=== PATIENT | male | born 1940 | race Caucasian/White ===

== ENCOUNTER → 2016-07-05 | Outpatient (CLI) | payer MEDICARE, BC ==
[2016-07-05 10:03] LABS: Appearance,Urine Clear (Clear); Bilirubin,Urine Negative (Negative); Glucose,Urine (UA) Negative (Negative); Ketones,Urine Negative (Negative); Leukocyte Esterase,Urine Negative (Negative); Nitrite,Urine Negative (Negative); PH, Urine 6.5 (5.0-8.0); Protein,Urine Negative (Negative); Specific Gravity,Urine 1.018 (1.001-1.035); UA Billing (MACRO vs. MICRO) CHEM; Urobilinogen,Urine <2.0 mg/dL (<2.0)
[2016-07-05 10:36] LABS: Calcium 10.1 mg/dL (8.4-10.2); Magnesium 2.1 mg/dL (1.6-2.3); Phosphorous 3.4 mg/dL (2.5-4.5); Potassium 5.2 mmol/L (3.5-5.1); Uric Acid 7.4 mg/dL (3.5-8.5)
[2016-07-05 10:39] LABS: Basophils % (A) 1 %; CH 26.8; CHCM 30.8; Eosinophils # (A) 0.1 k/uL (0-0.7); Eosinophils % (A) 1 %; HCT 45.1 % (39.0-53.0); HDW 2.72; HGB 13.9 gm/dL (13.0-17.5); Hypochromasia Moderate; Luc # (Auto) 0.13; Luc % (Auto) 2; Lymphocytes # (A) 1.2 k/uL (1.0-4.8); Lymphocytes % (A) 20 %; MCH 26.8 pg (25.0-35.0); MCHC 30.7 g/dL (31.0-37.0); MCV 87.3 fL (80.0-100.0); Monocytes # (A) 0.5 k/uL (0-1.0); Monocytes % (A) 9 %; Neutrophils # (A) 4.1 k/uL (1.3-7.7); Neutrophils % (A) 68 %; RBC 5.17 m/uL (4.30-5.90); WBC (Perox) 5.87
[2016-07-05 10:44] LABS: % Iron Saturation 12.5 % (20-50)
[2016-07-05 11:24] LABS: Manual Review Performed
== END | disposition home or self-care (01) ==
LOC: LABWHC1 09:20
PROVIDERS: ATTEND Nurse Practitioner Family
DX: N18.3 Chronic kidney disease, stage 3 (moderate) (principal); D64.9 Anemia, unspecified; E83.52 Hypercalcemia; E83.39 Other disorders of phosphorus metabolism; M10.9 Gout, unspecified; N39.0 Urinary tract infection, site not specified
CPT/HCPCS: 36415; 80048; 81003; 82306; 82728; 83540; 83550; 83735; 83970; 84100; 84550; 85025

== ENCOUNTER → 2016-08-07 | Outpatient (CLI) | payer MEDICARE, BC ==
--- NOTE | 2016-08-07 11:35 | XR ---
EXAMINATION TYPE: XR chest 2V DATE OF EXAM: 08/07/2016 11:02 AM COMPARISON: 08/30/2015 HISTORY: Cough and congestion FINDINGS: The lungs are clear and there is no pneumothorax, pleural effusion, or focal pneumonia. The heart i s enlarged. Postoperative change seen. Biapical pleural thickening. No interstitial edema or pleural effusion. Hypertrophic and degenerative change of the spine. IMPRESSION: 1. No acute process.
== END | disposition home or self-care (01) ==
LOC: RADXRMAIN 10:44
PROVIDERS: ATTEND Internal Medicine Sleep Medicine
DX: J40 Bronchitis, not specified as acute or chronic (principal); J44.9 Chronic obstructive pulmonary disease, unspecified
CPT/HCPCS: 71020

== ENCOUNTER → 2016-08-31 | Outpatient (CLI) | payer MEDICARE, BC ==
[2016-08-31 08:14] LABS: Potassium 4.7 mmol/L (3.5-5.1); Total Bilirubin 0.7 mg/dL (0.2-1.3); Total Protein 6.6 g/dL (6.3-8.2)
== END | disposition home or self-care (01) ==
LOC: LABWHC1 07:08
PROVIDERS: ATTEND Internal Medicine Interventional Cardiology
DX: E78.2 Mixed hyperlipidemia (principal)
CPT/HCPCS: 36415; 80053; 80061

== ENCOUNTER → 2016-11-06 | Outpatient (CLI) | payer MEDICARE, BC ==
[2016-11-06 07:46] LABS: Basophils # (A) 0.1 k/uL (0-0.2); Basophils % (A) 1 %; CHCM 31.6; Eosinophils # (A) 0.1 k/uL (0-0.7); Eosinophils % (A) 2 %; HCT 45.1 % (39.0-53.0); HDW 2.77; HGB 14.3 gm/dL (13.0-17.5); Hypochromasia Slight; Luc # (Auto) 0.19; Luc % (Auto) 4; Lymphocytes # (A) 1.4 k/uL (1.0-4.8); Lymphocytes % (A) 26 %; MCH 27.1 pg (25.0-35.0); MCHC 31.6 g/dL (31.0-37.0); MCV 85.7 fL (80.0-100.0); Mean Platelet Volume 8.1; Monocytes # (A) 0.5 k/uL (0-1.0); Monocytes % (A) 9 %; Neutrophils # (A) 3.2 k/uL (1.3-7.7); Neutrophils % (A) 59 %; RBC 5.27 m/uL (4.30-5.90); RDW 15.5 % (11.5-15.5); WBC 5.4 k/uL (3.8-10.6); WBC (Perox) 5.36
[2016-11-06 07:51] LABS: Appearance,Urine Clear (Clear); Bilirubin,Urine Negative (Negative); Glucose,Urine (UA) Negative (Negative); Ketones,Urine Negative (Negative); Leukocyte Esterase,Urine Negative (Negative); Nitrite,Urine Negative (Negative); PH, Urine 5.5 (5.0-8.0); Protein,Urine Trace (Negative); Specific Gravity,Urine 1.018 (1.001-1.035); UA Billing (MACRO vs. MICRO) CHEM; Urobilinogen,Urine <2.0 mg/dL (<2.0)
[2016-11-06 11:23] LABS: Calcium 9.8 mg/dL (8.4-10.2); Phosphorous 2.9 mg/dL (2.5-4.5); Potassium 4.5 mmol/L (3.5-5.1); Uric Acid 7.4 mg/dL (3.5-8.5)
[2016-11-06 11:40] LABS: % Iron Saturation 15.4 % (20-50)
== END | disposition home or self-care (01) ==
LOC: LABWHC1 07:13
PROVIDERS: ATTEND Nurse Practitioner Family
DX: N18.3 Chronic kidney disease, stage 3 (moderate) (principal); D64.9 Anemia, unspecified; M10.9 Gout, unspecified; N39.0 Urinary tract infection, site not specified
CPT/HCPCS: 36415; 80048; 81003; 82306; 82728; 83540; 83550; 83735; 83970; 84100; 84550; 85025

== ENCOUNTER → 2016-11-20 | Outpatient (CLI) | payer MEDICARE, BC ==
--- NOTE | 2016-11-20 09:26 | XR ---
EXAMINATION TYPE: XR thoracic spine complete DATE OF EXAM: 11/20/2016 9:20 AM COMPARISON: NONE HISTORY: Pain Alignment is anatomic. There is no compression deformities. Vertebral body height and disc interspa tasha are maintained. Postsurgical change involving the sternum and cardiac device with cardiomegaly n oted. Mild degenerative disc disease at all levels. No compression deformities. IMPRESSION: 1. Multilevel mild degenerative disc disease.
--- NOTE | 2016-11-20 09:27 | XR ---
EXAM TYPE: LUMBAR SPINE X RAY SERIES COMPARISON: NONE HISTORY: Lower back pain TECHNIQUE: 4 views are submitted. FINDINGS: Alignment is anatomic. The pedicles are intact. The transverse processes are intact. There is opal ed facet arthropathy L4-5 and L5-S1. Multilevel hypertrophic changes are seen. Moderate degenerative disc disease L4-5 and L5-S1. Vascular calcifications are seen. Ectasia of the distal abdominal aorta suspected. Correlate clinical ly. IMPRESSION: 1. Multilevel hypertrophic and degenerative disc disease.
--- NOTE | 2016-11-20 09:29 | XR ---
EXAMINATION TYPE: XR pelvis AP view DATE OF EXAM: 11/20/2016 9:20 AM COMPARISON: NONE HISTORY: Pain The osseous structures are intact and the joint spaces are preserved. No acute fracture is seen. Vi sualized bowel gas pattern is nonspecific. Postsurgical changes and vascular calcifications noted. S clerotic density involving the left proximal femur is nonspecific and possibly related to bone island . Degenerative change lower lumbar spine. Arthropathy of the hip joints. IMPRESSION: 1. No acute fracture. 2. Arthropathy of the hips with nonspecific sclerotic lesion involving the left femoral neck. Bone is land in the differential. Correlate with bone scan as clinically warranted.
--- NOTE | 2016-11-20 09:30 | XR ---
EXAMINATION TYPE: XR cervical spine limited DATE OF EXAM: 11/20/2016 9:20 AM COMPARISON: NONE HISTORY: Pain TECHNIQUE: Four views are submitted. FINDINGS: The odontoid is intact. There are no compression deformities. The prevertebral soft tissue structur es are within normal limits. Calcification in the soft tissues of the neck likely related carotid ar basilio. Sternotomy wires are seen and there is a cardiac device. Multilevel degenerative disc disease s een from level C3-T1 with hypertrophic changes. IMPRESSION: 1. Multilevel degenerative disc disease. 2. Correlate for carotid artery atherosclerotic disease.
== END | disposition home or self-care (01) ==
LOC: RADXRMAIN 08:34
PROVIDERS: ATTEND Chiropractor
DX: M51.35 Other intervertebral disc degeneration, thoracolumbar region (principal); M50.30 Other cervical disc degeneration, unspecified cervical region; M12.852 Other specific arthropathies, not elsewhere classified, left hip; M85.88 Other specified disorders of bone density and structure, other site
CPT/HCPCS: 72040; 72072; 72100; 72170

== ENCOUNTER → 2017-01-29 | Outpatient (CLI) | payer MEDICARE, BC ==
[2017-01-29 08:46] LABS: Calcium 9.2 mg/dL (8.4-10.2); Potassium 4.9 mmol/L (3.5-5.1)
== END | disposition home or self-care (01) ==
LOC: LABWHC1 07:16
PROVIDERS: ATTEND Nurse Practitioner Family
DX: N18.3 Chronic kidney disease, stage 3 (moderate) (principal)
CPT/HCPCS: 36415; 80048

== ENCOUNTER → 2017-03-19 | Outpatient (CLI) | payer MEDICARE, BC ==
[2017-03-19 09:32] LABS: Anisocytosis Slight; Basophils % (A) 1 %; CH 28.4; CHCM 32.4; Eosinophils # (A) 0.1 k/uL (0-0.7); Eosinophils % (A) 2 %; HCT 44.3 % (39.0-53.0); HDW 2.63; HGB 13.7 gm/dL (13.0-17.5); Luc # (Auto) 0.16; Luc % (Auto) 3; Lymphocytes # (A) 1.4 k/uL (1.0-4.8); Lymphocytes % (A) 26 %; MCH 27.4 pg (25.0-35.0); MCHC 30.9 g/dL (31.0-37.0); MCV 88.5 fL (80.0-100.0); Mean Platelet Volume 8.5; Monocytes # (A) 0.4 k/uL (0-1.0); Monocytes % (A) 8 %; Neutrophils # (A) 3.2 k/uL (1.3-7.7); Neutrophils % (A) 60 %; RBC 5.01 m/uL (4.30-5.90); RDW 17.1 % (11.5-15.5); WBC 5.3 k/uL (3.8-10.6); WBC (Perox) 5.39
[2017-03-19 09:51] LABS: Calcium 9.7 mg/dL (8.4-10.2); Potassium 4.8 mmol/L (3.5-5.1)
[2017-03-19 16:47] LABS: Iron Saturation 19.95 (15.00-50.00)
== END | disposition home or self-care (01) ==
LOC: LABWHC1 08:21
PROVIDERS: ATTEND Nurse Practitioner Family
DX: N18.3 Chronic kidney disease, stage 3 (moderate) (principal); D64.9 Anemia, unspecified; E83.52 Hypercalcemia
CPT/HCPCS: 36415; 80048; 82306; 82570; 82728; 83540; 83550; 83970; 84156; 85025

== ENCOUNTER → 2017-04-23 | Outpatient (CLI) | payer MEDICARE, BC ==
[2017-04-23 08:12] LABS: ALT 28 U/L (21-72); AST 32 U/L (17-59); Alkaline Phosphatase 29 U/L (38-126); Anion Gap 8 mmol/L; Blood Urea Nitrogen 35 mg/dL (9-20); Calcium 9.7 mg/dL (8.4-10.2); Carbon Dioxide 28 mmol/L (22-30); Chloride 106 mmol/L (98-107); Cholesterol 111 mg/dL (<200); Glucose 88 mg/dL (74-99); HDL Cholesterol 43 mg/dL (40-60); Non-African American GFR(MDRD) 50 (>60 ml/min/1.73 sqM); Potassium 4.7 mmol/L (3.5-5.1); Sodium 142 mmol/L (137-145); Total Bilirubin 0.6 mg/dL (0.2-1.3); Total Protein 6.6 g/dL (6.3-8.2)
== END | disposition home or self-care (01) ==
LOC: LABWHC1 07:12
PROVIDERS: ATTEND Internal Medicine Interventional Cardiology
DX: N18.3 Chronic kidney disease, stage 3 (moderate) (principal); E78.2 Mixed hyperlipidemia
CPT/HCPCS: 36415; 80053; 80061

== ENCOUNTER → 2017-05-22 | Outpatient (CLI) | payer MEDICARE, BC ==
--- NOTE | 2017-05-22 11:42 | US ---
EXAMINATION TYPE: US venous doppler duplex LE RT DATE OF EXAM: 05/22/2017 11:24 AM COMPARISON: NONE CLINICAL HISTORY: 76-year-old male R60.0 EDEMA. SIDE PERFORMED: Right TECHNIQUE: The lower extremity deep venous system is examined utilizing real time linear array sonog francie with graded compression, doppler sonography and color-flow sonography. FINDINGS: VESSELS IMAGED: External Iliac Vein (EIV) Common Femoral Vein Deep Femoral Vein Greater Saphenous Vein * Femoral Vein Popliteal Vein Small Saphenous Vein * Proximal Calf Veins (* superficial vessels) Right Leg: Negative for DVT Preliminary results called to office and given to Penny immediately following exam. IMPRESSION: No evidence for DVT within the right lower extremity imaged from the groin to the upper calf.
== END | disposition home or self-care (01) ==
LOC: RADUSWWP 10:38
PROVIDERS: ATTEND Family Medicine
DX: R60.0 Localized edema (principal)

== ENCOUNTER → 2017-07-03 | Outpatient (CLI) | payer MEDICARE, BC ==
[2017-07-03 08:29] LABS: Appearance,Urine Clear (Clear); Bilirubin,Urine Negative (Negative); Blood,Urine Negative (Negative); Color,Urine Yellow; Glucose,Urine (UA) Negative (Negative); Ketones,Urine Negative (Negative); Leukocyte Esterase,Urine Negative (Negative); Nitrite,Urine Negative (Negative); Protein,Urine Negative (Negative); Specific Gravity,Urine 1.016 (1.001-1.035); Urobilinogen,Urine <2.0 mg/dL (<2.0)
[2017-07-03 08:30] LABS: Basophils # (A) 0.1 k/uL (0-0.2); Basophils % (A) 1 %; Eosinophils # (A) 0.2 k/uL (0-0.7); Eosinophils % (A) 2 %; HCT 46.2 % (39.0-53.0); HGB 14.1 gm/dL (13.0-17.5); Hypochromasia Slight; Lymphocytes # (A) 1.9 k/uL (1.0-4.8); Lymphocytes % (A) 26 %; MCHC 30.5 g/dL (31.0-37.0); MCV 88.4 fL (80.0-100.0); Mean Platelet Volume 8.5; Monocytes # (A) 0.6 k/uL (0-1.0); Monocytes % (A) 9 %; Neutrophils # (A) 4.3 k/uL (1.3-7.7); Neutrophils % (A) 59 %; Platelet Count 358 k/uL (150-450); RBC 5.23 m/uL (4.30-5.90); RDW 15.5 % (11.5-15.5); WBC 7.2 k/uL (3.8-10.6)
[2017-07-03 08:34] LABS: Anion Gap 8 mmol/L; Blood Urea Nitrogen 36 mg/dL (9-20); Carbon Dioxide 31 mmol/L (22-30); Chloride 103 mmol/L (98-107); Glucose 97 mg/dL (74-99); Phosphorus 3.5 mg/dL (2.5-4.5); Potassium 5.2 mmol/L (3.5-5.1); Sodium 142 mmol/L (137-145); Uric Acid 10.3 mg/dL (3.5-8.5)
[2017-07-03 16:07] LABS: Iron Saturation 9.34 (15.00-50.00)
[2017-07-03 16:15] LABS: Vitamin D 25 Hydroxy 40.2 ng/mL (30.0-100.0)
[2017-07-03 17:51] LABS: Parathyroid Hormone Intact 51.4 pg/mL (14.0-72.0)
== END | disposition home or self-care (01) ==
LOC: LABWHC1 07:28
PROVIDERS: ATTEND Internal Medicine Nephrology
DX: N18.3 Chronic kidney disease, stage 3 (moderate) (principal); D64.9 Anemia, unspecified; E55.9 Vitamin D deficiency, unspecified; E21.3 Hyperparathyroidism, unspecified; M10.9 Gout, unspecified; N39.0 Urinary tract infection, site not specified
CPT/HCPCS: 36415; 80048; 81003; 82306; 82728; 83540; 83550; 83735; 83970; 84100; 84550; 85025

== ENCOUNTER → 2017-07-23 | Outpatient (CLI) | payer MEDICARE, BC ==
[2017-07-23 08:48] LABS: ALT 30 U/L (21-72); AST 24 U/L (17-59); Cholesterol 127 mg/dL (<200); HDL Cholesterol 40 mg/dL (40-60); LDL Cholesterol,Calculated 63 mg/dL (0-99); Triglycerides 118 mg/dL (<150)
== END | disposition home or self-care (01) ==
LOC: LABWHC1 08:17
PROVIDERS: ATTEND Internal Medicine Interventional Cardiology
DX: E78.2 Mixed hyperlipidemia (principal)
CPT/HCPCS: 36415; 80061; 84450; 84460

== ENCOUNTER → 2017-10-10 | Outpatient (CLI) | payer MEDICARE, BC ==
--- NOTE | 2017-10-10 13:18 | CT ---
EXAMINATION TYPE: CT chest wo con DATE OF EXAM: 10/10/2017 COMPARISON: CT chest October 06, 2016 and older studies HISTORY: Thoracic aneurysm without mention of rupture CT DLP: 288 mGycm. Automated Exposure Control for Dose Reduction was Utilized. TECHNIQUE: CT scan of the thorax is performed without IV contrast. FINDINGS: LUNGS: Mild underlying emphysematous change is redemonstrated. There is medial right middle lobe line ar scarring near axial image 38 again seen. There is central left basilar linear scarring near diaphr agm redemonstrated. There is mild to moderate biapical pleural/parenchymal scarring redemonstrated. N o suspicious consolidation is present. No pleural effusion or pneumothorax is evident bilaterally. No new suspicious nodule or mass is identified. MEDIASTINUM: Lack of IV contrast is noted to limit evaluation for mediastinal and especially hilar ad enopathy. Post CABG changes with mediastinal clips and sternal wires is redemonstrated. There are no definitive greater than 1 cm hilar or mediastinal lymph nodes. No significant pericardial effusion is seen. Cardiomegaly is again seen. Multi lead pacemaker/defibrillator is redemonstrated. Moderate t o severe right atrial dilatation is again seen. Ascending aorta measures up to 4.1 cm diameter axial image 27 significant change from most recent study. There is persistent mild to moderate calcified pl aque along course of the thoracic aorta not significantly changed. Along the anterolateral aspect of the proximal descending aorta just past three-vessel takeoff there is redemonstration of eccentric an eurysm 4.1 x 4.0 cm axial image 20 accounting for technical differences, not significantly changed fr om most recent study, progression from older studies is however noted. OTHER: Small hiatal hernia is redemonstrated. There are small simple appearing cysts in visualized po rtion of upper poles of both kidneys redemonstrated. Small degree of bilateral gynecomastia is again seen. Moderate multilevel anterior and lateral spurring in the thoracic spine is seen. IMPRESSION: 1. Probable minimal interval progression of eccentric proximal descending thoracic aortic aneurysm me asuring up to 4.1 cm currently that continues to slowly increase in size over older studies.
== END | disposition home or self-care (01) ==
LOC: RADCTMAIN 12:08
PROVIDERS: ATTEND Thoracic Surgery (Cardiothoracic Vascular Surgery)
DX: I71.2 Thoracic aortic aneurysm, without rupture (principal)
CPT/HCPCS: 71250

== ENCOUNTER 2017-11-30 19:06 | Emergency (ER) | payer MEDICARE, BC ==
[2017-11-30 19:18] VITALS: RESP 18
--- NOTE | 2017-11-30 20:04 | ED ---
Head Injury HPI - General Chief complaint: Head Injury Stated complaint: Bumped head, on blood thiners Time Seen by Provider: 11/30/17 19:21 Source: patient Mode of arrival: ambulatory Limitations: no limitations - History of Present Illness Initial comments: 77-year-old male patient presents to the emergency department today for evaluation after sustaining a head injury. Patient states around 10 this morning he was loading a generator onto a hand cart when the cart flipped up and the handle struck him in the forehead. He denies any loss of consciousness with this injury. States he has not been having any headaches, dizziness, weakness, blurred vision, or double vision since. States that he does takes xarelto and thought he should be checked out. He has had no nausea or vomiting. States he feels fine other than the bump on his head. Patient denies any neck pain, back pain, chest pain, shortness of breath, abdominal pain, or difficulties with bowel movements or urination. MD Complaint: head injury - Related Data Home Medications Medication Instructions Recorded Confirmed ALPRAZolam [Xanax] 0.5 mg PO HS 08/30/15 11/30/17 Aspirin [Adult Low Dose Aspirin EC] 81 mg PO DAILY 08/30/15 11/30/17 Cholecalciferol [Vitamin D3] 1,000 unit PO DAILY 08/30/15 11/30/17 Fenofibrate Nanocrystallized 145 mg PO DAILY 08/30/15 11/30/17 [Tricor] Fish Oil/Dha/Epa [Fish Oil 1,200 1 tab PO BID 08/30/15 11/30/17 mg Fish Oil] Multivitamins, Thera [Multivitamin] 1 tab PO DAILY 08/30/15 11/30/17 Pantoprazole Sodium [Protonix] 40 mg PO DAILY 08/30/15 11/30/17 Rivaroxaban [Xarelto] 20 mg PO DAILY 08/30/15 11/30/17 Simvastatin [Zocor] 20 mg PO HS 08/30/15 11/30/17 Tadalafil [Cialis] 5 mg PO DAILY PRN 08/30/15 11/30/17 Tamsulosin HCl [Flomax] 0.4 mg PO HS 08/30/15 11/30/17 amLODIPine [Norvasc] 10 mg PO DAILY 08/30/15 11/30/17 Burnet 1,950 mg PO BID 11/30/17 11/30/17 Furosemide [Lasix] 20 mg PO DAILY 11/30/17 11/30/17 Montelukast [Singulair] 10 mg PO HS 11/30/17 11/30/17 Potassium Chloride [Klor-Con 10] 10 meq PO DAILY 11/30/17 11/30/17 Allergies/Adverse reactions: Allergies Allergy/AdvReac Type Severity Reaction Status Date / Time morphine Allergy Nausea & Verified 11/30/17 19:33 Vomiting Review of Systems ROS Statement: Those systems with pertinent positive or pertinent negative responses have been documented in the HPI. ROS Other: All systems not noted in ROS Statement are negative. Past Medical History Past Medical History: Atrial Fibrillation, GERD/Reflux, Prostate Disorder Additional Past Medical History / Comment(s): aortic aneurysm (new one not repaired yet), History of Any Multi-Drug Resistant Organisms: None Reported Past Surgical History: Coronary Bypass/CABG, Hernia Repair Additional Past Surgical History / Comment(s): pacer, aortic aneurysm repair, Past Psychological History: No Psychological Hx Reported Smoking Status: Former smoker Past Alcohol Use History: Occasional Past Drug Use History: None Reported General Exam Limitations: no limitations General appearance: alert, in no apparent distress, other (This is a well- developed, well-nourished elderly male patient no acute distress. Vital signs upon presentation are temperature 97.0F, pulse 80, respirations 18, blood pressure 129/65, pulse ox 97% on room air.) Head exam: Present: other (There is a hematoma to the central frontal scalp. There is no bony step-off or deformity noted to palpation around this area.) Eye exam: Present: normal appearance, PERRL, EOMI. Absent: scleral icterus, conjunctival injection, nystagmus, periorbital swelling ENT exam: Present: normal exam, normal oropharynx, mucous membranes moist Neck exam: Present: normal inspection, full ROM, other (Nontender, no step-off, no deformity to firm midline palpation of the posterior cervical spine. Full range of motion without pain or limitation.). Absent: tenderness, meningismus, lymphadenopathy Respiratory exam: Present: normal lung sounds bilaterally. Absent: respiratory distress, wheezes, rales, rhonchi, stridor Cardiovascular Exam: Present: regular rate, normal rhythm, normal heart sounds. Absent: systolic murmur, diastolic murmur, rubs, gallop, clicks GI/Abdominal exam: Present: soft, normal bowel sounds. Absent: distended, tenderness, guarding, rebound, rigid Back exam: Present: normal inspection. Absent: vertebral tenderness Neurological exam: Present: alert, oriented X3, CN II-XII intact Psychiatric exam: Present: normal affect, normal mood Skin exam: Present: warm, dry, intact, normal color. Absent: rash Course Vital Signs 11/30/17 11/30/17 11/30/17 19:14 21:20 21:35 Temperature 97.0 F L 97.3 F L Pulse Rate 80 66 Respiratory 18 18 Rate Blood Pressure 129/65 132/72 O2 Sat by Pulse 97 98 Oximetry Medical Decision Making - Medical Decision Making 77-year-old male patient presented to the emergency department today for evaluation after sustaining a head injury. Physical examination does reveal hematoma to the central frontal scalp, there is no bony step-off or deformity noted to palpation around this area. Patient is neurologically intact. CT of the brain and C-spine was performed. There is no evidence of acute intracranial abnormalities, cervical spine does demonstrate multilevel degenerative changes however no acute fractures or dislocations. Did discuss findings and results with the patient and his . They are discharged home to follow-up with his primary care physician. Return parameters discussed in detail. They verbalize understanding and agree with this plan. - Radiology Data Radiology results: report reviewed, image reviewed Computed tomography scan of the head and C-spine were performed without contrast. Impression by Dr. Keith shows no acute fracture dislocation evident in the cervical spine. Multilevel degenerative changes of the cervical spine as detailed above. No acute intracranial hemorrhage or midline shift is seen. Mild to moderate diffuse renal atrophy and chronic small vessel ischemic changes appreciated. Disposition Clinical Impression: Head injury, Scalp hematoma Disposition: HOME SELF-CARE Condition: Good Instructions: Head Injury (ED), Hematoma (ED) Additional Instructions: Apply ice to the forehead. Return here immediately for any signs or symptoms of worsening head injury including but not limited to increased headache, blurred vision, nausea, vomiting, dizziness, or confusion. Follow-up with your primary care physician for recheck in 1-2 days. Return here immediately for any new, worsening, or concerning symptoms. Is patient prescribed a controlled substance at d/c from ED?: No Referrals: Seth Rey DO [Primary Care Provider] - 1-2 days Time of Disposition: 21:06
--- NOTE | 2017-11-30 20:59 | CT ---
EXAMINATION TYPE: CT brain alfredo bejarano DATE OF EXAM: 11/30/2017 COMPARISON: NONE HISTORY: Hit with hand cart in frontal region. No LOC. Headache and neck pain. CT DLP: 1406.4 mGycm. Automated Exposure Control for Dose Reduction was Utilized. TECHNIQUE: CT scan of the head and cervical spine are performed without contrast. FINDINGS: There is no acute intracranial hemorrhage or midline shift identified. There is ventricul ar and sulcal prominence consistent with diffuse cerebral atrophy. There is low-attenuation in the pe riventricular white matter. The globes are intact and the visualized sinuses are clear. The calvarium is intact. Cervical spine is visualized in its entirety from C1 through upper thoracic levels and demonstrates s atisfactory alignment without evidence of acute fracture or dislocation. Prevertebral soft tissue ap pears within normal limits. The C1-C2 articulation is within normal limits on the coronal images. Vertebral body heights are maintained. There is mild to moderate spurring and disc space narrowing C3 -C4 and C5-C6 levels. Posterior spur disc complex effacing anterior thecal sac C5-C6 level on sagitta l images. Review of axial images shows right paracentral spur disc complex effacing anterolateral the guy sac and causing mild right-sided neural foraminal narrowing C3-C4 level. There is some marginal s purring causing moderate left-sided neural foraminal narrowing C4-C5 level. Marginal spurring contrib utes to bilateral moderate to severe neural foraminal narrowing C5-C6 level. Posterior spur disc comp mari effacing anterolateral thecal sac and causes asymmetric moderate right-sided neural foraminal js rowing at C6-C7 level. Thyroid gland is within normal limits. Lung apices are minimally imaged. There is moderate to severe calcified plaque at bilateral carotid bulbs incidentally seen. IMPRESSION: 1. There is no acute fracture or dislocation evident in the cervical spine. Multilevel degenerative c hanges in cervical spine as detailed above. 2. No acute intracranial hemorrhage or midline shift is seen. Mild to moderate diffuse cerebral atrop hy and chronic small vessel ischemic change is appreciated.
[2017-11-30 21:21] VITALS: BP 132/72; PULSE 66
[2017-11-30 21:36] VITALS: TEMP 97.3
== END 2017-11-30 21:35 | disposition home or self-care (01) ==
LOC: EC 19:06
DX: S00.03XA Contusion of scalp, initial encounter (principal); I48.91 Unspecified atrial fibrillation; K21.9 Gastro-esophageal reflux disease without esophagitis; N42.9 Disorder of prostate, unspecified; Z87.891 Personal history of nicotine dependence; Z79.01 Long term (current) use of anticoagulants; Z79.82 Long term (current) use of aspirin; Z79.899 Other long term (current) drug therapy; Z88.5 Allergy status to narcotic agent; Z95.1 Presence of aortocoronary bypass graft; W22.8XXA Striking against or struck by other objects, initial encounter; Y92.009 Unspecified place in unspecified non-institutional (private) residence as the place of occurrence of the external cause
CPT/HCPCS: 70450; 72125; 99283

== ENCOUNTER → 2017-12-12 | Outpatient (CLI) | payer MEDICARE, BC ==
--- NOTE | 2017-12-12 11:32 | US ---
EXAMINATION TYPE: US kidneys/renal and bladder DATE OF EXAM: 12/12/2017 COMPARISON: US 07/13/2015, CT 08/27/2012 CLINICAL HISTORY: N18.3 Chronic kidney disease, stage 3 (moderate). EXAM MEASUREMENTS: Right Kidney: 9.9 x 5.0 x 5.1 cm Left Kidney: 11.3 x 4.8 x 5.2 cm Right Kidney: No hydronephrosis. Multiple cysts visualized, largest upper pole measuring 3.3 x 3.4 x 3.3 cm Left Kidney: No hydronephrosis. Multiple cysts visualized, largest upper pole measuring 2.7 x 3.2 x 2 .8 cm. This cyst appears to have irregular boarders and an internal septation. Bladder: Not fully distended, wnl as visualized Bilateral Jets seen: No, bladder not fully distended IMPRESSION: Multiple bilateral simple appearing renal cysts the largest on the right measuring up to 3.4 cm and t he largest on the left measuring up to 3.2 cm. The left renal cyst is minimally complex with internal septation in the upper pole and appears new from the prior exam. Six-month follow up is recommended for this minimally complex cystic lesion.
== END | disposition home or self-care (01) ==
LOC: RADUSWWP 09:30
PROVIDERS: ATTEND Internal Medicine Nephrology
DX: N28.1 Cyst of kidney, acquired (principal); N18.3 Chronic kidney disease, stage 3 (moderate)
CPT/HCPCS: 76770

== ENCOUNTER → 2018-02-04 | Outpatient (CLI) | payer MEDICARE, BC ==
[2018-02-04 08:03] LABS: ALT 27 U/L (21-72); AST 24 U/L (17-59); Cholesterol 118 mg/dL (<200); HDL Cholesterol 39 mg/dL (40-60); Triglycerides 95 mg/dL (<150)
[2018-02-04 08:04] LABS: LDL Cholesterol,Calculated 60 mg/dL (0-99)
== END | disposition home or self-care (01) ==
LOC: LABWHC1 07:06
PROVIDERS: ATTEND Nurse Practitioner Adult Health
DX: E78.2 Mixed hyperlipidemia (principal)
CPT/HCPCS: 36415; 80061; 84450; 84460

== ENCOUNTER → 2018-04-30 | Outpatient (CLI) | payer MEDICARE, BC ==
[2018-04-30 07:56] LABS: Basophils % (A) 1 %; Eosinophils # (A) 0.1 k/uL (0-0.7); Eosinophils % (A) 2 %; HCT 42.8 % (39.0-53.0); HGB 13.9 gm/dL (13.0-17.5); Lymphocytes # (A) 1.2 k/uL (1.0-4.8); Lymphocytes % (A) 23 %; MCH 28.4 pg (25.0-35.0); MCHC 32.5 g/dL (31.0-37.0); MCV 87.4 fL (80.0-100.0); Mean Platelet Volume 8.4; Monocytes # (A) 0.4 k/uL (0-1.0); Monocytes % (A) 7 %; Neutrophils # (A) 3.5 k/uL (1.3-7.7); Neutrophils % (A) 65 %; Platelet Count 294 k/uL (150-450); RDW 14.9 % (11.5-15.5); WBC 5.4 k/uL (3.8-10.6)
[2018-04-30 08:41] LABS: Appearance,Urine Clear (Clear); Bilirubin,Urine Negative (Negative); Blood,Urine Negative (Negative); Color,Urine Yellow; Glucose,Urine (UA) Negative (Negative); Ketones,Urine Negative (Negative); Leukocyte Esterase,Urine Negative (Negative); Nitrite,Urine Negative (Negative); Protein,Urine Negative (Negative); Specific Gravity,Urine 1.017 (1.001-1.035); Urobilinogen,Urine <2.0 mg/dL (<2.0)
[2018-04-30 16:22] LABS: Iron Saturation 15.14 (15.00-50.00)
[2018-04-30 16:31] LABS: Vitamin D 25 Hydroxy 45.7 ng/mL (30.0-100.0)
[2018-04-30 17:00] LABS: Anion Gap 7.5 mmol/L (4.00-12.00); Calcium 9.1 mg/dL (8.7-10.3); Carbon Dioxide 28.5 mmol/L (21.6-31.8); Potassium 4.1 mmol/L (3.5-5.5); Uric Acid 8.5 mg/dL (3.7-8.7)
[2018-04-30 17:05] LABS: Parathyroid Hormone Intact 44.1 pg/mL (14.0-72.0)
== END | disposition home or self-care (01) ==
LOC: LABWHC1 07:07
PROVIDERS: ATTEND Nurse Practitioner Family
DX: N18.3 Chronic kidney disease, stage 3 (moderate) (principal); D63.1 Anemia in chronic kidney disease; E55.9 Vitamin D deficiency, unspecified; E21.3 Hyperparathyroidism, unspecified; M10.9 Gout, unspecified; N39.0 Urinary tract infection, site not specified
CPT/HCPCS: 36415; 80048; 81003; 82306; 82728; 83540; 83550; 83970; 84550; 85025

== ENCOUNTER → 2018-06-06 | Outpatient (CLI) | payer MEDICARE, BC ==
--- NOTE | 2018-06-06 10:26 | US ---
EXAMINATION TYPE: US kidneys/renal and bladder DATE OF EXAM: 06/06/2018 COMPARISON: 12/12/2017 CLINICAL HISTORY: 77-year-old male N28.1 Bilateral renal cyst. TECHNIQUE: Multiple sonographic images of the kidneys and bladder are obtained. FINDINGS: EXAM MEASUREMENTS: Right Kidney: 10.9 x 4.8 x 5.1 cm Left Kidney: 12.9 x 5.7 x 5.6 cm No hydronephrosis on either side. Right Kidney: multiple cysts seen, largest upper pole measures 3.1 x 3.4 x 3.6 cm, versus 3.4 cm, pre viously. Left Kidney: multiple cysts seen, largest upper pole measures 2.9 x 2.2 x 2.2 cm Versed 3.2 cm, previ ously. This cyst again shows slightly irregular contour but no suspicious internal complexity. Bladder: not well distended Bilateral Jets seen: No IMPRESSION: 1. No hydronephrosis. 2. Multiple bilateral renal cysts measuring up to 3.6 cm. 3. The questioned left upper pole renal cyst is redemonstrated, slightly smaller at 2.9 cm versus 3.2 cm, previously. Area remains slightly irregular. The previously seen mild internal complexity is not identified on the present study. Consider a 6-12 month follow-up surveillance exam as a precautionar y measure.
== END | disposition home or self-care (01) ==
LOC: RADUSWWP 09:24
PROVIDERS: ATTEND Internal Medicine Nephrology
DX: N28.1 Cyst of kidney, acquired (principal)
CPT/HCPCS: 76770

== ENCOUNTER → 2018-08-20 | Outpatient (CLI) | payer MEDICARE, BC ==
[2018-08-20 11:54] LABS: Albumin 4.2 g/dL (3.80-4.90); Albumin/Globulin Ratio 2.1 (1.60-3.17); Calcium 9.1 mg/dL (8.7-10.3); LDL Cholesterol,Calculated 49.8 mg/dL (0.0-131.0); Potassium 4.5 mmol/L (3.5-5.5); Total Bilirubin 0.8 mg/dL (0.3-1.2); Total Protein 6.2 g/dL (6.2-8.2); VLDL Calculation 17.2 mg/dL (5.00-40.00)
== END ==
LOC: LABWHC1 06:30
PROVIDERS: ATTEND Internal Medicine Interventional Cardiology
DX: E78.2 Mixed hyperlipidemia (principal)
CPT/HCPCS: 36415; 80053; 80061

== ENCOUNTER → 2018-10-09 | Outpatient (CLI) | payer MEDICARE, BC ==
[2018-10-09 07:41] LABS: Appearance,Urine Clear (Clear); Bilirubin,Urine Negative (Negative); Blood,Urine Negative (Negative); Color,Urine Light Yellow; Glucose,Urine (UA) Negative (Negative); Ketones,Urine Negative (Negative); Leukocyte Esterase,Urine Negative (Negative); Nitrite,Urine Negative (Negative); Protein,Urine Negative (Negative); Specific Gravity,Urine 1.007 (1.001-1.035); Urobilinogen,Urine <2.0 mg/dL (<2.0)
[2018-10-09 08:28] LABS: Anisocytosis Slight; Basophils % (A) 1 %; Eosinophils # (A) 0.3 k/uL (0-0.7); Eosinophils % (A) 6 %; HCT 42.6 % (39.0-53.0); HGB 13.2 gm/dL (13.0-17.5); Hypochromasia Moderate; Lymphocytes # (A) 1.5 k/uL (1.0-4.8); Lymphocytes % (A) 30 %; MCHC 30.9 g/dL (31.0-37.0); MCV 84.1 fL (80.0-100.0); Monocytes # (A) 0.6 k/uL (0-1.0); Monocytes % (A) 11 %; Neutrophils # (A) 2.4 k/uL (1.3-7.7); Neutrophils % (A) 49 %; Platelet Count 316 k/uL (150-450); RBC 5.06 m/uL (4.30-5.90); RDW 16.1 % (11.5-15.5); WBC 4.9 k/uL (3.8-10.6)
[2018-10-09 12:03] LABS: Parathyroid Hormone Intact 55.6 pg/mL (14.0-72.0)
[2018-10-09 12:13] LABS: Vitamin D 25 Hydroxy 40.8 ng/mL (30.0-100.0)
[2018-10-09 12:23] LABS: Albumin 4.2 g/dL (3.80-4.90); Anion Gap 8.2 mmol/L (4.00-12.00); Carbon Dioxide 26.8 mmol/L (21.6-31.8); Magnesium 1.8 mg/dL (1.5-2.4); Phosphorus 3.3 mg/dL (2.4-5.1); Uric Acid 6.8 mg/dL (3.7-8.7)
[2018-10-09 13:38] LABS: Iron Saturation 7.12 (15.00-50.00)
[2018-10-10 03:48] LABS: Total Protein,Urine Random 4.2 mg/dL (0.0-13.5)
== END | disposition home or self-care (01) ==
LOC: LABWHC1 06:42
PROVIDERS: ATTEND Internal Medicine Nephrology
DX: N18.3 Chronic kidney disease, stage 3 (moderate) (principal); E55.9 Vitamin D deficiency, unspecified; D50.9 Iron deficiency anemia, unspecified; N25.81 Secondary hyperparathyroidism of renal origin; D63.1 Anemia in chronic kidney disease; M10.9 Gout, unspecified; N39.0 Urinary tract infection, site not specified
CPT/HCPCS: 36415; 80048; 81003; 82040; 82306; 82570; 82728; 83540; 83550; 83735; 83970; 84100; 84156; 84550; 85025

== ENCOUNTER → 2018-10-21 | Outpatient (CLI) | payer MEDICARE, BC ==
--- NOTE | 2018-10-21 09:37 | CT ---
EXAMINATION TYPE: CT chest wo con DATE OF EXAM: 10/21/2018 COMPARISON: 10/10/2017 HISTORY: Thoracic aortic aneurysm CT DLP: 271.[address] of the chest was performed with lung and mediastinal window settings submitted. The la ck of contrast limits evaluation of the vascular, mediastinal and parenchymal structures including th e upper abdomen. LUNGS: The lungs are clear and free of infiltrate. No atelectasis. No pulmonary nodule or mass is de tected. No pleural effusion. No CT evidence of interstitial lung disease. MEDIASTINUM/CRISTHIAN: Lack of contrast limits evaluation of the aorta. Ascending aorta measures up to 4.3 cm diameter versus 4.1 cm previously. There is persistent mild to moderate calcified plaque along co urse of the thoracic aorta not significantly changed. Along the anterolateral aspect of the proximal descending aorta just past three-vessel takeoff there is redemonstration of eccentric aneurysm measur ing about 4.3 x 3.9 cm versus 4.1 x 4.0 cm previously. There is evidence of cardiomegaly. Hiatal prakash ia noted. Coronary artery calcifications. Changes of prior sternotomy. Pacer device identified. UPPER ABDOMEN: No significant abnormality is seen. OTHER: No significant other abnormality. IMPRESSION: 1. Ascending thoracic aortic aneurysm has mildly progressed as has eccentric aneurysm of the proxima l descending thoracic aorta.
== END | disposition home or self-care (01) ==
LOC: RADCTMAIN 08:58
PROVIDERS: ATTEND Thoracic Surgery (Cardiothoracic Vascular Surgery)
DX: I71.2 Thoracic aortic aneurysm, without rupture (principal)
CPT/HCPCS: 71250

== ENCOUNTER → 2019-01-31 | Outpatient (CLI) | payer MEDICARE, BC ==
[2019-01-31 18:38] LABS: LDL Cholesterol,Calculated 52.4 mg/dL (0.0-131.0); VLDL Calculation 15.6 mg/dL (5.00-40.00)
== END | disposition home or self-care (01) ==
LOC: LABWHC1 07:15
PROVIDERS: ATTEND Nurse Practitioner Adult Health
DX: E78.2 Mixed hyperlipidemia (principal)
CPT/HCPCS: 36415; 80061; 84450; 84460

== ENCOUNTER → 2019-03-11 | Outpatient (CLI) | payer MEDICARE, BC ==
[2019-03-11 08:38] LABS: Anisocytosis Slight; Basophils # (A) 0.1 k/uL (0-0.2); Basophils % (A) 1 %; Eosinophils # (A) 0.1 k/uL (0-0.7); Eosinophils % (A) 2 %; HCT 45.9 % (39.0-53.0); HGB 14.6 gm/dL (13.0-17.5); Lymphocytes # (A) 1.5 k/uL (1.0-4.8); Lymphocytes % (A) 22 %; MCH 28.3 pg (25.0-35.0); MCHC 31.9 g/dL (31.0-37.0); MCV 88.8 fL (80.0-100.0); Mean Platelet Volume 7.6; Monocytes # (A) 0.5 k/uL (0-1.0); Monocytes % (A) 8 %; Neutrophils # (A) 4.5 k/uL (1.3-7.7); Neutrophils % (A) 65 %; Platelet Count 301 k/uL (150-450); RBC 5.17 m/uL (4.30-5.90); RDW 16.3 % (11.5-15.5); WBC 6.9 k/uL (3.8-10.6)
[2019-03-11 09:38] LABS: Appearance,Urine Clear (Clear); Bilirubin,Urine Negative (Negative); Blood,Urine Negative (Negative); Color,Urine Yellow; Glucose,Urine (UA) Negative (Negative); Ketones,Urine Negative (Negative); Leukocyte Esterase,Urine Negative (Negative); Nitrite,Urine Negative (Negative); PH, Urine 5.5 (5.0-8.0); Protein,Urine Negative (Negative); Specific Gravity,Urine 1.017 (1.001-1.035); Urobilinogen,Urine <2.0 mg/dL (<2.0)
[2019-03-11 17:17] LABS: Iron Saturation 18.28 (15.00-50.00)
[2019-03-11 17:52] LABS: African American GFR (CKD) 73.1 (60.0-200.0); Albumin 4.1 g/dL (3.80-4.90); Anion Gap 7.7 mmol/L (4.00-12.00); BUN/Creat Ratio 22.73 Ratio (12.00-20.00); Calcium 9.4 mg/dL (8.7-10.3); Carbon Dioxide 27.3 mmol/L (21.6-31.8); Magnesium 1.9 mg/dL (1.5-2.4); Phosphorus 3.3 mg/dL (2.4-5.1); Potassium 4.7 mmol/L (3.5-5.5); Uric Acid 9.5 mg/dL (3.7-8.7)
[2019-03-12 01:33] LABS: Creatinine,Urine Random 116.6 mg/dL
[2019-03-12 01:46] LABS: Total Protein,Urine Random 7.1 mg/dL (0.0-13.5)
== END ==
LOC: LABWHC1 07:19
PROVIDERS: ATTEND Internal Medicine Nephrology
DX: N18.3 Chronic kidney disease, stage 3 (moderate) (principal); E79.0 Hyperuricemia without signs of inflammatory arthritis and tophaceous disease; D50.9 Iron deficiency anemia, unspecified; E55.9 Vitamin D deficiency, unspecified; N39.0 Urinary tract infection, site not specified; R80.9 Proteinuria, unspecified
CPT/HCPCS: 36415; 80048; 81003; 82040; 82570; 82728; 83540; 83550; 83735; 83970; 84100; 84156; 84550; 85025

== ENCOUNTER → 2019-04-28 | Outpatient (CLI) | payer MEDICARE, BC ==
[2019-04-28 16:59] LABS: C Reactive Protein <0.4 mg/dL (0.0-0.8)
== END | disposition home or self-care (01) ==
LOC: LABWHC1 11:05
PROVIDERS: ATTEND Internal Medicine
DX: R19.4 Change in bowel habit (principal); R19.7 Diarrhea, unspecified
CPT/HCPCS: 36415; 83993; 84439; 84443; 85652; 86140; 87328; 87329

== ENCOUNTER → 2019-05-13 | Day surgery (SDC) | payer MEDICARE, BC ==
[2019-05-09 10:30] VITALS: BMI 22.1
[~2019-05-13] MED LIST: LACTATED RINGERS 1,000 ML IV SCH; LIDOCAINE 1% INJ 10MG/ML (20 ML MDV) ONE; PROPOFOL 10 MG/ML 20 ML VIAL IV ONE
[2019-05-13 07:29] VITALS: RESP 16; TEMP 97.2
--- NOTE | 2019-05-13 08:48 | P.PCN ---
Date of Procedure: 05/13/19 Description of Procedure: Brief history: Patient is a pleasant scheduled for an elective upper endoscopy as well as colonoscopy as a part of evaluation of diarrhea and colitis. Patient has had symptoms for almost a year. Colonoscopy done in evaluation was significant for polyps with random biopsies not taken at that time. Numerous stool studies and the passage of been negative. Procedure performed: Esophagogastroduodenoscopy with biopsy Colonoscopy with polypectomy and biopsy Estimated blood loss: Minimal. Preoperative diagnosis: Diarrhea, colitis Anesthesia: [facility] [place] Procedure: After informed consent was obtained from the patient was brought into the endoscopy unit and IV sedation was administered by anesthesia under continuous monitoring. Initially upper endoscopy was done. The Olympus GF 190 video endoscope was inserted into the mouth and esophagus intubated without any diffic ulty and was gradually advanced into the stomach and duodenum and carefully examined. The bulb and second part of the duodenum appeared normal, with biopsies taken to rule out celiac sprue. The scope was then withdrawn into the stomach adequately insufflated with air and upon careful examination the antrum and body, cardia and fundus appeared normal except for mild scattered erythema suggestive of mild gastritis with biopsies taken. The scope was then withdrawn into the esophagus. The GE junction was located at 42 cm to the incisors, with a 2 cm hiatal hernia noted. It appeared regular with no erythema erosions or ulcerations. The esophagus was significant for 3 cm of LA grade C esophagitis biopsies the distal esophagus taken. Patient tolerated the procedure well. At this time the patient continued to remain sedation. Initial digital rectal examination was normal. Olympus CF 190 video colonoscope was then inserted into the rectum and gradually advanced to the cecum without any difficulty. Careful examination was performed as the scope was gradually being withdrawn. The prep was excellent. The cecum, ascending colon, transverse colon, descending colon, sigmoid colon and rectum appeared normal, with biopsies of the right colon and left colon to rule out microscopic colitis. Diminutive 2 mm ascending colon polyp removed with cold forcep polypectomy. Retroflexion was performed in the rectum and no lesions were noted. Patient tolerated the procedure well. Impression: 1. LA grade C esophagitis, distal esophagus biopsied. Small hiatal hernia. Mild gastritis antrum and body biopsied. Duodenal biopsies to rule out celiac sprue. 2. Normal-appearing colon from rectum to cecum with random biopsies taken of the right and left colon to rule out microscopic colitis. Diminutive ascending colon polyp removed with cold forcep polypectomy. Recommendations: Findings of this examination were discussed with the patient as well as his friend. Okay to resume diet. Okay to resume medications. Await pathology from biopsies and polypectomy. Follow-up in gastroenterology clinic as previously scheduled. Famotidine 20 mg twice daily ordered due to esophagitis seen on EGD.
[2019-05-13 09:06] VITALS: PULSE 60
[2019-05-13 09:18] VITALS: BP 138/79
== END ==
LOC: ORWHC2ENDO 07:07
PROVIDERS: ATTEND Internal Medicine
DX: K20.0 Eosinophilic esophagitis (principal); K44.9 Diaphragmatic hernia without obstruction or gangrene; K21.9 Gastro-esophageal reflux disease without esophagitis; K29.50 Unspecified chronic gastritis without bleeding; D12.2 Benign neoplasm of ascending colon; I25.10 Atherosclerotic heart disease of native coronary artery without angina pectoris; I10 Essential (primary) hypertension; Z87.891 Personal history of nicotine dependence; E78.5 Hyperlipidemia, unspecified; I48.91 Unspecified atrial fibrillation; N42.9 Disorder of prostate, unspecified; M10.9 Gout, unspecified; Z95.1 Presence of aortocoronary bypass graft; Z97.2 Presence of dental prosthetic device (complete) (partial); Z79.01 Long term (current) use of anticoagulants; Z79.82 Long term (current) use of aspirin; Z79.899 Other long term (current) drug therapy; Z88.5 Allergy status to narcotic agent
CPT/HCPCS: 88305; 45380; 43239; J2001; J2704

== ENCOUNTER → 2019-08-04 | Outpatient (CLI) | payer MEDICARE, BC ==
[2019-08-04 07:55] LABS: Basophils # (A) 0.1 k/uL (0-0.2); Basophils % (A) 1 %; Eosinophils # (A) 0.1 k/uL (0-0.7); Eosinophils % (A) 2 %; HGB 14.5 gm/dL (13.0-17.5); Lymphocytes # (A) 1.3 k/uL (1.0-4.8); Lymphocytes % (A) 21 %; MCH 28.4 pg (25.0-35.0); MCHC 31.5 g/dL (31.0-37.0); MCV 90.2 fL (80.0-100.0); Mean Platelet Volume 8.5; Monocytes # (A) 0.5 k/uL (0-1.0); Monocytes % (A) 8 %; Neutrophils % (A) 67 %; Platelet Count 286 k/uL (150-450); RDW 15.3 % (11.5-15.5)
[2019-08-04 17:16] LABS: % Iron Saturation 19.44 (15.00-50.00); African American GFR (CKD) 72.6 (60.0-200.0); Albumin/Globulin Ratio 2.35 (1.60-3.17); Anion Gap 3.7 mmol/L (4.00-12.00); BUN/Creat Ratio 21.82 Ratio (12.00-20.00); Calcium 9.2 mg/dL (8.7-10.3); Carbon Dioxide 29.3 mmol/L (21.6-31.8); Chol/HDL Ratio 2.52; Globulin 1.7 g/dL (1.6-3.3); Non-African American GFR(CKD) 62.6 (60.0-200.0); Potassium 4.7 mmol/L (3.5-5.5); Total Bilirubin 0.7 mg/dL (0.3-1.2); Total Protein 5.7 g/dL (6.2-8.2); Uric Acid 8.8 mg/dL (3.7-8.7)
[2019-08-04 17:24] LABS: Ferritin 25.4 ng/mL (22.0-322.0)
[2019-08-05 10:21] LABS: Beef IgE <0.10 kU/L (<0.10); Beef IgE Class CLASS 0; Pork IgE Class CLASS 0
[2019-08-05 10:22] LABS: Chicken IgE Class CLASS 0; Cow's Milk IgE Class CLASS 2; Egg White IgE <0.10 kU/L (<0.10); Gluten IgE Class CLASS 0; Peanut IgE <0.10 kU/L (<0.10); Potato IgE <0.10 kU/L (<0.10); Potato IgE Class CLASS 0; Soybean IgE <0.10 kU/L (<0.10); Yeast Bakers/Brew IgE <0.10 kU/L (<0.10); Yeast Bakers/Brew IgE Class CLASS 0
== END | disposition home or self-care (01) ==
LOC: LABWHC1 06:44
PROVIDERS: ATTEND Nurse Practitioner Adult Health
DX: I12.9 Hypertensive chronic kidney disease with stage 1 through stage 4 chronic kidney disease, or unspecified chronic kidney disease (principal); N18.3 Chronic kidney disease, stage 3 (moderate); D63.1 Anemia in chronic kidney disease; D50.9 Iron deficiency anemia, unspecified; E78.2 Mixed hyperlipidemia; M10.9 Gout, unspecified
CPT/HCPCS: 36415; 80053; 80061; 82728; 83540; 83550; 84550; 85025; 86001; 86003

== ENCOUNTER 2019-10-17 19:25 | Emergency (ER) | payer MEDICARE, BC ==
[2019-10-17 19:43] VITALS: TEMP 98.5
--- NOTE | 2019-10-17 20:17 | ED ---
General Adult HPI - General Chief complaint: Shortness of Breath Stated complaint: Weakness/SOB Time Seen by Provider: 10/17/19 19:55 Source: patient Mode of arrival: ambulatory Limitations: no limitations - History of Present Illness Initial comments: Dictation was produced using [employer] dictation software. please excuse any grammatical, word or spelling errors. This patient was cared for during a federal and state declared state of emergency secondary to Covid 19 Chief Complaint: 79-year-old male presents with shortness of breath and generalized weakness. History of Present Illness: An 79-year-old male presents with shortness of breath and generalized weakness. Patient states the symptoms began today. Patient reports that yesterday he felt fine. Taking Xarelto for atrial fibrillation. States he has some mild runny nose. Denies any chest pain. No cough. Denies any constitutional symptoms. Abdominal pain. Denies any overt sick contacts. The ROS documented in this emergency department record has been reviewed and confirmed by me. Those systems with pertinent positive or negative responses have been documented in the HPI. All other systems are other negative and/or noncontributory. PHYSICAL EXAM: General Impression: Alert and oriented x3, not in acute distress HEENT: Normocephalic atraumatic, extra-ocular movements intact, pupils equal and reactive to light bilaterally, mucous membranes moist. Cardiovascular: Heart regular rate and rhythm Chest: Able to complete full sentences, no retractions, no tachypnea Abdomen: Bowel sounds present, abdomen soft, non-tender, non-distended, no organomegaly Musculoskeletal: Pulses present and equal in all extremities, no peripheral edema Motor: no focal deficits noted Neurological: CN II-XII grossly intact, no focal motor or sensory deficits noted Skin: Intact with no visualized rashes Psych: Normal affect and mood ED course: 79-year-old male presents with dyspnea and fatigue. As upon arrival are within acceptable limits. Medications reviewed Laboratory evaluation obtained. No leukocytosis. Hemoglobin stable at 11.9. This is slightly lower than patient's baseline. Coag panel is unremarkable. Metabolic panel shows elevated of 88, creatinine 1.13. Rest metabolic panel is grossly unremarkable. Chest x-ray shows no acute processes. Patient reevaluated at bedside. He appears to be well. Tolerate oral at bedside. Findings were discussed with patient. Click presentation consistent with prerenal azotemia likely secondary to dehydration. Patient is offered inpatient admission for intravenous fluid hydration. He refuses and requests to be discharge. He states that he can follow up as soon as possible with his primary care physician. Patient advised to increase his oral intake of fluids. Return parameters discussed. Patient be discharged. EKG interpretation: Ventricular rate 62, ventricular paced rhythm, QRS 164, QTc 446. No DE prolongation, no QTC prolongation, no ST or T-wave changes noted. Overall, this EKG is unremarkable - Related Data Home Medications Medication Instructions Recorded Confirmed ALPRAZolam [Xanax] 0.5 mg PO HS 08/30/15 05/09/19 Aspirin [Adult Low Dose Aspirin EC] 81 mg PO DAILY 08/30/15 05/13/19 Cholecalciferol [Vitamin D3] 1,000 unit PO HS 08/30/15 05/09/19 Fish Oil/Dha/Epa [Fish Oil 1,200 1 tab PO BID 08/30/15 05/09/19 mg Fish Oil] Multivitamins, Thera [Multivitamin] 1 tab PO DAILY 08/30/15 05/09/19 Rivaroxaban [Xarelto] 15 mg PO DAILY 08/30/15 05/13/19 Simvastatin [Zocor] 20 mg PO HS 08/30/15 05/09/19 Tamsulosin HCl [Flomax] 0.4 mg PO HS 08/30/15 05/09/19 amLODIPine [Norvasc] 10 mg PO DAILY 08/30/15 05/13/19 Furosemide [Lasix] 20 mg PO DAILY 11/30/17 05/09/19 Potassium Chloride [Klor-Con 10] 10 meq PO DAILY 11/30/17 05/09/19 Allopurinol [Zyloprim] 100 mg PO HS 05/09/19 05/09/19 Ascorbic Acid [Vitamin C] 500 mg PO DAILY 05/09/19 05/09/19 Cyanocobalamin (Vitamin B-12) 1,000 mcg PO DAILY 05/09/19 05/09/19 [Vitamin B-12] Losartan [Cozaar] 12.5 mg PO DAILY 05/09/19 05/09/19 Allergies Allergy/AdvReac Type Severity Reaction Status Date / Time morphine Allergy Nausea & Verified 10/17/19 19:43 Vomiting Review of Systems ROS Statement: Those systems with pertinent positive or pertinent negative responses have been documented in the HPI. ROS Other: All systems not noted in ROS Statement are negative. Past Medical History Past Medical History: Atrial Fibrillation, GERD/Reflux, Hyperlipidemia, Hypertension, Prostate Disorder Additional Past Medical History / Comment(s): aortic aneurysm,gout, whole repaired esophagus History of Any Multi-Drug Resistant Organisms: None Reported Past Surgical History: Coronary Bypass/CABG, Hernia Repair, Pacemaker Additional Past Surgical History / Comment(s): pacemaker, aortic aneurysm repair, 5 vessel bypass Past Anesthesia/Blood Transfusion Reactions: No Reported Reaction Type of Cardiac Device: Permanent Pacemaker Device Placement Date:: 2014 Past Psychological History: No Psychological Hx Reported Smoking Status: Former smoker Past Alcohol Use History: Occasional Past Drug Use History: None Reported - Past Family History Sister(s) Family Medical History: Cancer Additional Family Medical History / Comment(s): x 3 sisters General Exam Limitations: no limitations Course Vital Signs 10/17/19 19:41 Temperature 98.5 F Pulse Rate 83 Respiratory 20 Rate Blood Pressure 103/55 O2 Sat by Pulse 99 Oximetry Medical Decision Making - Lab Data Result diagrams: 10/17/19 20:05 10/17/19 20:05 Lab Results 10/17/19 10/17/19 10/17/19 Range/Units 20:05 20:05 20:05 WBC 9.5 (3.8-10.6) k/uL RBC 3.96 L (4.30-5.90) m/uL Hgb 11.9 L (13.0-17.5) gm/dL Hct 36.2 L (39.0-53.0) % MCV 91.4 (80.0-100.0) fL MCH 30.2 (25.0-35.0) pg MCHC 33.0 (31.0-37.0) g/dL RDW 15.3 (11.5-15.5) % Plt Count 313 (150-450) k/uL Neutrophils % 86 % Lymphocytes % 8 % Monocytes % 4 % Eosinophils % 0 % Basophils % 0 % Neutrophils # 8.2 H (1.3-7.7) k/uL Lymphocytes # 0.8 L (1.0-4.8) k/uL Monocytes # 0.4 (0-1.0) k/uL Eosinophils # 0.0 (0-0.7) k/uL Basophils # 0.0 (0-0.2) k/uL PT 13.1 H (9.0-12.0) sec INR 1.3 H (<1.2) APTT 26.3 (22.0-30.0) sec Sodium 136 L (137-145) mmol/L Potassium 4.9 (3.5-5.1) mmol/L Chloride 104 (98-107) mmol/L Carbon Dioxide 24 (22-30) mmol/L Anion Gap 8 mmol/L BUN 88 H (9-20) mg/dL Creatinine 1.13 (0.66-1.25) mg/dL Est GFR (CKD-EPI)AfAm 70 (>60 ml/min/1.73 sqM) Est GFR (CKD-EPI)NonAf 61 (>60 ml/min/1.73 sqM) Glucose 133 H (74-99) mg/dL Calcium 9.0 (8.4-10.2) mg/dL Magnesium 2.0 (1.6-2.3) mg/dL Total Bilirubin 0.3 (0.2-1.3) mg/dL AST 18 (17-59) U/L ALT 15 (4-49) U/L Alkaline Phosphatase 35 L (38-126) U/L Troponin I (0.000-0.034) ng/mL Total Protein 5.5 L (6.3-8.2) g/dL Albumin 3.3 L (3.5-5.0) g/dL 10/17/19 Range/Units 20:05 WBC (3.8-10.6) k/uL RBC (4.30-5.90) m/uL Hgb (13.0-17.5) gm/dL Hct (39.0-53.0) % MCV (80.0-100.0) fL MCH (25.0-35.0) pg MCHC (31.0-37.0) g/dL RDW (11.5-15.5) % Plt Count (150-450) k/uL Neutrophils % % Lymphocytes % % Monocytes % % Eosinophils % % Basophils % % Neutrophils # (1.3-7.7) k/uL Lymphocytes # (1.0-4.8) k/uL Monocytes # (0-1.0) k/uL Eosinophils # (0-0.7) k/uL Basophils # (0-0.2) k/uL PT (9.0-12.0) sec INR (<1.2) APTT (22.0-30.0) sec Sodium (137-145) mmol/L Potassium (3.5-5.1) mmol/L Chloride (98-107) mmol/L Carbon Dioxide (22-30) mmol/L Anion Gap mmol/L BUN (9-20) mg/dL Creatinine (0.66-1.25) mg/dL Est GFR (CKD-EPI)AfAm (>60 ml/min/1.73 sqM) Est GFR (CKD-EPI)NonAf (>60 ml/min/1.73 sqM) Glucose (74-99) mg/dL Calcium (8.4-10.2) mg/dL Magnesium (1.6-2.3) mg/dL Total Bilirubin (0.2-1.3) mg/dL AST (17-59) U/L ALT (4-49) U/L Alkaline Phosphatase (38-126) U/L Troponin I <0.012 (0.000-0.034) ng/mL Total Protein (6.3-8.2) g/dL Albumin (3.5-5.0) g/dL Disposition Clinical Impression: Azotemia Disposition: HOME SELF-CARE Condition: Good Instructions (If sedation given, give patient instructions): Dehydration (ED) Is patient prescribed a controlled substance at d/c from ED?: No Referrals: Seth Rey DO [Primary Care Provider] - 1-2 days Time of Disposition: 21:11
[2019-10-17 20:32] LABS: Basophils % (A) 0 %; Eosinophils % (A) 0 %; HCT 36.2 % (39.0-53.0); HGB 11.9 gm/dL (13.0-17.5); Lymphocytes # (A) 0.8 k/uL (1.0-4.8); Lymphocytes % (A) 8 %; MCH 30.2 pg (25.0-35.0); MCV 91.4 fL (80.0-100.0); Mean Platelet Volume 9.6; Monocytes # (A) 0.4 k/uL (0-1.0); Monocytes % (A) 4 %; Neutrophils # (A) 8.2 k/uL (1.3-7.7); Neutrophils % (A) 86 %; Platelet Count 313 k/uL (150-450); RBC 3.96 m/uL (4.30-5.90); RDW 15.3 % (11.5-15.5); WBC 9.5 k/uL (3.8-10.6)
[2019-10-17 20:38] LABS: Albumin 3.3 g/dL (3.5-5.0); Potassium 4.9 mmol/L (3.5-5.1); Total Bilirubin 0.3 mg/dL (0.2-1.3); Total Protein 5.5 g/dL (6.3-8.2)
[2019-10-17 20:41] LABS: INR 1.3 (<1.2); Partial Thromboplastin Time 26.3 sec (22.0-30.0); Prothrombin Time 13.1 sec (9.0-12.0)
--- NOTE | 2019-10-17 20:44 | XR ---
EXAMINATION TYPE: XR chest 1V portable DATE OF EXAM: 10/17/2019 COMPARISON: 08/07/2016 HISTORY: Weakness TECHNIQUE: Single view FINDINGS: There is no heart failure. There is some linear density in the left lower lobe consistent w ith scarring or subsegmental atelectasis. There is tortuous descending thoracic aorta. There is no de finite pleural effusion. There is left axillary pacemaker noted. There are chest leads. IMPRESSION: No definite active cardiopulmonary disease. No change compared to old exam.
[2019-10-17] MEDS ORDERED: SODIUM CHLORIDE 0.9% 1,000 ML IV STA (21:01)
[2019-10-17 22:43] VITALS: BP 120/62; PULSE 71; RESP 18
== END 2019-10-17 22:30 | disposition home or self-care (01) ==
LOC: EC 19:25
DX: R79.89 Other specified abnormal findings of blood chemistry (principal); R06.02 Shortness of breath; R53.1 Weakness; R09.89 Other specified symptoms and signs involving the circulatory and respiratory systems; I48.91 Unspecified atrial fibrillation; I10 Essential (primary) hypertension; E78.5 Hyperlipidemia, unspecified; Z79.82 Long term (current) use of aspirin; Z79.01 Long term (current) use of anticoagulants; Z79.899 Other long term (current) drug therapy; Z88.5 Allergy status to narcotic agent; Z87.891 Personal history of nicotine dependence; Z95.0 Presence of cardiac pacemaker; Z95.1 Presence of aortocoronary bypass graft
CPT/HCPCS: 36415; 71045; 80053; 83735; 84484; 85025; 85610; 85730; 93005; 96360; 99285

== ENCOUNTER → 2019-11-10 | Outpatient (CLI) | payer MEDICARE, BC ==
--- NOTE | 2019-11-10 08:51 | CT ---
EXAMINATION TYPE: CT angio chest DATE OF EXAM: 11/10/2019 COMPARISON: 10/21/2018 HISTORY: Follow up to thoracic aneurysm CT DLP: 470.3 mGycm CONTRAST: CTA thoracic aorta with 3-D reconstruction is performed and without and with IV Contrast, patient inj ected with 100 mL of Isovue 370. Contrast CTA of the thoracic aorta was performed from the lung apex through the upper abdomen. 3D re construction imaging obtained at a separate workstation. CT Chest: THORACIC AORTA: Ascending aorta measures up to 4.3 cm diameter versus 4.3 cm previously. There is per sistent mild to moderate calcified plaque along course of the thoracic aorta not significantly change d. Along the anterolateral aspect of the proximal descending aorta just past three-vessel takeoff the re is redemonstration of eccentric aneurysm measuring approximately 4.3 x 4.0 cm versus 4.3 x 3.9 cm previously. There is evidence of cardiomegaly. Hiatal hernia redemonstrated. Coronary artery calcific ations. Changes of prior sternotomy. Pacer device identified. LUNGS: Biapical scarring noted. The lungs are clear and free of infiltrate or atelectasis. No pulmon anand nodule or mass is detected. No pleural effusion or CT evidence of interstitial lung disease. MEDIASTINUM: No evidence for mediastinal hematoma. The heart is not enlarged. No evidence for med iastinal mass or adenopathy. HILAR STRUCTURES: No evidence for mass. No hilar adenopathy is appreciated. OTHER: No significant abnormality. IMPRESSION- 1. Stable ascending thoracic aortic aneurysm as well as eccentric aneurysm proximal descending thorac ic aorta.
== END | disposition home or self-care (01) ==
LOC: RADCTMAIN 07:34
PROVIDERS: ATTEND Thoracic Surgery (Cardiothoracic Vascular Surgery)
DX: I71.2 Thoracic aortic aneurysm, without rupture (principal)
CPT/HCPCS: 82565; 84520; 71275; 36415; Q9967

== ENCOUNTER → 2020-02-11 | Outpatient (CLI) | payer MEDICARE, BC ==
[2020-02-11 16:51] LABS: African American GFR (CKD) 54.2 (60.0-200.0); Chol/HDL Ratio 2.52; Cholesterol 116 mg/dL (0-200); LDL Cholesterol,Calculated 58.4 mg/dL (0.0-131.0); Non-African American GFR(CKD) 46.8 (60.0-200.0)
[2020-02-11 17:01] LABS: Prostate Specific Antigen <0.1 ng/mL (0.0-6.5)
== END | disposition home or self-care (01) ==
LOC: LABWHC1 07:13
PROVIDERS: ATTEND Nurse Practitioner Adult Health
DX: N40.1 Benign prostatic hyperplasia with lower urinary tract symptoms (principal); E78.2 Mixed hyperlipidemia
CPT/HCPCS: 36415; 80061; 82565; 84153; 84520

== ENCOUNTER → 2020-03-31 | Outpatient (CLI) | payer MEDICARE, BC ==
[2020-03-31 08:56] LABS: Anisocytosis Slight; Basophils # (A) 0.1 k/uL (0-0.2); Basophils % (A) 1 %; Eosinophils # (A) 0.1 k/uL (0-0.7); Eosinophils % (A) 2 %; HCT 44.2 % (39.0-53.0); HGB 13.5 gm/dL (13.0-17.5); Hypochromasia Slight; Lymphocytes # (A) 1.6 k/uL (1.0-4.8); Lymphocytes % (A) 24 %; MCH 26.5 pg (25.0-35.0); MCHC 30.7 g/dL (31.0-37.0); MCV 86.3 fL (80.0-100.0); Monocytes # (A) 0.6 k/uL (0-1.0); Monocytes % (A) 9 %; Neutrophils # (A) 4.2 k/uL (1.3-7.7); Neutrophils % (A) 63 %; Platelet Count 338 k/uL (150-450); RBC 5.12 m/uL (4.30-5.90); RDW 18.3 % (11.5-15.5); WBC 6.7 k/uL (3.8-10.6)
[2020-03-31 16:37] LABS: % Iron Saturation 27.25 (15.00-50.00); African American GFR (CKD) 72.6 (60.0-200.0); Anion Gap 8.8 mmol/L (4.00-12.00); BUN/Creat Ratio 20.91 Ratio (12.00-20.00); Calcium 9.4 mg/dL (8.7-10.3); Carbon Dioxide 29.2 mmol/L (21.6-31.8); Magnesium 2.1 mg/dL (1.5-2.4); Non-African American GFR(CKD) 62.6 (60.0-200.0); Potassium 4.7 mmol/L (3.5-5.5); Uric Acid 8.1 mg/dL (3.7-8.7)
[2020-03-31 16:45] LABS: Ferritin 23.6 ng/mL (22.0-322.0)
== END | disposition home or self-care (01) ==
LOC: LABWHC1 07:26
PROVIDERS: ATTEND Nurse Practitioner Family
DX: N25.81 Secondary hyperparathyroidism of renal origin (principal); E55.9 Vitamin D deficiency, unspecified; E79.0 Hyperuricemia without signs of inflammatory arthritis and tophaceous disease; D50.9 Iron deficiency anemia, unspecified; N18.3 Chronic kidney disease, stage 3 (moderate); D63.1 Anemia in chronic kidney disease
CPT/HCPCS: 36415; 80048; 82306; 82728; 83540; 83550; 83735; 83970; 84100; 84550; 85025

== ENCOUNTER → 2020-08-24 | Outpatient (CLI) | payer MEDICARE, BC ==
[2020-08-24 12:32] LABS: ALT 14 U/L (10-49); AST 22 U/L (14-35); African American GFR (CKD) 64.9 (60.0-200.0); Albumin/Globulin Ratio 1.54 (1.60-3.17); Alkaline Phosphatase 57 U/L (41-126); Calcium 8.9 mg/dL (8.7-10.3); Carbon Dioxide 31.3 mmol/L (21.6-31.8); Chloride 102 mmol/L (96-109); Chol/HDL Ratio 2.74; Cholesterol 118 mg/dL (0-200); Globulin 2.4 g/dL (1.6-3.3); Glucose 86 mg/dL (70-110); LDL Cholesterol,Calculated 54.8 mg/dL (0.0-131.0); Potassium 4.5 mmol/L (3.5-5.5); Prostate Specific Antigen <0.1 ng/mL (0.0-6.5); Sodium 140 mmol/L (135-145); Total Bilirubin 0.9 mg/dL (0.3-1.2); Total Protein 6.1 g/dL (6.2-8.2)
== END | disposition home or self-care (01) ==
LOC: LABWHC1 07:12
PROVIDERS: ATTEND Nurse Practitioner Adult Health
DX: E78.2 Mixed hyperlipidemia (principal); N18.9 Chronic kidney disease, unspecified; N40.1 Benign prostatic hyperplasia with lower urinary tract symptoms
CPT/HCPCS: 36415; 80053; 80061; 84153

== ENCOUNTER → 2020-10-05 | Outpatient (CLI) | payer MEDICARE, BC ==
[2020-10-05 10:29] LABS: Appearance,Urine Clear (Clear); Bilirubin,Urine Negative (Negative); Blood,Urine Negative (Negative); Color,Urine Yellow; Glucose,Urine (UA) Negative (Negative); Ketones,Urine Negative (Negative); Leukocyte Esterase,Urine Negative (Negative); Nitrite,Urine Negative (Negative); PH, Urine 6.5 (5.0-8.0); Protein,Urine Negative (Negative); Specific Gravity,Urine 1.018 (1.001-1.035); Urobilinogen,Urine <2.0 mg/dL (<2.0)
[2020-10-05 15:26] LABS: Basophils # (A) 0.05 X 10*3/uL (0.00-0.10); Basophils % (A) 0.7 %; Eosinophils # (A) 0.09 X 10*3/uL (0.04-0.35); Eosinophils % (A) 1.2 %; HCT 45.2 % (39.6-50.0); HGB 13.9 g/dL (13.0-17.0); Lymphocytes # (A) 1.39 X 10*3/uL (0.90-5.00); Lymphocytes % (A) 19.3 %; MCH 29.2 pg (27.0-32.0); MCHC 30.8 g/dL (32.0-37.0); Mean Platelet Volume 10.8 fL (9.5-12.2); Monocytes # (A) 0.67 X 10*3/uL (0.20-1.00); Monocytes % (A) 9.3 %; Neutrophils # (A) 4.99 X 10*3/uL (1.80-7.70); Neutrophils % (A) 69.1 %; Platelet Count 321 X 10*3/uL (140-440); RBC 4.76 X 10*6/uL (4.40-5.60); RDW 14.9 % (11.5-14.5); WBC 7.22 X 10*3/uL (4.50-10.00)
[2020-10-05 18:40] LABS: % Iron Saturation 20.67 (15.00-50.00); African American GFR (CKD) 64.9 (60.0-200.0); Albumin 3.9 g/dL (3.80-4.90); Anion Gap 10.3 mmol/L (4.00-12.00); BUN/Creat Ratio 20.83 Ratio (12.00-20.00); Calcium 9.2 mg/dL (8.7-10.3); Carbon Dioxide 25.7 mmol/L (21.6-31.8); Phosphorus 3.2 mg/dL (2.4-5.1); Potassium 4.8 mmol/L (3.5-5.5); Uric Acid 8.1 mg/dL (3.7-8.7)
[2020-10-05 18:47] LABS: Ferritin 39.2 ng/mL (22.0-322.0)
== END | disposition home or self-care (01) ==
LOC: LABWHC1 07:45
PROVIDERS: ATTEND Internal Medicine Nephrology
DX: E55.9 Vitamin D deficiency, unspecified (principal); D63.1 Anemia in chronic kidney disease; N18.31 Chronic kidney disease, stage 3a; N25.81 Secondary hyperparathyroidism of renal origin; N39.0 Urinary tract infection, site not specified; M10.9 Gout, unspecified; R80.9 Proteinuria, unspecified
CPT/HCPCS: 36415; 80048; 81003; 82040; 82043; 82306; 82570; 82728; 83540; 83550; 83735; 83970; 84100; 84550; 85025

== ENCOUNTER → 2020-11-04 | Outpatient (CLI) | payer MEDICARE, BC ==
--- NOTE | 2020-11-04 22:49 | CT ---
EXAMINATION TYPE: CT angio chest DATE OF EXAM: 11/04/2020 COMPARISON: 3 views HISTORY: Thoracic aortic aneurysm without rupture. CT DLP: 422.9 mGycm Automated exposure control for dose reduction was used. CONTRAST: Performed with IV Contrast, patient injected with 100 mL of Isovue 370. Images were obtained from the thoracic inlet to the diaphragm with IV contrast. There are 3-D post pr ocessed images. There is aneurysm of the thoracic aorta. Ascending aorta measures 4.5 cm. There is also aneurysm of t he inferior margin of the top of the aortic arch. This is at the region of the ductus arteriosus and measures 3.6 cm in diameter. There is some surrounding thrombus. There is normal contrast opacification of the pulmonary arteries. There are no filling defects. Heart is enlarged. There is no pericardial effusion. There are renal cortical cysts. There is some retaine d air in the esophagus. There is some irregular pleural and pulmonary linear density at the lung apic es. Thoracic spine is intact. There is no compression fracture. The upper abdominal soft tissues are intact. 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 There is fusiform aneurysm of the ascending aorta without change. No evidence of pulmonary embolism. Pleural and pulmonary scarring noted at the lung apices.
== END | disposition home or self-care (01) ==
LOC: RADCTMAIN 11:02
PROVIDERS: ATTEND Thoracic Surgery (Cardiothoracic Vascular Surgery)
DX: I71.2 Thoracic aortic aneurysm, without rupture (principal); J98.4 Other disorders of lung
CPT/HCPCS: 82565; 84520; 71275; 36415; Q9967

== ENCOUNTER → 2021-01-26 | Outpatient (CLI) | payer MEDICARE, BC ==
[2021-01-26 19:58] LABS: African American GFR (CKD) 72.1 (60.0-200.0); Albumin/Globulin Ratio 1.82 (1.60-3.17); Anion Gap 10.4 mmol/L (4.00-12.00); Calcium 8.9 mg/dL (8.7-10.3); Carbon Dioxide 26.6 mmol/L (21.6-31.8); Chol/HDL Ratio 2.44; Globulin 2.2 g/dL (1.6-3.3); Non-African American GFR(CKD) 62.2 (60.0-200.0); Potassium 4.1 mmol/L (3.5-5.5); Total Bilirubin 0.9 mg/dL (0.3-1.2); Total Protein 6.2 g/dL (6.2-8.2)
== END | disposition home or self-care (01) ==
LOC: LABWHC1 07:11
PROVIDERS: ATTEND Nurse Practitioner Adult Health
DX: E78.2 Mixed hyperlipidemia (principal); N18.9 Chronic kidney disease, unspecified
CPT/HCPCS: 36415; 80053; 80061

== ENCOUNTER → 2021-03-08 | Outpatient (CLI) | payer MEDICARE, BC ==
[2021-03-08 12:17] LABS: African American GFR (CKD) 72.1 (60.0-200.0); Non-African American GFR(CKD) 62.2 (60.0-200.0)
[2021-03-08 12:35] LABS: Prostate Specific Antigen <0.1 ng/mL (0.0-6.5)
== END | disposition home or self-care (01) ==
LOC: LABWHC1 07:42
PROVIDERS: ATTEND Urology
DX: N40.1 Benign prostatic hyperplasia with lower urinary tract symptoms (principal)
CPT/HCPCS: 36415; 82565; 84153; 84520

== ENCOUNTER → 2021-08-31 | Outpatient (CLI) | payer MEDICARE, BC ==
[2021-08-31 15:06] LABS: ALT 11 U/L (10-49); AST 17 U/L (14-35); African American GFR (CKD) 64.4 (60.0-200.0); Albumin 4.1 g/dL (3.8-4.9); Albumin/Globulin Ratio 1.71 (1.60-3.17); Alkaline Phosphatase 54 U/L (41-126); BUN/Creat Ratio 19.42 Ratio (12.00-20.00); Blood Urea Nitrogen 23.3 mg/dL (9.0-27.0); Calcium 9.6 mg/dL (8.7-10.3); Carbon Dioxide 26.8 mmol/L (20.0-27.5); Chloride 102 mmol/L (96-109); Chol/HDL Ratio 2.19 Ratio; Globulin 2.4 g/dL (1.6-3.3); Glucose 87 mg/dL (70-110); Non-African American GFR(CKD) 55.6 (60.0-200.0); Potassium 4.5 mmol/L (3.5-5.5); Sodium 140 mmol/L (135-145); Total Protein 6.5 g/dL (6.2-8.2); VLDL Calculation 14.62 mg/dL (5.00-40.00)
== END | disposition home or self-care (01) ==
LOC: LABWHC1 07:19
PROVIDERS: ATTEND Nurse Practitioner Adult Health
DX: I10 Essential (primary) hypertension (principal); E78.2 Mixed hyperlipidemia
CPT/HCPCS: 36415; 80053; 80061

== ENCOUNTER → 2021-10-18 | Outpatient (CLI) | payer MEDICARE, BC ==
[2021-10-18 11:21] LABS: Basophils # (A) 0.1 k/uL (0-0.2); Basophils % (A) 1 %; Eosinophils # (A) 0.1 k/uL (0-0.7); Eosinophils % (A) 1 %; HCT 48.8 % (39.0-53.0); HGB 15.5 gm/dL (13.0-17.5); Hypochromasia Slight; Lymphocytes # (A) 1.2 k/uL (1.0-4.8); Lymphocytes % (A) 18 %; MCH 29.8 pg (25.0-35.0); MCHC 31.7 g/dL (31.0-37.0); MCV 93.9 fL (80.0-100.0); Mean Platelet Volume 8.3; Monocytes # (A) 0.5 k/uL (0-1.0); Monocytes % (A) 7 %; Neutrophils # (A) 4.8 k/uL (1.3-7.7); Neutrophils % (A) 70 %; Platelet Count 329 k/uL (150-450); RDW 14.8 % (11.5-15.5); WBC 6.8 k/uL (3.8-10.6)
[2021-10-18 11:25] LABS: Appearance,Urine Clear (Clear); Bilirubin,Urine Negative (Negative); Blood,Urine Negative (Negative); Color,Urine Yellow; Glucose,Urine (UA) Negative (Negative); Ketones,Urine Negative (Negative); Leukocyte Esterase,Urine Negative (Negative); Nitrite,Urine Negative (Negative); Protein,Urine Negative (Negative); Specific Gravity,Urine 1.019 (1.001-1.035); Urobilinogen,Urine <2.0 mg/dL (<2.0)
[2021-10-18 11:29] LABS: ALT 15 U/L (4-49); AST 25 U/L (17-59); African American GFR (CKD) 74 (>60 ml/min/1.73 sqM); Albumin 3.9 g/dL (3.5-5.0); Albumin/Globulin Ratio 1.3; Alkaline Phosphatase 51 U/L (38-126); Anion Gap 4 mmol/L; Blood Urea Nitrogen 26 mg/dL (9-20); Calcium 9.1 mg/dL (8.4-10.2); Carbon Dioxide 31 mmol/L (22-30); Chloride 105 mmol/L (98-107); Globulin 2.9 g/dL; Glucose 97 mg/dL (74-99); Non-African American GFR(CKD) 64 (>60 ml/min/1.73 sqM); Potassium 4.9 mmol/L (3.5-5.1); Sodium 140 mmol/L (137-145); Total Bilirubin 0.8 mg/dL (0.2-1.3); Total Protein 6.8 g/dL (6.3-8.2)
[2021-10-18 11:35] LABS: Creatinine,Urine Random 126.7 mg/dL; Protein/Creatinine Ratio,Urine 0.047
--- NOTE | 2021-10-18 15:35 | CT ---
EXAMINATION TYPE: CT angio chest DATE OF EXAM: 10/18/2021 COMPARISON: CT dated 11/04/2020 HISTORY: Thoracic Aortic Aneurysm CT DLP: 397.8 mGy.cm. Automated Exposure Control for Dose Reduction was Utilized. TECHNIQUE AND CONTRAST: CTA scan of the thorax is performed without and with IV Contrast, patient injected with 100 mL of Iso amanuel 370, thoracic aortogram protocol. MIP and 3-D reconstruction Images are created on an [employer] workstation and reviewed. FINDINGS: No appreciable interval changes regarding the previously seen saccular partially thrombosed aneurysm arising from the left lateral inferior aspect of the aortic arch measuring up to 4.7 cm. The ascendin g aortic aneurysm measuring up to 4.4 cm is also stable. Extensive arterial atherosclerotic calcifications including coronary arterial calcifications. The pul monary trunk measures up to 3.1 cm. Cardiomegaly, mainly the atria, please correlate with echocardiog raphic results. No sizable pericardial effusion. 3 mm nodule in the left lung base, stable. Unchanged bilateral apical pulmonary fibrotic changes/scar ring. Bilateral anterior basal pulmonary atelectasis, stable. Patent trachea and main bronchi. No ple ural effusion. No pathologically enlarged lymph nodes in the chest. Hiatal hernia containing portion of the stomach. Bilateral renal cysts without gross suspicious feature. Small pancreas. Sternotomy sutures. IMPRESSION: Stable known ascending thoracic aortic aneurysm as well as the saccular aneurysm arising from the aor tic arch as detailed above. Other findings as described above.
[2021-10-18 19:48] LABS: % Iron Saturation 16.83 (15.00-50.00); Ferritin 37.3 ng/mL (22.0-322.0); Iron 66 ug/dL (65-175); Total Iron Binding Capacity 389 ug/dL (228-460)
== END | disposition home or self-care (01) ==
LOC: RADCTMAIN 10:10
PROVIDERS: ATTEND Thoracic Surgery (Cardiothoracic Vascular Surgery)
DX: I71.2 Thoracic aortic aneurysm, without rupture (principal); R91.1 Solitary pulmonary nodule; J98.11 Atelectasis; N28.1 Cyst of kidney, acquired; J98.4 Other disorders of lung; J84.10 Pulmonary fibrosis, unspecified; I25.10 Atherosclerotic heart disease of native coronary artery without angina pectoris
CPT/HCPCS: 82570; 80053; 84156; 82728; 83540; 83550; 84100; 84550; 85025; 81003; 82306; 83970; 71275; Q9967

== ENCOUNTER → 2022-02-16 | Outpatient (CLI) | payer MEDICARE, BC ==
[2022-02-16 10:48] LABS: ALT 13 U/L (10-49); AST 19 U/L (14-35); Chol/HDL Ratio 2.32 Ratio; LDL Cholesterol,Calculated 50.4 mg/dL (0.0-131.0)
== END | disposition home or self-care (01) ==
LOC: LABWHC1 07:34
PROVIDERS: ATTEND Nurse Practitioner Adult Health
DX: E78.2 Mixed hyperlipidemia (principal)
CPT/HCPCS: 36415; 80061; 84450; 84460

== ENCOUNTER → 2022-03-14 | Outpatient (CLI) | payer MEDICARE, BC ==
[2022-03-14 10:53] LABS: African American GFR (CKD) 58.5 (60.0-200.0); Non-African American GFR(CKD) 50.5 (60.0-200.0)
== END | disposition home or self-care (01) ==
LOC: LABWHC1 07:17
PROVIDERS: ATTEND Urology
DX: N40.1 Benign prostatic hyperplasia with lower urinary tract symptoms (principal)
CPT/HCPCS: 36415; 82565; 84153; 84520

== ENCOUNTER → 2022-04-18 | Outpatient (CLI) | payer MEDICARE, BC ==
--- NOTE | 2022-04-18 14:38 | CT ---
EXAMINATION TYPE: CT chest wo con DATE OF EXAM: 04/18/2022 COMPARISON: CT chest 10/18/2021 HISTORY: Pleural Effusion CT DLP: 389 mGycm. Automated Exposure Control for Dose Reduction was Utilized. TECHNIQUE: CT scan of the thorax is performed without IV contrast. FINDINGS: Lack of intravenous contrast could compromise sensitivity. LUNGS: The lungs show some probable scarring in the right upper lobe, at the apices. There is been in terval development of a left pleural effusion and associated atelectasis. The ulcer or aneurysm exten ding from the transverse aorta is again seen with calcified wall. There is no pleural effusion or p neumothorax seen. The tracheobronchial tree is patent. MEDIASTINUM: Lack of IV contrast is noted to limit evaluation for mediastinal and especially hilar ad enopathy. There are no definitive greater than 1 cm hilar or mediastinal lymph nodes. No cardiomega ly or pericardial effusion is seen. The heart is enlarged. There are leads in the right atrium and ve ntricle. Coronary artery calcifications are noted. There is calcification at the root of aorta. Hiata l hernia is present, thickening of the stomach wall could be due to lack of distention. OTHER: Cortical cysts are associated with the kidneys. IMPRESSION: Interval development of a left pleural effusion with probable associated atelectasis, cor relate to exclude pneumonia
== END | disposition home or self-care (01) ==
LOC: RADCTMAIN 13:14
PROVIDERS: ATTEND Family Medicine
DX: J90 Pleural effusion, not elsewhere classified (principal)
CPT/HCPCS: 71250

== ENCOUNTER → 2022-05-01 | Outpatient (CLI) | payer MEDICARE, BC ==
--- NOTE | 2022-05-02 10:12 | US ---
EXAMINATION TYPE: US chest DATE OF EXAM: 05/01/2022 COMPARISON: NONE CLINICAL HISTORY: J90 PLEURAL EFFUSION. TECHNIQUE: Targeted ultrasound of the posterior lower EXAM MEASUREMENTS: Left Pleural Effusion pocket size: 9.9 cm Left skin surface to fluid distance: 2.1 cm Left side marked for possible thoracentesis outside the dept. Pulmonologists are able to review the images in the patient?s EMR. IMPRESSIONS: 1. Left pleural effusion
== END | disposition home or self-care (01) ==
LOC: RADUSWWP 16:05
PROVIDERS: ATTEND Internal Medicine
DX: J90 Pleural effusion, not elsewhere classified (principal)
CPT/HCPCS: 76604

== ENCOUNTER 2022-05-08 11:02 | Day surgery (SDC) | payer MEDICARE, BC ==
[~2022-05-08 11:02] MED LIST changes: -LACTATED RINGERS 1,000 ML IV SCH; -LIDOCAINE 1% INJ 10MG/ML (20 ML MDV) ONE; -PROPOFOL 10 MG/ML 20 ML VIAL IV ONE; +SODIUM CHLORIDE 0.9% 500 ML 500 ML in EMPTY BAG 1 BAG IV PRN
[2022-05-08 12:06] VITALS: BP 125/76; RESP 15; TEMP 98.8
[2022-05-08 12:14] VITALS: PULSE 61
--- NOTE | 2022-05-08 13:12 | XR ---
EXAMINATION TYPE: XR chest 1V portable DATE OF EXAM: 05/08/2022 COMPARISON: 10/17/2019 HISTORY: Postthoracentesis TECHNIQUE: Single frontal view of the chest is obtained. FINDINGS: A small left pleural effusion and basilar consolidation. No sizable pneumothorax. Hyperinf lation suggests COPD there is postsurgical change with cardiac device. Pleural-based thickening and c alcifications noted correlate for previous asbestosis exposure. No interstitial edema. Heart enlarged . There is ectasia of the left periaortic line. IMPRESSION: 1. No pneumothorax. Small left-sided pleural effusion and consolidation. 2. Findings are compatible with a descending thoracic aortic aneurysm. 3. COPD and cardiomegaly
--- NOTE | 2022-05-08 13:32 | OP ---
OPERATIVE REPORT PROCEDURE PERFORMED: Left-sided thoracentesis. PREOPERATIVE DIAGNOSIS: Left pleural effusion, suspect hemothorax secondary to recent fall. POSTOPERATIVE DIAGNOSIS: Left pleural effusion, suspect hemothorax secondary to recent fall. ANESTHESIA USED: 2 mL of 1% lidocaine. DESCRIPTION OF PROCEDURE: The patient was placed in a sitting upright position. The area below the left clavicle was prepared in a sterile fashion, and drapes were applied. The area was earlier localized by ultrasound guidance and correlated to the area of the tip of the scapula and 8th or 9th intercostal space. The area was locally anesthetized using lidocaine. Then, a small tiny 26-gauge needle was inserted at the same site, which was again the 8th intercostal space and tip of the scapula and advanced into the pleural space until the fluid was localized, and the fluid was noted to be bloody. Then, a small tiny incision was made, and the thoracentesis catheter and needle were used. Needle was inserted at the same site, advanced into the pleural space, and some of the fluid was localized with the needle. Then, the catheter was advanced over the needle, and the needle was pulled out of the pleural space. Freely flowing fluid, serosanguineous, removed from the left pleural space, and the fluid was drained easily. A total of 500 mL of blood was drained from the left pleural space. Fluid was sent for different diagnostic studies. Procedure was well tolerated. No immediate complications. Chest x-ray ordered postoperatively. MMODL / IJN: [id number] /
[2022-05-08 21:27] LABS: Appearance,BF Bloody
[2022-05-08 22:29] LABS: Glucose, BF Source Pleural Fluid; Glucose, Body Fluid 83 mg/dL; LDH, Body Fluid Source Pleural Fluid; T. Protein, Body Fluid Source Pleural Fluid; Total Protein, Body Fluid 4130 mg/dL
== END 2022-05-08 14:46 | disposition home or self-care (01) ==
LOC: PROCWHC3 11:02
PROVIDERS: ATTEND Internal Medicine
DX: J90 Pleural effusion, not elsewhere classified (principal); D72.10 Eosinophilia, unspecified
CPT/HCPCS: 32554; 71045; 82945; 83615; 84157; 87070; 87075; 87205; 88108; 88305; 89050

== ENCOUNTER → 2022-05-08 | Outpatient (CLI) | payer MEDICARE, BC ==
--- NOTE | 2022-05-08 11:07 | US ---
EXAMINATION TYPE: US chest DATE OF EXAM: 05/08/2022 COMPARISON: NONE CLINICAL HISTORY: J90 PLEURAL EFFUSION. TECHNIQUE: Targeted ultrasound of the posterior lower left hemithorax EXAM MEASUREMENTS: Left Pleural Effusion pocket size: 8.8 cm Left skin surface to fluid distance: 1.9 cm Left side marked for possible thoracentesis outside the dept. Pulmonologists are able to review the images in the patient?s EMR. IMPRESSIONS: Left pleural effusion.
== END | disposition home or self-care (01) ==
LOC: RADUSWWP 10:39
PROVIDERS: ATTEND Internal Medicine
DX: J90 Pleural effusion, not elsewhere classified (principal)
CPT/HCPCS: 76604

== ENCOUNTER → 2022-11-09 | Outpatient (CLI) | payer MEDICARE, BC ==
[2022-11-09 11:41] LABS: African American GFR (CKD) 56.5 (60.0-200.0); Anion Gap 8.9 mmol/L (10.00-18.00); BUN/Creat Ratio 13.83 Ratio (12.00-20.00); Blood Urea Nitrogen 18.4 mg/dL (9.0-27.0); Calcium 9.4 mg/dL (8.7-10.3); Carbon Dioxide 28.9 mmol/L (20.0-27.5); Non-African American GFR(CKD) 48.7 (60.0-200.0); Potassium 4.2 mmol/L (3.5-5.5)
== END | disposition home or self-care (01) ==
LOC: LABWHC1 06:59
PROVIDERS: ATTEND Nurse Practitioner Adult Health
DX: R06.02 Shortness of breath (principal); R60.0 Localized edema
CPT/HCPCS: 36415; 80048; 83880

== ENCOUNTER → 2023-03-19 | Outpatient (CLI) | payer MEDICARE, BC ==
[2023-03-19 21:30] LABS: Basophils # (A) 0.08 X 10*3/uL (0.00-0.10); Basophils % (A) 0.9 %; Eosinophils # (A) 0.09 X 10*3/uL (0.04-0.35); HCT 47.2 % (39.6-50.0); HGB 14.8 d/dL (13.0-17.0); Lymphocytes # (A) 1.04 X 10*3/uL (0.90-5.00); Lymphocytes % (A) 11.5 %; MCH 26.4 pg (27.0-32.0); MCHC 31.4 d/dL (32.0-37.0); MCV 84.3 FL (80.0-97.0); Mean Platelet Volume 10.3 FL (9.5-12.2); Monocytes # (A) 0.88 X 10*3/uL (0.20-1.00); Monocytes % (A) 9.7 %; NRBC Per 100 WBC 0 X 10*3/uL (0.00-0.01); Neutrophils # (A) 6.88 X 10*3/uL (1.80-7.70); Neutrophils % (A) 76.2 %; Platelet Count 316 X 10*3/uL (140-440); RDW 16.3 % (11.5-14.5); WBC 9.03 X 10*3/uL (4.50-10.00)
[2023-03-19 22:24] LABS: % Iron Saturation 9.76 (15.00-50.00); Albumin 4.4 d/dL (3.8-4.9); BUN/Creat Ratio 17.57 Ratio (12.00-20.00); Blood Urea Nitrogen 24.6 mg/dL (9.0-27.0); Calcium 9.8 mg/dL (8.7-10.3); Carbon Dioxide 26.9 mmol/L (21.6-31.8); Chloride 102 mmol/L (96-109); Ferritin 29.6 ng/mL (22.0-322.0); Glucose 100 mg/dL (70-110); Iron 37 UG/DL (65-175); Magnesium 2.2 mg/dL (1.5-2.4); Phosphorus 3.7 mg/dL (2.4-5.1); Potassium 4.5 mmol/L (3.5-5.5); Sodium 141 mmol/L (135-145); Total Iron Binding Capacity 379 UG/DL (228-460); Uric Acid 8.7 mg/dL (3.7-8.7)
[2023-03-19 22:39] LABS: Appearance,Urine Clear (Clear); Bilirubin,Urine Negative (Negative); Blood,Urine Negative (Negative); Color,Urine Yellow (Yellow); Ketones,Urine Trace (Negative); Nitrite,Urine Negative (Negative); Specific Gravity,Urine 1.014 (1.001-1.030); Urobilinogen,Urine 0.2 E.U./DL
[2023-03-20 01:32] LABS: Microalbumin Creatinine Ratio <9 mg/g Cr (0-30)
== END | disposition home or self-care (01) ==
LOC: LABWHC1 13:33
PROVIDERS: ATTEND Internal Medicine Nephrology
DX: N18.31 Chronic kidney disease, stage 3a (principal); D63.1 Anemia in chronic kidney disease; E55.9 Vitamin D deficiency, unspecified; M10.9 Gout, unspecified; N39.0 Urinary tract infection, site not specified; E21.3 Hyperparathyroidism, unspecified; R80.9 Proteinuria, unspecified
CPT/HCPCS: 36415; 80048; 81003; 82040; 82043; 82306; 82570; 82728; 83540; 83550; 83735; 83970; 84100; 84550; 85025

== ENCOUNTER → 2023-05-02 | Outpatient (CLI) | payer MEDICARE, BC ==
[2023-05-02 11:14] LABS: ALT 15 U/L (10-49); AST 20 U/L (14-35); Albumin 4.2 d/dL (3.8-4.9); Albumin/Globulin Ratio 1.68 Ratio (1.60-3.17); Alkaline Phosphatase 68 U/L (41-126); BUN/Creat Ratio 19.23 Ratio (12.00-20.00); Calcium 9.8 mg/dL (8.7-10.3); Chloride 104 mmol/L (96-109); Chol/HDL Ratio 2.38 Ratio; Globulin 2.5 d/dL (1.6-3.3); Glucose 95 mg/dL (70-110); LDL Cholesterol,Calculated 46.7 mg/dL (0.0-131.0); Potassium 4.9 mmol/L (3.5-5.5); Sodium 142 mmol/L (135-145); Total Bilirubin 0.7 mg/dL (0.3-1.2); Total Protein 6.7 d/dL (6.2-8.2); VLDL Calculation 14.16 mg/dL (5.00-40.00)
== END | disposition home or self-care (01) ==
LOC: LABWHC1 07:24
PROVIDERS: ATTEND Internal Medicine Interventional Cardiology
DX: E78.2 Mixed hyperlipidemia (principal)
CPT/HCPCS: 36415; 80053; 80061

== ENCOUNTER → 2023-05-16 | Outpatient (CLI) | payer MEDICARE, BC ==
[2023-05-16 16:21] LABS: BUN/Creat Ratio 19.08 Ratio (12.00-20.00); Blood Urea Nitrogen 22.9 mg/dL (9.0-27.0); Calcium 9.7 mg/dL (8.7-10.3); Carbon Dioxide 27.6 mmol/L (21.6-31.8); Chloride 104 mmol/L (96-109); Glucose 91 mg/dL (70-110); Potassium 4.7 mmol/L (3.5-5.5); Sodium 141 mmol/L (135-145)
== END | disposition home or self-care (01) ==
LOC: LABWHC1 08:07
PROVIDERS: ATTEND Nurse Practitioner Family
DX: N18.31 Chronic kidney disease, stage 3a (principal)
CPT/HCPCS: 36415; 80048

== ENCOUNTER → 2023-07-10 | Outpatient (CLI) | payer MEDICARE, BC ==
[2023-07-10 15:23] LABS: HCT 48.7 % (39.6-50.0); HGB 14.5 g/dL (13.0-17.0); MCH 25.2 pg (27.0-32.0); MCHC 29.8 g/dL (32.0-37.0); MCV 84.5 FL (80.0-97.0); Mean Platelet Volume 10.6 FL (9.5-12.2); NRBC Per 100 WBC 0 X 10*3/uL (0.00-0.01); Platelet Count 312 X 10*3/uL (140-440); RBC 5.76 X 10*6/uL (4.40-5.60); RDW 18.2 % (11.5-14.5)
[2023-07-10 15:26] LABS: Blood Urea Nitrogen 20.1 mg/dL (9.0-27.0); Carbon Dioxide 26.2 mmol/L (21.6-31.8); Chloride 104 mmol/L (96-109); Potassium 4.6 mmol/L (3.5-5.5); Sodium 141 mmol/L (135-145)
== END | disposition home or self-care (01) ==
LOC: LABPAT 10:01
PROVIDERS: ATTEND Internal Medicine
DX: Z01.812 Encounter for preprocedural laboratory examination (principal); I48.21 Permanent atrial fibrillation; I49.5 Sick sinus syndrome
CPT/HCPCS: 36415; 80051; 82565; 84520; 85027

== ENCOUNTER → 2023-07-19 | Day surgery (SDC) | payer MEDICARE, BC ==
[2023-07-13 13:05] VITALS: BMI 22.6
[~2023-07-19] MED LIST changes: +ACETAMINOPHEN TAB 325 MG TAB PO PRN; +LIDOCAINE 1% INJ 10MG/ML (20 ML MDV) ONE; +LIDOCAINE 1% INJ 10MG/ML (20 ML MDV) SQ ONE; +SODIUM CHLORIDE 0.9% 1,000 ML IV SCH; -SODIUM CHLORIDE 0.9% 500 ML 500 ML in EMPTY BAG 1 BAG IV PRN; +ceFAZolin 1 GM in SODIUM CHLORIDE 0.9% IRRIG BTL 250 ML IRRIGATION PRN; +fentaNYL (PF) 50 MCG/ML 2 ML AMP ONE
[2023-07-19 10:58] VITALS: TEMP 97.7
[2023-07-19] MEDS: fentaNYL (PF) 50 MCG/1 ML VIAL IVP ONE ×2 (13:27→13:34)
[2023-07-19] MEDS: MIDAZOLAM 2 MG/2 ML VIAL IVP ONE ×2 (13:27→13:34)
--- NOTE | 2023-07-19 14:02 | P.OP ---
Description of Procedure: CARDIOLOGY PROCEDURE NOTE Hemodialysis Rn: Dr. Efren Pichardo Procedure performed: Dual chamber permanent pacemaker generator change Site: Left subclavian Indications: Sick Sinus Syndrome Complications: None Blood Loss: Minimal Description of Procedure: After the risks, benefits, and alternatives of the above-mentioned procedure was explained in detail with the patient, informed consent was obtained. The patient was taken to the cardiac catheterization suite where the left subclavian area was sterily prepped and draped in the usual fashion. Patient was given IV Versed and fentanyl for sedation. The skin over the existing pulse generator was infiltrated with lidocaine. An incision was made in the skin and was deepe murray until the pectoral fascia was exposed. Hemostasis was obtained. The existing pulse generator was pulled out of the pocket. The leads were disconnected and were checked for thresholds. The existing leads were then inserted into the appropriate position into the new generator. They were then secured with the setscrew provided. The leads and generator were inserted into the pocket with the leads posterior. The subcutaneous tissue was approximated utilizing #2.0 and 3.0 vicryl in an interrupted stitch fashion. The dermal layer was approximated utilizing #4.0 vicryl. The area was cleansed with sterile saline and dried. A sterile 4x4 dressing was applied and the patient was transferred to the post catheterization holding area in stable and satisfactory condition. The patient tolerated the procedure well. Generator Data Cytogeneticist: [employer] Brand: [id number] Regi XT [facility] Model #: [id number] Serial#: [id number] Right Atrial Bipolar Lead Data: Type: Active fixation lead Cytogeneticist: [employer] Model#: 5076-45 Serial Number: [id number] Right Ventricular Bipolar Lead Data: Type: Active fixation lead Cytogeneticist: [employer] Model #: 5076-58 Serial #: [id number] Stimulation Thresholds: Right atrial bipolar lead pacing and sensing thresholds Voltage: Afib Impedance: 399 ohms P-wave sensin.0 mV Right Ventricular bipolar lead pacing and sensing thresholds Pulse Width: 0.4ms Voltage: 1.0 volts Impedance: 399 ohms R-wave sensing: Dependent Parameter Setting: Pacing mode is VVIR Lower rate 60 bpm Upper rate 120 bpm Impressions: 1. Successful generator change of a dual chamber permanent pacemaker in the left pectoral site. Plan: 1. Routine post procedure care will be instituted as well as outpatient follow- up surveillance.
[2023-07-19 16:58] VITALS: PULSE 60; RESP 16
[2023-07-19 17:20] VITALS: BP 122/58
== END ==
LOC: CATHEP 09:52
PROVIDERS: ATTEND Internal Medicine
DX: I49.5 Sick sinus syndrome (principal); I48.21 Permanent atrial fibrillation; I10 Essential (primary) hypertension; E78.5 Hyperlipidemia, unspecified; E03.9 Hypothyroidism, unspecified; Z86.73 Personal history of transient ischemic attack (TIA), and cerebral infarction without residual deficits; Z79.02 Long term (current) use of antithrombotics/antiplatelets; Z79.01 Long term (current) use of anticoagulants; Z79.890 Hormone replacement therapy; Z79.899 Other long term (current) drug therapy
CPT/HCPCS: 33228; C1785; J2250; J0690; J2001; J3010

== ENCOUNTER → 2023-09-12 | Outpatient (CLI) | payer MEDICARE, BC ==
[2023-09-12 11:14] LABS: Basophils # (A) 0.08 X 10*3/uL (0.00-0.10); Basophils % (A) 1.4 %; Eosinophils # (A) 0.11 X 10*3/uL (0.04-0.35); Eosinophils % (A) 1.9 %; HCT 48.4 % (39.6-50.0); HGB 14.8 g/dL (13.0-17.0); Lymphocytes # (A) 1.07 X 10*3/uL (0.90-5.00); Lymphocytes % (A) 18.7 %; MCH 24.9 pg (27.0-32.0); MCHC 30.6 g/dL (32.0-37.0); MCV 81.5 FL (80.0-97.0); Mean Platelet Volume 10.1 FL (9.5-12.2); Monocytes # (A) 0.59 X 10*3/uL (0.20-1.00); Monocytes % (A) 10.3 %; NRBC Per 100 WBC 0 X 10*3/uL (0.00-0.01); Neutrophils # (A) 3.86 X 10*3/uL (1.80-7.70); Neutrophils % (A) 67.5 %; Platelet Count 282 X 10*3/uL (140-440); RBC 5.94 X 10*6/uL (4.40-5.60); RDW 19.5 % (11.5-14.5); WBC 5.72 X 10*3/uL (4.50-10.00)
[2023-09-12 12:18] LABS: % Iron Saturation 13.22 (15.00-50.00); BUN/Creat Ratio 19.23 Ratio (12.00-20.00); Calcium 9.3 mg/dL (8.7-10.3); Carbon Dioxide 26.7 mmol/L (21.6-31.8); Chloride 105 mmol/L (96-109); Ferritin 24.4 ng/mL (22.0-322.0); Glucose 94 mg/dL (70-110); Iron 55 UG/DL (65-175); Sodium 142 mmol/L (135-145); Total Iron Binding Capacity 416 UG/DL (228-460); Uric Acid 7.9 mg/dL (3.7-8.7)
== END | disposition home or self-care (01) ==
LOC: LABWHC1 08:02
PROVIDERS: ATTEND Nurse Practitioner Family
DX: N18.31 Chronic kidney disease, stage 3a (principal); D63.1 Anemia in chronic kidney disease; M10.9 Gout, unspecified; R80.9 Proteinuria, unspecified
CPT/HCPCS: 36415; 80048; 82043; 82570; 82728; 83540; 83550; 84550; 85025

== ENCOUNTER → 2023-10-09 | Outpatient (CLI) | payer MEDICARE, BC ==
[2023-10-09 16:39] LABS: BUN/Creat Ratio 18.08 Ratio (12.00-20.00); Blood Urea Nitrogen 21.7 mg/dL (9.0-27.0); Calcium 9.6 mg/dL (8.7-10.3); Carbon Dioxide 27.2 mmol/L (21.6-31.8); Chloride 104 mmol/L (96-109); Glucose 91 mg/dL (70-110); Potassium 4.7 mmol/L (3.5-5.5); Sodium 142 mmol/L (135-145)
[2023-10-09 16:42] LABS: Prostate Specific Antigen <0.01 ng/mL (0.000-6.500)
== END | disposition home or self-care (01) ==
LOC: LABWHC1 07:58
PROVIDERS: ATTEND Urology
DX: N40.1 Benign prostatic hyperplasia with lower urinary tract symptoms (principal)
CPT/HCPCS: 36415; 80048; 84153

== ENCOUNTER → 2023-11-02 | Outpatient (CLI) | payer MEDICARE, BC ==
[2023-11-02 09:34] LABS: African American GFR (CKD) 69 (>60 ml/min/1.73 sqM); Blood Urea Nitrogen 17 mg/dL (9-20); Non-African American GFR(CKD) 60 (>60 ml/min/1.73 sqM)
--- NOTE | 2023-11-02 12:42 | CT ---
CTA CHEST EXAMINATION TYPE: CT angio chest DATE OF EXAM: 11/02/2023 INDICATION: Thoracic aortic aneurysm w/o rupture CT DLP: 639.30 mGycm, Automated exposure control for dose reduction was used. CONTRAST: Patient injected with 80 mL of Isovue 370. COMPARISON: 04/18/2022 TECHNIQUE: CT of the chest is performed on a spiral scan at 2 mm thick sections. Study is performed with intravenous contrast timed for evaluation for aortic aneurysm. This will limit additional porti ons of the evaluation. 3-D MIP images reconstructed by the technologist are reviewed on the computer in the coronal and sagittal planes. FINDINGS: There appears to be chronic scarring bilateral lung apices present previously. Posterior-lateral left lung base infiltrate may be present. No mediastinal or hilar adenopathy enlarged by CT criteria is evident. The ascending aorta diameter at the level of the main pulmonary artery is 4.1 cm. The main pulmonary artery diameter at the bifurcation is 3.3 cm. Coronary artery calcifications present There is a large alfonso aneurysm of the posterior inferior aortic arch with an AP diameter of 4.0 cm. This appears stable from comparison. Limited CT sections were through the upper abdomen. Esophagus is air and fluid filled. Upper abdomen appears unremarkable. IMPRESSION: 1. Stable very aneurysm posterior inferior aortic arch. 2. Ascending thoracic aortic aneurysm 4.1 cm.
== END | disposition home or self-care (01) ==
LOC: RADCTMAIN 08:58
PROVIDERS: ATTEND Internal Medicine
DX: I71.20 Thoracic aortic aneurysm, without rupture, unspecified (principal); I71.22 Aneurysm of the aortic arch, without rupture; I71.21 Aneurysm of the ascending aorta, without rupture
CPT/HCPCS: 82565; 84520; 71275; Q9967

== ENCOUNTER → 2023-12-05 | Outpatient (CLI) | payer MEDICARE, BC ==
[2023-12-05 10:44] LABS: ALT 25 U/L (10-49); AST 21 U/L (14-35); Albumin 4.3 g/dL (3.8-4.9); Albumin/Globulin Ratio 2.05 Ratio (1.60-3.17); Alkaline Phosphatase 56 U/L (41-126); BUN/Creat Ratio 20.79 Ratio (12.00-20.00); Blood Urea Nitrogen 29.1 mg/dL (9.0-27.0); Calcium 9.4 mg/dL (8.7-10.3); Carbon Dioxide 29.5 mmol/L (21.6-31.8); Chloride 99 mmol/L (96-109); Chol/HDL Ratio 1.93 Ratio; Globulin 2.1 g/dL (1.6-3.3); Glucose 86 mg/dL (70-110); LDL Cholesterol,Calculated 51.3 mg/dL (0.0-131.0); Potassium 4.9 mmol/L (3.5-5.5); Sodium 139 mmol/L (135-145); Total Protein 6.4 g/dL (6.2-8.2); VLDL Calculation 13.66 mg/dL (5.00-40.00)
[2023-12-06 04:44] LABS: NT-Pro-B-Type Natriuretic Pept 1205 pg/mL (0-450)
== END | disposition home or self-care (01) ==
LOC: LABWHC1 07:18
PROVIDERS: ATTEND Internal Medicine Interventional Cardiology
DX: E78.2 Mixed hyperlipidemia (principal); R06.09 Other forms of dyspnea
CPT/HCPCS: 36415; 80053; 80061; 83880

== ENCOUNTER → 2024-03-14 | Outpatient (CLI) | payer MEDICARE, BC ==
[2024-03-14 15:11] LABS: HCT 50.6 % (39.6-50.0); HGB 15.5 g/dL (13.0-17.0); MCH 25.3 pg (27.0-32.0); MCHC 30.6 g/dL (32.0-37.0); MCV 82.5 FL (80.0-97.0); Mean Platelet Volume 10.3 FL (9.5-12.2); NRBC Per 100 WBC 0 X 10*3/uL (0.00-0.01); Platelet Count 334 X 10*3/uL (140-440); RBC 6.13 X 10*6/uL (4.40-5.60); RDW 19.2 % (11.5-14.5)
[2024-03-14 15:33] LABS: Blood Urea Nitrogen 18.2 mg/dL (9.0-27.0); Glucose 102 mg/dL (70-110)
[2024-03-14 15:34] LABS: ALT 11 U/L (10-49); AST 19 U/L (14-35); Albumin 4.4 g/dL (3.8-4.9); Albumin/Globulin Ratio 1.63 Ratio (1.60-3.17); Alkaline Phosphatase 77 U/L (41-126); Calcium 9.5 mg/dL (8.7-10.3); Carbon Dioxide 25.1 mmol/L (21.6-31.8); Chloride 103 mmol/L (96-109); Globulin 2.7 g/dL (1.6-3.3); Potassium 4.1 mmol/L (3.5-5.5); Sodium 142 mmol/L (135-145); Total Bilirubin 1.1 mg/dL (0.3-1.2); Total Protein 7.1 g/dL (6.2-8.2)
[2024-03-14 15:38] LABS: NT-Pro-B-Type Natriuretic Pept 5633 pg/mL (0-450)
== END | disposition home or self-care (01) ==
LOC: LABWHC1 09:57
PROVIDERS: ATTEND Internal Medicine Interventional Cardiology
DX: I48.21 Permanent atrial fibrillation (principal); R06.02 Shortness of breath
CPT/HCPCS: 36415; 80053; 83880; 85027

== ENCOUNTER 2024-05-31 09:00 | Inpatient (IN) | payer MEDICARE, BC ==
[2024-05-31 09:30] LABS: Anisocytosis Slight; Basophils % (A) 1 %; Eosinophils # (A) 0.2 k/uL (0-0.7); Eosinophils % (A) 2 %; HCT 45.6 % (39.0-53.0); HGB 13.8 gm/dL (13.0-17.5); Hypochromasia Marked; Lymphocytes # (A) 1.3 k/uL (1.0-4.8); Lymphocytes % (A) 14 %; MCH 24.7 pg (25.0-35.0); MCHC 30.3 g/dL (31.0-37.0); MCV 81.5 fL (80.0-100.0); Mean Platelet Volume 8.3; Monocytes # (A) 0.5 k/uL (0-1.0); Monocytes % (A) 5 %; Neutrophils # (A) 6.8 k/uL (1.3-7.7); Neutrophils % (A) 76 %; Platelet Count 324 k/uL (150-450); RBC 5.59 m/uL (4.30-5.90); RDW 16.4 % (11.5-15.5)
[2024-05-31 09:39] LABS: INR 1.2 (<1.2)
--- NOTE | 2024-05-31 09:41 | XR ---
2 view chest HISTORY: Difficulty breathing COMPARISON: 04/29/2024 TECHNIQUE: PA and lateral views chest obtained. FINDINGS: There is a 2-lead cardiac pacemaker unchanged in position. There is moderate to marked cardiomegaly. There is mild pulmonary vascular congestion or interstitial edema. There are small bilateral pleural effusions. There is no pneumothorax. Postoperative changes of prior CABG surgery IMPRESSION: Findings most consistent with mild to moderate CHF. [facility], Workstation: SKYE 05/31/2024 9:38 AM
--- NOTE | 2024-05-31 09:43 | ED ---
SOB HPI - General Chief Complaint: Shortness of Breath Stated Complaint: MEG Time Seen by Provider: 05/31/24 09:02 Source: patient, family, EMS, RN notes reviewed Mode of arrival: EMS Limitations: no limitations - History of Present Illness Initial Comments: This is an 83-year-old male who presents to the emergency department for shortness of breath. States that it started a couple of days ago. He has a history of CHF and COPD. He has been using breathing treatments at home with some improvement. Denies any chest pain or coughing. He denies any swelling in his extremities. EMS gave the patient a total of 2 nitroglycerin, 50 mg of prednisone, an albuterol breathing treatment, and then a DuoNeb breathing treatment. Patient states that this did seem to help. MD Complaint: shortness of breath - Related Data Home Medications Medication Instructions Recorded Confirmed ALPRAZolam [Xanax] 0.5 mg PO HS 08/30/15 05/31/24 Multivitamins, Thera [Multivitamin] 1 tab PO DAILY 08/30/15 05/31/24 Furosemide [Lasix] 40 mg PO DAILY 11/30/17 05/31/24 Losartan Potassium [Cozaar] 12.5 mg PO DAILY 10/17/19 05/31/24 Rivaroxaban [Xarelto] 15 mg PO DAILY 10/17/19 05/31/24 Tamsulosin [Flomax] 0.4 mg PO HS 05/08/22 05/31/24 Aspirin EC [Ecotrin Low Dose] 81 mg PO DAILY 05/31/24 05/31/24 Atorvastatin [Lipitor] 40 mg PO W/SUPPER 05/31/24 05/31/24 Clopidogrel [Plavix] 75 mg PO DAILY 05/31/24 05/31/24 Ipratropium-Albuterol Nebulize 3 ml INHALATION RT-QID PRN 05/31/24 05/31/24 [Duoneb 0.5 mg-3 mg/3 ml Soln] Isosorbide Mononitrate ER [Imdur] 30 mg PO DAILY 05/31/24 05/31/24 allopurinoL [Zyloprim] 100 mg PO DAILY 05/31/24 05/31/24 carvediloL [Coreg] 6.25 mg PO BID-W/MEALS 05/31/24 05/31/24 Allergies Allergy/AdvReac Type Severity Reaction Status Date / Time morphine Allergy Nausea & Verified 05/31/24 09:17 Vomiting Review of Systems ROS Statement: Those systems with pertinent positive or pertinent negative responses have been documented in the HPI. ROS Other: All systems not noted in ROS Statement are negative. Past Medical History Past Medical History: COPD Additional Past Medical History / Comment(s): aortic aneurysm,gout, whole repaired esophagus History of Any Multi-Drug Resistant Organisms: None Reported Past Surgical History: Coronary Bypass/CABG, Hernia Repair, Pacemaker Additional Past Surgical History / Comment(s): pacemaker, aortic aneurysm repair, 5 vessel bypass Past Anesthesia/Blood Transfusion Reactions: No Reported Reaction Type of Cardiac Device: Permanent Pacemaker Device Placement Date:: 2014 Past Psychological History: No Psychological Hx Reported Smoking Status: Former smoker Past Alcohol Use History: Occasional Past Drug Use History: None Reported - Past Family History Sister(s) Family Medical History: Cancer Additional Family Medical History / Comment(s): x 3 sisters General Exam General appearance: alert, in no apparent distress Head exam: Present: atraumatic, normocephalic, normal inspection Respiratory exam: Present: wheezes, rales, decreased breath sounds, prolonged expiratory Cardiovascular Exam: Present: regular rate, normal rhythm, normal heart sounds. Absent: systolic murmur, diastolic murmur, rubs, gallop, clicks Neurological exam: Present: alert, oriented X3, CN II-XII intact Psychiatric exam: Present: normal affect, normal mood Skin exam: Present: warm, dry, intact, normal color. Absent: rash Course Vital Signs 05/31/24 05/31/24 09:06 10:57 Temperature 98.0 F Pulse Rate 88 60 Respiratory 24 18 Rate Blood Pressure 151/92 147/95 O2 Sat by Pulse 96 98 Oximetry Medical Decision Making - Medical Decision Making This is an 83-year-old male who presents to the emergency department for shortness of breath. Was pt. sent in by a medical professional or institution? @ -No Did you speak to anyone other than the patient for history? @ -EMS provided the information about the medication they gave him. Did you review nursing and triage notes? @ -Yes, and I agree, it is accurate with regards to the patient's symptoms. Were old charts reviewed? @ -No Differential Diagnosis? @ -Differential Dyspnea: Coronary syndrome, arrhythmia, tamponade, asthma, COPD, pulmonary embolism, pneumonia, pneumothorax, pulmonary effusion, anaphylaxis, diabetic ketoacidosis, flailed chest, pulmonary contusion, diaphragmatic rupture, anemia, neuromuscular, this is not meant to be an all-inclusive list. EKG interpreted by me (3pts min.)? @ -EKG interpreted by me demonstrating the following: Electronic ventricular pacemaker. Ventricular rate 61 bpm, QRS duration 184 ms, QRS duration 465 ms. X-rays interpreted by me (1pt min.)? @ -Chest x-ray obtained. My interpretation identifies pulmonary vascular congestion. CT interpreted by me (1pt min.)? @ -Not obtained U/S interpreted by me (1pt. min.)? @ -Not obtained What testing was considered but not performed? (CT, X-rays, U/S, labs)? Why? @ -None What meds were considered but not given? Why? @ -None Did you discuss the management of the patient with other professionals? @ -Yes, Dr. Cameron, who accepts the patient for admission. Did you reconcile home meds? @ -No Was smoking cessation discussed for >3mins.? @ -No Was critical care preformed (if so, how long)? @ -No Were there social determinants of health that impacted care today? How? (Homelessness, low income, unemployed, alcoholism, drug addiction, transportation, low edu. Level, literacy, decrease access to med. care, [facility], rehab)? @ -No Was there de-escalation of care discussed even if they declined? (Discuss DNR or withdrawal of care, Hospice)? @ -No What co-morbidities impacted this encounter? (DM, HTN, Smoking, COPD, CAD, Cancer, CVA, Hep., AIDS, mental health diagnosis, sleep apnea, morbid obesity)? @ -COPD, CHF Was patient admitted / discharged? @ -Admitted. Lab work demonstrates an elevated BNP of 10,100. Lab work otherwise unremarkable. COVID, influenza, and RSV testing negative. Chest x- ray demonstrates pulmonary vascular congestion and bilateral pleural effusions consistent with CHF exacerbation. 40 mg of IV Lasix administered. Patient admitted to medicine for CHF exacerbation. Consult placed for cardiology. Case discussed with ED attending Dr. Bustillos. Undiagnosed new problem with uncertain prognosis? @ -None Drug Therapy requiring intensive monitoring for toxicity (Heparin, Nitro, Insulin, Cardizem)? @ -None Were any procedures done? @ -None Diagnosis/symptom? @ -CHF exacerbation Acute, or Chronic, or Acute on Chronic? @ -Acute on chronic Uncomplicated (without systemic symptoms) or Complicated (systemic symptoms)? @ -Complicated Side effects of treatment? @ -None Exacerbation, Progression, or Severe Exacerbation] @ -Exacerbation Poses a threat to life or bodily function? @ -Yes, can lead to worsening respiratory function - Lab Data Result diagrams: 05/31/24 09:20 05/31/24 09:20 Lab Results 05/31/24 05/31/24 05/31/24 Range/Units 09:20 09:20 09:20 WBC 9.0 (3.8-10.6) k/uL RBC 5.59 (4.30-5.90) m/uL Hgb 13.8 (13.0-17.5) gm/dL Hct 45.6 (39.0-53.0) % MCV 81.5 (80.0-100.0) fL MCH 24.7 L (25.0-35.0) pg MCHC 30.3 L (31.0-37.0) g/dL RDW 16.4 H (11.5-15.5) % Plt Count 324 (150-450) k/uL MPV 8.3 Neutrophils % 76 % Lymphocytes % 14 % Monocytes % 5 % Eosinophils % 2 % Basophils % 1 % Neutrophils # 6.8 (1.3-7.7) k/uL Lymphocytes # 1.3 (1.0-4.8) k/uL Monocytes # 0.5 (0-1.0) k/uL Eosinophils # 0.2 (0-0.7) k/uL Basophils # 0.0 (0-0.2) k/uL Hypochromasia Marked Anisocytosis Slight PT 13.0 H (10.0-12.5) sec INR 1.2 H (<1.2) APTT 28.0 (22.0-30.0) sec Sodium 139 (137-145) mmol/L Potassium 4.4 (3.5-5.1) mmol/L Chloride 107 (98-107) mmol/L Carbon Dioxide 28 (22-30) mmol/L Anion Gap 4 mmol/L BUN 20 (9-20) mg/dL Creatinine 1.10 (0.66-1.25) mg/dL Est GFR (CKD-EPI)AfAm 71 (>60 ml/min/1.73 sqM) Est GFR (CKD-EPI)NonAf 61 (>60 ml/min/1.73 sqM) Glucose 100 H (74-99) mg/dL Plasma Lactic Acid Jose A (0.7-2.0) mmol/L Calcium 9.1 (8.4-10.2) mg/dL Magnesium 1.9 (1.6-2.3) mg/dL Total Bilirubin 1.0 (0.2-1.3) mg/dL AST 27 (17-59) U/L ALT 19 (4-49) U/L Alkaline Phosphatase 67 (38-126) U/L Troponin I (0.000-0.034) ng/mL NT-Pro-B Natriuret Pep 10863 pg/mL Total Protein 6.3 (6.3-8.2) g/dL Albumin 3.7 (3.5-5.0) g/dL Influenza Type A (PCR) (Not Detectd) Influenza Type B (PCR) (Not Detectd) RSV (PCR) (Not Detectd) SARS-CoV-2 (PCR) (Not Detectd) 05/31/24 05/31/24 05/31/24 Range/Units 09:20 09:20 09:20 WBC (3.8-10.6) k/uL RBC (4.30-5.90) m/uL Hgb (13.0-17.5) gm/dL Hct (39.0-53.0) % MCV (80.0-100.0) fL MCH (25.0-35.0) pg MCHC (31.0-37.0) g/dL RDW (11.5-15.5) % Plt Count (150-450) k/uL MPV Neutrophils % % Lymphocytes % % Monocytes % % Eosinophils % % Basophils % % Neutrophils # (1.3-7.7) k/uL Lymphocytes # (1.0-4.8) k/uL Monocytes # (0-1.0) k/uL Eosinophils # (0-0.7) k/uL Basophils # (0-0.2) k/uL Hypochromasia Anisocytosis PT (10.0-12.5) sec INR (<1.2) APTT (22.0-30.0) sec Sodium (137-145) mmol/L Potassium (3.5-5.1) mmol/L Chloride (98-107) mmol/L Carbon Dioxide (22-30) mmol/L Anion Gap mmol/L BUN (9-20) mg/dL Creatinine (0.66-1.25) mg/dL Est GFR (CKD-EPI)AfAm (>60 ml/min/1.73 sqM) Est GFR (CKD-EPI)NonAf (>60 ml/min/1.73 sqM) Glucose (74-99) mg/dL Plasma Lactic Acid Jose A 1.5 (0.7-2.0) mmol/L Calcium (8.4-10.2) mg/dL Magnesium (1.6-2.3) mg/dL Total Bilirubin (0.2-1.3) mg/dL AST (17-59) U/L ALT (4-49) U/L Alkaline Phosphatase (38-126) U/L Troponin I 0.018 (0.000-0.034) ng/mL NT-Pro-B Natriuret Pep pg/mL Total Protein (6.3-8.2) g/dL Albumin (3.5-5.0) g/dL Influenza Type A (PCR) Not Detected (Not Detectd) Influenza Type B (PCR) Not Detected (Not Detectd) RSV (PCR) Not Detected (Not Detectd) SARS-CoV-2 (PCR) Not Detected (Not Detectd) - Radiology Data Radiology results: report reviewed, image reviewed Disposition Clinical Impression: CHF exacerbation Disposition: ADMITTED IP TO THIS HOSP
[2024-05-31 09:45] LABS: ALT 19 U/L (4-49); AST 27 U/L (17-59); African American GFR (CKD) 71 (>60 ml/min/1.73 sqM); Albumin 3.7 g/dL (3.5-5.0); Alkaline Phosphatase 67 U/L (38-126); Anion Gap 4 mmol/L; Blood Urea Nitrogen 20 mg/dL (9-20); Calcium 9.1 mg/dL (8.4-10.2); Carbon Dioxide 28 mmol/L (22-30); Chloride 107 mmol/L (98-107); Glucose 100 mg/dL (74-99); Magnesium 1.9 mg/dL (1.6-2.3); Non-African American GFR(CKD) 61 (>60 ml/min/1.73 sqM); Potassium 4.4 mmol/L (3.5-5.1); Sodium 139 mmol/L (137-145); Total Protein 6.3 g/dL (6.3-8.2)
[2024-05-31 09:53] LABS: NT-Pro-B-Type Natriuretic Pept 10100 pg/mL
[2024-05-31] MEDS ORDERED: ONDANSETRON 4 MG/2 ML VIAL IVP PRN (10:13)
[2024-05-31] MEDS ORDERED: HYDROcodone/APAP 5-325MG 1 EACH TAB PO PRN (10:13)
[2024-05-31] MEDS ORDERED: NALOXONE 0.4 MG/ML 1 ML VIAL IV PRN (10:13)
[2024-05-31] MEDS: FUROSEMIDE 10 MG/ML 4 ML VIAL IV STA (10:58)
--- NOTE | 2024-05-31 11:10 | P.HPIM ---
History of Present Illness This is a pleasant 83 years old male with past medical history of multiple medical problems as below. Presents because of short-term notes of breath worsening over a few days with no associated chest pain no coughing. He denies any abdominal pain or dysuria or diarrhea No headache dizziness weakness or numbness His gait with no issue as per patient and confirms He denies smoking or current alcohol or illicit drugs. Blood pressure stable, no fever CBC, BMP and liver enzymes are within the reference range. INR is normal Troponin is negative at 0.018 Influenza A and type B, RSV, SARS (coronavirus) are undetected Chest x-ray showing evidence of CHF proBNP is elevated 27032 EKG showing ventricular paced rhythm Review of Systems Review of systems CONSTITUTIONAL: No fever, no malaise, no fatigue. HEENT: No recent visual problems or hearing problems. Denied any sore throat. CARDIOVASCULAR: No orthopnea, PND, no palpitations, no syncope. PULMONARY: No s chest pain, no cough, no hemoptysis. GASTROINTESTINAL: No diarrhea, no nausea, no vomiting, no abdominal pain. Normoactive bowel sounds. NEUROLOGICAL: No headaches, no weakness, no numbness. HEMATOLOGICAL: Denies any bleeding or petechiae. GENITOURINARY: Denies any burning micturition, frequency, or urgency. MUSCULOSKELETAL/RHEUMATOLOGICAL: Denies any joint pain, swelling, or any muscle pain. ENDOCRINE: Denies any polyuria or polydipsia. Past Medical History Past Medical History: COPD Additional Past Medical History / Comment(s): aortic aneurysm,gout, whole repaired esophagus History of Any Multi-Drug Resistant Organisms: None Reported Past Surgical History: Coronary Bypass/CABG, Hernia Repair, Pacemaker Additional Past Surgical History / Comment(s): pacemaker, aortic aneurysm repair, 5 vessel bypass Past Anesthesia/Blood Transfusion Reactions: No Reported Reaction Type of Cardiac Device: Permanent Pacemaker Device Placement Date:: 2014 Past Psychological History: No Psychological Hx Reported Smoking Status: Former smoker Past Alcohol Use History: Occasional Past Drug Use History: None Reported - Past Family History Sister(s) Family Medical History: Cancer Additional Family Medical History / Comment(s): x 3 sisters Medications and Allergies Home Medications Medication Instructions Recorded Confirmed Type ALPRAZolam [Xanax] 0.5 mg PO HS 08/30/15 07/19/23 History Multivitamins, Thera [Multivitamin] 1 tab PO DAILY 08/30/15 07/19/23 History Simvastatin [Zocor] 20 mg PO HS 08/30/15 07/19/23 History amLODIPine [Norvasc] 10 mg PO DAILY 08/30/15 07/19/23 History Furosemide [Lasix] 20 mg PO BID 11/30/17 07/19/23 History Potassium Chloride [Klor-Con 10] 10 meq PO DAILY 11/30/17 07/19/23 History Losartan Potassium [Cozaar] 12.5 mg PO QAM 10/17/19 07/19/23 History Rivaroxaban [Xarelto] 15 mg PO QAM 10/17/19 07/19/23 History Vitamin C (Unknown Dose) 1 tab PO HS 10/17/19 07/19/23 History Cholecalciferol [Vitamin D3 (25 2,000 unit PO DAILY 05/08/22 07/19/23 History Mcg = 1000 Iu)] Omeprazole 20 mg PO DAILY 05/08/22 07/19/23 History Tamsulosin [Flomax] 0.4 mg PO HS 05/08/22 07/19/23 History Dapagliflozin Propanediol [Farxiga] 5 mg PO DAILY 07/13/23 07/19/23 History Allergies Allergy/AdvReac Type Severity Reaction Status Date / Time morphine Allergy Nausea & Verified 05/31/24 09:17 Vomiting Physical Exam Vitals: Vital Signs Temp Pulse Resp BP Pulse Ox 05/31/24 10:57 60 18 147/95 98 05/31/24 09:06 98.0 F 88 24 151/92 96 Intake and Output 05/30/24 05/31/24 05/31/24 22:59 06:59 14:59 Other: Weight 71.668 kg GENERAL: The patient is alert and oriented x3, not in any acute distress. Well developed, well nourished. HEENT: Pupils are round and equally reacting to light. EOMI. No scleral icterus. No conjunctival pallor. Normocephalic, atraumatic. No pharyngeal erythema. No thyromegaly. CARDIOVASCULAR: S1 and S2 present. No murmurs, rubs, or gallops. -PULMONARY: Chest is clear to auscultation, no wheezing , n bilateral basal crackles. ABDOMEN: Soft, nontender, nondistended, normoactive bowel sounds. No palpable organomegaly. MUSCULOSKELETAL: No joint swelling or deformity. -EXTREMITIES: No cyanosis, clubbing, or p bilateral pitting leg edema. NEUROLOGICAL: Gross neurological examination did not reveal any focal deficits. SKIN: No rashes. no petechiae. Results CBC & Chem 7: 05/31/24 09:20 05/31/24 09:20 Labs: Abnormal Lab Results - Last 24 Hours (Table) 05/31/24 05/31/24 05/31/24 Range/Units 09:20 09:20 09:20 MCH 24.7 L (25.0-35.0) pg MCHC 30.3 L (31.0-37.0) g/dL RDW 16.4 H (11.5-15.5) % PT 13.0 H (10.0-12.5) sec INR 1.2 H (<1.2) Glucose 100 H (74-99) mg/dL Assessment and Plan Assessment: Acute CHF exacerbation, unknown ejection fraction COPD with no acute exacerbation Coronary artery disease status post CABG Plan: Continue with IV Lasix Monitor input and output. Monitor creatinine Cardiology team consult Labs and medication were reviewed.. Continue same treatment. Continue with symptomatic treatment. Resume home medication. Monitor labs and vitals. DVT and GI prophylaxis. Further recommendations as per clinical course of the patient DVT prophylaxis: Resume anticoagulation once verified from the pharmacy GI Prophylaxis: Pepcid PT/OT: Pending Prognosis is guarded
[2024-05-31] MEDS ORDERED: CLOPIDOGREL 75 MG TAB PO SCH (13:00)
--- NOTE | 2024-05-31 13:26 | P.CRDCN ---
History of Present Illness History of present illness: HISTORY OF PRESENT ILLNESS: This is a 83-year-old male with a past medical history significant for atrial fibrillation, coronary artery disease with previous CABG, cardiomyopathy, congestive heart failure, valvular heart disease, and pacemaker implantation. Patient follows in the office with Dr. Monet. We have been asked to see the patient in consultation for congestive heart failure. Patient examined at the bedside in the emergency room. Patient presented to the hospital to chief complaint of shortness of breath. He states he has been feeling short of breath for the past 2 to 3 days. He reports a mild cough with no sputum production. No dizziness or lightheadedness. No palpitations. No chest pain or pressure. He reports not having an increase in lower extremity edema. The patient was found to be in acute CHF and was started on IV diuretics. It is noted that the patient was hospitalized in April 2024 at [facility] for CHF. Patient underwent echocardiogram at that time revealing EF 40 to 45% with moderate MR. He was also found to have elevated troponins. Cardiac cath versus medical management was discussed and the patient decided to pursue medical therapy. DIAGNOSTICS: - EKG reveals ventricular paced rhythm - Chest xray findings consistent with mild to moderate CHF - Laboratory data: WBC 9.0. Hemoglobin 13.8. Platelet count 324. Sodium 139. Potassium 4.4. BUN 20. Creatinine 1.1. Troponin negative x 1. proBNP 10,100. - Current home cardiac medications include Lasix 40 mg daily, losartan 12.5 mg daily, Xarelto 15 mg daily, Lipitor 40 mg with supper, Imdur 30 mg daily, carvedilol 6.25 mg twice a day, aspirin 81 mg daily - Most recent echocardiogram obtained in April 2024 revealed ejection fraction 42%, moderate MR, mild to moderate TR - Patient underwent Lexiscan stress test in January 2021 revealing fixed inferior apical defect REVIEW OF SYSTEMS: At the time of my exam: CONSTITUTIONAL: Denies fever or chills. HEENT: Denies blurred vision, vision changes, or eye pain. Denies hemoptysis CARDIOVASCULAR: Denies chest pain. Denies orthopnea. Denies PND. Denies palpitations RESPIRATORY: Denies shortness of breath. GASTROINTESTINAL: Denies abdominal pain. Denies nausea or vomiting. HEMATOLOGIC: Denies bleeding disorders. GENITOURINARY: Denies any blood in urine. SKIN: Denies pruitis. Denies rash. PHYSICAL EXAM: VITAL SIGNS: Reviewed. GENERAL: Well-developed in no acute distress. HEENT: Head is normocephalic. Pupils are equal, round. Sclerae anicteric. Mucous membranes of the mouth are moist. Neck supple. No JVD or thyromegaly LUNGS: Respirations even and unlabored. Lungs with bibasilar crackles HEART: Regular rate and rhythm. S1 and S2 heard. Systolic murmur ABDOMEN: Soft. Nondistended. Nontender. EXTREMITIES: Normal range of motion. No clubbing or cyanosis. Peripheral pulses intact. 1+ bilateral lower extremity edema NEUROLOGIC: Awake and alert. Oriented x 3. ASSESSMENT: Shortness of breath Acute on chronic heart failure with reduced EF, 42% Coronary artery disease with previous 5 vessel CABG, 2001 Ischemic cardiomyopathy Permanent atrial fibrillation History of dual-chamber pacemaker implantation, [employer] Valvular heart disease PLAN: No need to obtain echocardiogram as this was performed at [facility] in April 2024 Resume home cardiac medications Continue IV Lasix 40 mg every 12 hours Daily weights, accurate intake and output, and monitoring of kidney function Add Farxiga 10 mg daily Further recommendations pending patient course Nurse practitioner note has been reviewed by physician. Signing provider agrees with the documented findings, assessment, and plan of care documented by [employer] OPERATOR as a scribe. Past Medical History Past Medical History: COPD Additional Past Medical History / Comment(s): aortic aneurysm,gout, whole repaired esophagus History of Any Multi-Drug Resistant Organisms: None Reported Past Surgical History: Coronary Bypass/CABG, Hernia Repair, Pacemaker Additional Past Surgical History / Comment(s): pacemaker, aortic aneurysm repair, 5 vessel bypass Past Anesthesia/Blood Transfusion Reactions: No Reported Reaction Type of Cardiac Device: Permanent Pacemaker Device Placement Date:: 2014 Past Psychological History: No Psychological Hx Reported Smoking Status: Former smoker Past Alcohol Use History: Occasional Past Drug Use History: None Reported - Past Family History Sister(s) Family Medical History: Cancer Additional Family Medical History / Comment(s): x 3 sisters Medications and Allergies Home Medications Medication Instructions Recorded Confirmed Type ALPRAZolam [Xanax] 0.5 mg PO HS 08/30/15 05/31/24 History Multivitamins, Thera [Multivitamin] 1 tab PO DAILY 08/30/15 05/31/24 History Furosemide [Lasix] 40 mg PO DAILY 11/30/17 05/31/24 History Losartan Potassium [Cozaar] 12.5 mg PO DAILY 10/17/19 05/31/24 History Rivaroxaban [Xarelto] 15 mg PO DAILY 10/17/19 05/31/24 History Tamsulosin [Flomax] 0.4 mg PO HS 05/08/22 05/31/24 History Aspirin EC [Ecotrin Low Dose] 81 mg PO DAILY 05/31/24 05/31/24 History Atorvastatin [Lipitor] 40 mg PO W/SUPPER 05/31/24 05/31/24 History Clopidogrel [Plavix] 75 mg PO DAILY 05/31/24 05/31/24 History Ipratropium-Albuterol Nebulize 3 ml INHALATION RT-QID PRN 05/31/24 05/31/24 History [Duoneb 0.5 mg-3 mg/3 ml Soln] Isosorbide Mononitrate ER [Imdur] 30 mg PO DAILY 05/31/24 05/31/24 History allopurinoL [Zyloprim] 100 mg PO DAILY 05/31/24 05/31/24 History carvediloL [Coreg] 6.25 mg PO BID-W/MEALS 05/31/24 05/31/24 History Allergies Allergy/AdvReac Type Severity Reaction Status Date / Time morphine Allergy Nausea & Verified 05/31/24 09:17 Vomiting Physical Exam Vitals: Vital Signs Temp Pulse Resp BP Pulse Ox 05/31/24 10:57 60 18 147/95 98 05/31/24 09:06 98.0 F 88 24 151/92 96 Intake and Output 05/30/24 05/31/24 05/31/24 22:59 06:59 14:59 Output Total 325 Balance -325 Output: Urine 325 Other: Weight 71.668 kg Results 05/31/24 09:20 05/31/24 09:20 Cardiac Enzymes 05/31/24 05/31/24 Range/Units 09:20 09:20 AST 27 (17-59) U/L Troponin I 0.018 (0.000-0.034) ng/mL Coagulation 05/31/24 Range/Units 09:20 PT 13.0 H (10.0-12.5) sec APTT 28.0 (22.0-30.0) sec CBC 05/31/24 Range/Units 09:20 WBC 9.0 (3.8-10.6) k/uL RBC 5.59 (4.30-5.90) m/uL Hgb 13.8 (13.0-17.5) gm/dL Hct 45.6 (39.0-53.0) % Plt Count 324 (150-450) k/uL Comprehensive Metabolic Panel 05/31/24 Range/Units 09:20 Sodium 139 (137-145) mmol/L Potassium 4.4 (3.5-5.1) mmol/L Chloride 107 (98-107) mmol/L Carbon Dioxide 28 (22-30) mmol/L BUN 20 (9-20) mg/dL Creatinine 1.10 (0.66-1.25) mg/dL Glucose 100 H (74-99) mg/dL Calcium 9.1 (8.4-10.2) mg/dL AST 27 (17-59) U/L ALT 19 (4-49) U/L Alkaline Phosphatase 67 (38-126) U/L Total Protein 6.3 (6.3-8.2) g/dL Albumin 3.7 (3.5-5.0) g/dL Current Medications Generic Name Dose Route Start Last Admin Trade Name Freq PRN Reason Stop Dose Admin Acetaminophen 650 mg 05/31/24 10:13 Acetaminophen Tab 325 Mg Tab PO Q6HR PRN Mild Pain or Fever > 100.5 Hydrocodone Bitart/Acetaminophen 1 each 05/31/24 10:13 Hydrocodone/Apap 5-325mg 1 Each Tab PO Q4HR PRN Moderate Pain (Scale 4 to 6) Famotidine 20 mg 05/31/24 21:00 Famotidine 20 Mg/2 Ml Vial IV Q12HR YARELIS Furosemide 40 mg 05/31/24 21:00 Furosemide 10 Mg/Ml 4 Ml Vial IV Q12HR YARELIS Naloxone HCl 0.2 mg 05/31/24 10:13 Naloxone 0.4 Mg/Ml 1 Ml Vial IV Q2M PRN Opioid Reversal Ondansetron HCl 4 mg 05/31/24 10:13 Ondansetron 4 Mg/2 Ml Vial IVP Q8HR PRN Nausea And Vomiting Pantoprazole Sodium 40 mg 06/01/24 09:00 Pantoprazole 40 Mg/10 Ml Vial IV DAILY YARELIS Intake and Output 05/30/24 05/31/24 05/31/24 22:59 06:59 14:59 Output Total 325 Balance -325 Output: Urine 325 Other: Weight 71.668 kg Patient Weight 06/01/24 06:59 Weight 71.668 kg 05/31/24 09:20 05/31/24 09:20
[2024-05-31] MEDS: LOSARTAN 25 MG TAB PO SCH (13:45)
[2024-05-31] MEDS: ISOSORBIDE MONONITRATE ER 30 MG TAB.ER.24H PO SCH (13:45)
[2024-05-31] MEDS: ASPIRIN 81 MG PO SCH (13:46)
[2024-05-31] MEDS: RIVAROXABAN 15 MG TAB PO SCH (13:47)
[2024-05-31] MEDS: carvediloL 6.25 MG TAB PO SCH (17:14)
[2024-05-31] MEDS: ATORVASTATIN 40 MG TAB PO SCH (17:14)
[2024-05-31] MEDS: FUROSEMIDE 10 MG/ML 4 ML VIAL IV SCH (20:26)
[2024-05-31] MEDS: FAMOTIDINE 20 MG/2 ML VIAL IV SCH (20:26)
[2024-05-31] MEDS: ACETAMINOPHEN TAB 325 MG TAB PO PRN (22:06)
[2024-06-01] MEDS: ALPRAZolam 0.5 MG TAB PO SCH (00:25)
[2024-06-01] MEDS: IPRATROPIUM-ALBUTEROL 3 ML NEB INHALATION PRN (00:41)
[2024-06-01 07:42] VITALS: RESP 16
[2024-06-01 09:29] LABS: Blood Urea Nitrogen 24.7 mg/dL (9.0-27.0); Calcium 9.1 mg/dL (8.7-10.3); Carbon Dioxide 26.1 mmol/L (21.6-31.8); Chloride 103 mmol/L (96-109); Glucose 104 mg/dL (70-110); Potassium 4.2 mmol/L (3.5-5.5); Sodium 140 mmol/L (135-145)
[2024-06-01] MEDS: PANTOPRAZOLE 40 MG/10 ML VIAL IV SCH (09:50)
[2024-06-01] MEDS: DAPAGLIFLOZIN PROPANEDIOL 10 MG TABLET PO SCH (09:51)
[2024-06-01] MEDS: MULTIVITAMINS, THERA 1 EACH TAB PO SCH (09:51)
[2024-06-01] MEDS: allopurinoL 100 MG TAB PO SCH (09:51)
--- NOTE | 2024-06-01 12:01 | P.PN ---
Subjective This is a pleasant 83 years old male with past medical history of multiple medical problems as below. Presents because of short-term notes of breath worsening over a few days with no associated chest pain no coughing. He denies any abdominal pain or dysuria or diarrhea No headache dizziness weakness or numbness His gait with no issue as per patient and confirms He denies smoking or current alcohol or illicit drugs. Blood pressure stable, no fever CBC, BMP and liver enzymes are within the reference range. INR is normal Troponin is negative at 0.018 Influenza A and type B, RSV, SARS (coronavirus) are undetected Chest x-ray showing evidence of CH[place] 07809 EKG showing ventricular paced rhythm 06/01 Patient dyspnea is improving No chest pain Creatinine 1.3 He yamile on IV Lasix 40 mg twice daily He wants to be DNR Family members at bedside Objective - Vital Signs Vital signs: Vital Signs Temp 97.9 F 06/01/24 07:21 Pulse 78 06/01/24 08:45 Resp 16 06/01/24 08:45 BP 151/85 06/01/24 07:21 Pulse Ox 96 06/01/24 07:21 FiO2 Intake & Output 05/31/24 06/01/24 06/01/24 18:59 06:59 18:59 Intake Total 480 Output Total 1325 Balance -1325 480 Weight 71.668 kg 69.3 kg Intake: Oral 480 Output: Urine 1325 Other: Voiding Method Toilet Urinal - Exam GENERAL: The patient is alert and oriented x3, not in any acute distress. Well developed, well nourished. HEENT: Pupils are round and equally reacting to light. EOMI. No scleral icterus. No conjunctival pallor. Normocephalic, atraumatic. No pharyngeal erythema. No thyromegaly. CARDIOVASCULAR: S1 and S2 present. No murmurs, rubs, or gallops. PULMONARY: Chest is clear to auscultation, no wheezing , no crackles. ABDOMEN: Soft, nontender, nondistended, normoactive bowel sounds. No palpable organomegaly. MUSCULOSKELETAL: No joint swelling or deformity. EXTREMITIES: No cyanosis, clubbing, or pedal edema. NEUROLOGICAL: Gross neurological examination did not reveal any focal deficits. SKIN: No rashes. no petechiae. - Labs CBC & Chem 7: 05/31/24 09:20 06/01/24 05:57 Labs: Abnormal Lab Results - Last 24 Hours (Table) 06/01/24 Range/Units 05:57 Est GFR (CKD-EPI) 54 L (>=60) Assessment and Plan Assessment: Acute CHF exacerbation, unknown ejection fraction COPD with no acute exacerbation Coronary artery disease status post CABG Plan: Continue with IV Lasix Monitor input and output. Monitor creatinine Cardiology team consult Labs and medication were reviewed.. Continue same treatment. Continue with symptomatic treatment. Resume home medication. Monitor labs and vitals. DVT and GI prophylaxis. Further recommendations as per clinical course of the patient DVT prophylaxis: Xarelto GI Prophylaxis: Ppi Prognosis is guarded
--- NOTE | 2024-06-01 12:03 | P.PN ---
Subjective Progress Note Date: 06/01/24 History of Present Illness: The patient is an 83-year-old male with known history of CABG, cardiomyopathy, prior history of CHF, atrial fibrillation who presented with symptoms of progressive dyspnea. His last echocardiogram showed an ejection fraction of 40 to 45% with moderate mitral, mild to moderate tricuspid regurgitation. He presented with CHF and is feeling better today. He denies any chest discomfort, dizziness or palpitations. He denies any nausea. He continues to be on IV diuretics. Medications: Aspirin, atorvastatin 40 mg daily, carvedilol 6.5 mg twice a day, Farxiga 10 mg daily, Lasix 40 mg IV every 12 hours, isosorbide mononitrate 30 mg daily, losartan 12-1/2 mg daily, rivaroxaban 15 mg daily, Flomax 0.4 mg daily. Physical Examination: 83-year-old male, alert oriented no apparent distress,Blood pressure 134/70, Heart rate 60 Head: Normocephalic. Eyes: Sclerae nonicteric. Neck: Good carotid upstroke, no bruit, no jugular venous distention. Lungs: Few crackles at the base Heart: Irregular rate and rhythm, S1-S2, no S3, no rub. Holosystolic murmur at the apex. Abdomen: Soft nontender, positive bowel sounds no organomegaly. Extremities: +1 edema, intact distal pulses. Labs: Potassium 4.2, BUN 24, creatinine 1.3. Impression: 1. CHF with moderately impaired systolic function 2. History of CAD status post CABG with no evidence of acute coronary syndrome 3. Persistent atrial fibrillation, anticoagulated 4. Permanent pacemaker implantation 5. History of hyperlipidemia 6. History of hypertension Plan: 1. Continue IV diuresis for 24 hours 2. Add spironolactone 25 mg daily and follow renal functions and potassium 3. Increase losartan to 25 mg daily 4. Increase physical activity 5. Depending on his progress further recommendations will be made Objective - Vital Signs Vital signs: Vital Signs Temp 97.9 F 06/01/24 07:21 Pulse 78 06/01/24 08:45 Resp 16 06/01/24 08:45 BP 151/85 06/01/24 07:21 Pulse Ox 96 06/01/24 07:21 FiO2 Intake & Output 05/31/24 06/01/24 06/01/24 18:59 06:59 18:59 Intake Total 480 Output Total 1325 Balance -1325 480 Weight 71.668 kg 69.3 kg Intake: Oral 480 Output: Urine 1325 Other: Voiding Method Toilet Urinal - Labs CBC & Chem 7: 05/31/24 09:20 06/01/24 05:57 Labs: Abnormal Lab Results - Last 24 Hours (Table) 06/01/24 Range/Units 05:57 Est GFR (CKD-EPI) 54 L (>=60)
[2024-06-01] MEDS: SPIRONOLACTONE 25 MG TAB PO SCH (14:18)
[2024-06-01] MEDS ORDERED: ALPRAZolam 0.5 MG TAB PO SCH (21:00)
[2024-06-01] MEDS: TAMSULOSIN 0.4 MG CAP.ER.24H PO SCH (21:58)
[2024-06-02] MEDS: LOSARTAN 25 MG TAB PO SCH (08:22)
[2024-06-02 08:51] LABS: BUN/Creat Ratio 22.29 Ratio (12.00-20.00); Blood Urea Nitrogen 31.2 mg/dL (9.0-27.0); Calcium 9.7 mg/dL (8.7-10.3); Carbon Dioxide 28.6 mmol/L (21.6-31.8); Chloride 98 mmol/L (96-109); Glucose 85 mg/dL (70-110); Potassium 4.2 mmol/L (3.5-5.5); Sodium 138 mmol/L (135-145)
[2024-06-02 12:30] VITALS: BP 111/69; TEMP 97.4
[2024-06-02] MEDS: CALCIUM CARBONATE 500 MG CHEWABLE PO PRN (14:01)
--- NOTE | 2024-06-02 14:43 | P.PN ---
Subjective History of Present Illness: The patient is an 83-year-old male with known history of CABG, cardiomyopathy, prior history of CHF, atrial fibrillation who presented with symptoms of progressive dyspnea. His last echocardiogram showed an ejection fraction of 40 to 45% with moderate mitral, mild to moderate tricuspid regurgitation. He presented with CHF and is feeling better today. He denies any chest discomfort, dizziness or palpitations. He denies any nausea. He continues to be on IV diuretics. Medications: Aspirin, atorvastatin 40 mg daily, carvedilol 6.5 mg twice a day, Farxiga 10 mg daily, Lasix 40 mg IV every 12 hours, isosorbide mononitrate 30 mg daily, losartan 12-/2 mg daily, rivaroxaban 15 mg daily, Flomax 0.4 mg daily. 06/02 Patient seen and examined. Patient overall feels better however not hold per for ". Creatinine 1.4. Denies any chest pain or pressure. At times she will still get a sensation of feeling short of breath. We discussed some of this may be related to anxiety, does not appear clearly anginal. Also discussed using as needed nitro. Physical Examination: 83-year-old male, alert oriented no apparent distress,Blood pressure 134/70, Heart rate 60 Head: Normocephalic. Eyes: Sclerae nonicteric. Neck: Good carotid upstroke, no bruit, no jugular venous distention. Lungs: Few crackles at the base Heart: Irregular rate and rhythm, S1-S2, no S3, no rub. Holosystolic murmur at the apex. Abdomen: Soft nontender, positive bowel sounds no organomegaly. Extremities: +1 edema, intact distal pulses. Labs: Potassium 4.2, BUN 24, creatinine 1.3. Impression: 1. CHF with moderately impaired systolic function 2. History of CAD status post CABG with no evidence of acute coronary syndrome 3. Persistent atrial fibrillation, anticoagulated 4. Permanent pacemaker implantation 5. History of hyperlipidemia 6. History of hypertension 7. Acute on chronic systolic heart failure Plan: Patient currently does not appear volume overloaded. He has had changes to his medical regimen with increase of losartan and addition of spironolactone. Continue for now. He is complaining of some bilateral breast pain however this was before he had started the spironolactone. We discussed taking nitro as needed and send patient home with nitro as well as Lasix 40 mg oral daily. Stable for discharge home today. Objective - Vital Signs Vital signs: Vital Signs Temp 97.4 F L 06/02/24 12:19 Pulse 62 06/02/24 12:19 Resp 16 06/02/24 12:19 BP 111/69 06/02/24 12:19 Pulse Ox 95 06/02/24 12:19 FiO2 Intake & Output 06/01/24 06/02/24 06/02/24 18:59 06:59 18:59 Intake Total 2580 590 Output Total 3000 2600 Balance - Weight 69.3 kg 148.1 kg 67 kg Intake: Oral 2580 590 Output: Urine 3000 2600 Other: Voiding Method Toilet Urinal # Bowel Movements 1 - Labs CBC & Chem 7: 05/31/24 09:20 06/02/24 04:22 Labs: Abnormal Lab Results - Last 24 Hours (Table) 06/01/24 06/02/24 Range/Units 06:47 04:22 BUN 31.2 H (9.0-27.0) mg/dL Est GFR (CKD-EPI) 49 L (>=60) BUN/Creatinine Ratio 22.29 H (12.00-20.00) Ratio NT-Pro-B Natriuret Pep 15168 H (0-450) pg/mL
--- NOTE | 2024-06-02 15:03 | XR ---
2 view chest HISTORY: Follow-up CHF COMPARISON: 05/31/2024. TECHNIQUE: PA and lateral views chest obtained. FINDINGS: Prior CABG surgery. There is a 2-lead cardiac pacemaker in unchanged position. There is moderate to marked cardiomegaly. There is a persistent small left pleural effusion. There is no airspace consolidation. The pulmonary vasculature does not appear congested. No pneumotho rax. The osseous structures are intact. IMPRESSION: No change in the small left effusion and moderate to marked cardiomegaly. There is no overt CHF or ai rspace consolidation. [facility], Workstation: [email or web address], 06/02/2024 3:00 PM
[2024-06-02 15:23] VITALS: PULSE 75
--- NOTE | 2024-06-02 21:31 | P.DS ---
Providers Date of admission: 05/31/24 10:09 Expected date of discharge: 06/02/24 Attending physician: Rene Holden Consults: 05/31/24 10:13 Consult Physician Urgent Consulting Provider: Avel Monet Consult Reason/Comments: CHF exacerbation Do you want consulting provider notified?: Yes Primary care physician: [facility] Hospital Course: This is a pleasant 83 years old male with past medical history of multiple medical problems as below. Presents because of short-term notes of breath worsening over a few days with no associated chest pain no coughing. He denies any abdominal pain or dysuria or diarrhea No headache dizziness weakness or numbness His gait with no issue as per patient and confirms He denies smoking or current alcohol or illicit drugs. Blood pressure stable, no fever CBC, BMP and liver enzymes are within the reference range. INR is normal Troponin is negative at 0.018 Influenza A and type B, RSV, SARS (coronavirus) are undetected Chest x-ray showing evidence of CHF proBNP is elevated 87331 EKG showing ventricular paced rhythm 06/01 Patient dyspnea is improving No chest pain Creatinine 1.3 He yamile on IV Lasix 40 mg twice daily He wants to be DNR Family members at bedside June 02: I assumed care of the patient today. Breathing much better. Very slight cough. No edema. Did ambulate. Cleared by cardiology for discharge. Discussed. Follow-up outpatient with cardiology. INVESTIGATIONS, reviewed in the clinical context: June 02: Potassium 4.2 creatinine 1.4 Assessment plan: -Acute on chronic CHF exacerbation, Vidhi systolic dysfunction EF 40 to 45%. Aldactone. Cozaar. Farxiga. Lasix -Moderate mitral, mild to moderate tricuspid regurgitation -COPD with no acute exacerbation DuoNeb 4 times daily as needed -Coronary artery disease status post CABG Coreg. -Hyperuricemia Allopurinol -Possible chronic kidney disease . Stage III. Likely nephrosclerosis. Follow labs outpatient. -Full code Disposition: Home Plan - Discharge Summary New Discharge Prescriptions: New Losartan [Cozaar] 25 mg PO DAILY tab Spironolactone [Aldactone] 25 mg PO DAILY #30 tab Dapagliflozin Propanediol [Farxiga] 10 mg PO DAILY #30 tab Continue ALPRAZolam [Xanax] 0.5 mg PO HS Multivitamins, Thera [Multivitamin (formulary)] 1 tab PO DAILY Furosemide [Lasix] 40 mg PO DAILY Rivaroxaban [Xarelto] 15 mg PO DAILY Tamsulosin [Flomax] 0.4 mg PO HS carvediloL [Coreg] 6.25 mg PO BID-W/MEALS allopurinoL [Zyloprim] 100 mg PO DAILY Isosorbide Mononitrate ER [Imdur] 30 mg PO DAILY Ipratropium-Albuterol Nebulize [Duoneb 0.5 mg-3 mg/3 ml Soln] 3 ml INHALATION RT-QID PRN PRN Reason: Shortness Of Breath Aspirin EC [Ecotrin Low Dose] 81 mg PO DAILY Atorvastatin [Lipitor] 40 mg PO W/SUPPER Discontinued Losartan Potassium [Cozaar] 12.5 mg PO DAILY Clopidogrel [Plavix] 75 mg PO DAILY Discharge Medication List ALPRAZolam [Xanax] 0.5 mg PO HS 08/30/15 [History] Multivitamins, Thera [Multivitamin (formulary)] 1 tab PO DAILY 08/30/15 [Hist ory] Furosemide [Lasix] 40 mg PO DAILY 11/30/17 [History] Rivaroxaban [Xarelto] 15 mg PO DAILY 10/17/19 [History] Tamsulosin [Flomax] 0.4 mg PO HS 05/08/22 [History] Aspirin EC [Ecotrin Low Dose] 81 mg PO DAILY 05/31/24 [History] Atorvastatin [Lipitor] 40 mg PO W/SUPPER 05/31/24 [History] Ipratropium-Albuterol Nebulize [Duoneb 0.5 mg-3 mg/3 ml Soln] 3 ml INHALATION RT-QID PRN 05/31/24 [History] Isosorbide Mononitrate ER [Imdur] 30 mg PO DAILY 05/31/24 [History] allopurinoL [Zyloprim] 100 mg PO DAILY 05/31/24 [History] carvediloL [Coreg] 6.25 mg PO BID-W/MEALS 05/31/24 [History] Dapagliflozin Propanediol [Farxiga] 10 mg PO DAILY #30 tab 06/02/24 [Rx] Losartan [Cozaar] 25 mg PO DAILY tab 06/02/24 [Rx] Spironolactone [Aldactone] 25 mg PO DAILY #30 tab 06/02/24 [Rx] Follow up Appointment(s)/Referral(s): cardiology, [Other] - 2 Weeks Seth Rey DO [Primary Care Provider] - 1-2 days (the office will call with a follow up appointment) Patient Instructions/Handouts: Heart Failure (GEN) Discharge Disposition: HOME SELF-CARE
[2024-06-03] MEDS ORDERED: FAMOTIDINE 20 MG/2 ML VIAL IV SCH (09:00)
== END 2024-06-02 18:20 | disposition home or self-care (01) | DRG 291 ==
LOC: EC 09:00 → 5NMEDONC 10:09
PROVIDERS: ADMIT Hospitalist; ATTEND Hospitalist
DX: I13.0 Hypertensive heart and chronic kidney disease with heart failure and stage 1 through stage 4 chronic kidney disease, or unspecified chronic kidney disease (principal); I50.23 Acute on chronic systolic (congestive) heart failure; I48.21 Permanent atrial fibrillation; E78.5 Hyperlipidemia, unspecified; I25.10 Atherosclerotic heart disease of native coronary artery without angina pectoris; I25.5 Ischemic cardiomyopathy; M10.9 Gout, unspecified; J44.9 Chronic obstructive pulmonary disease, unspecified; I08.1 Rheumatic disorders of both mitral and tricuspid valves; N18.30 Chronic kidney disease, stage 3 unspecified; Z66 Do not resuscitate; Z79.01 Long term (current) use of anticoagulants; Z79.02 Long term (current) use of antithrombotics/antiplatelets; Z79.82 Long term (current) use of aspirin; Z79.84 Long term (current) use of oral hypoglycemic drugs; Z79.899 Other long term (current) drug therapy; Z87.891 Personal history of nicotine dependence; Z95.0 Presence of cardiac pacemaker; Z95.1 Presence of aortocoronary bypass graft; Z87.19 Personal history of other diseases of the digestive system; Z88.5 Allergy status to narcotic agent
CPT/HCPCS: 36415; 71046; 80048; 80053; 83605; 83735; 83880; 84484; 85025; 85610; 85730; 87636; 93005; 94640; 94760; 96374; 96375; 96376; 99285

== ENCOUNTER 2024-07-09 06:33 | Emergency (ER) | payer MEDICARE, BC ==
--- NOTE | 2024-07-09 06:41 | ED ---
General Adult HPI - General Chief complaint: Shortness of Breath Stated complaint: SOB Time Seen by Provider: 07/09/24 06:34 Source: patient, EMS Mode of arrival: EMS - History of Present Illness Initial comments: Pleasant 83-year-old gentleman with history of CHF, COPD. Patient presents the ER today via ambulance for evaluation of difficulty breathing. Patient reports that last night he developed sudden onset of difficulty breathing, coughing, minimally productive cough producing only sputum. No fevers chills nausea or vomiting. No known sick contacts. He did a breathing treatment at home last night with minimal improvement received breathing treatment en route to the hospital with some improvement in his difficulty in breathing. - Related Data Home Medications Medication Instructions Recorded Confirmed ALPRAZolam [Xanax] 0.5 mg PO HS 08/30/15 05/31/24 Multivitamins, Thera [Multivitamin 1 tab PO DAILY 08/30/15 05/31/24 (formulary)] Furosemide [Lasix] 40 mg PO DAILY 11/30/17 05/31/24 Rivaroxaban [Xarelto] 15 mg PO DAILY 10/17/19 05/31/24 Tamsulosin [Flomax] 0.4 mg PO HS 05/08/22 05/31/24 Aspirin EC [Ecotrin Low Dose] 81 mg PO DAILY 05/31/24 05/31/24 Atorvastatin [Lipitor] 40 mg PO W/SUPPER 05/31/24 05/31/24 Ipratropium-Albuterol Nebulize 3 ml INHALATION RT-QID PRN 05/31/24 05/31/24 [Duoneb 0.5 mg-3 mg/3 ml Soln] Isosorbide Mononitrate ER [Imdur] 30 mg PO DAILY 05/31/24 05/31/24 allopurinoL [Zyloprim] 100 mg PO DAILY 05/31/24 05/31/24 carvediloL [Coreg] 6.25 mg PO BID-W/MEALS 05/31/24 05/31/24 Previous Rx's Medication Instructions Recorded Dapagliflozin Propanediol [Farxiga] 10 mg PO DAILY #30 tab 06/02/24 Losartan [Cozaar] 25 mg PO DAILY tab 06/02/24 Spironolactone [Aldactone] 25 mg PO DAILY #30 tab 06/02/24 Azithromycin [Zithromax Z Pack] 1 tab PO DIRECTED #6 tab 07/09/24 Allergies Allergy/AdvReac Type Severity Reaction Status Date / Time morphine Allergy Nausea & Verified 07/09/24 06:40 Vomiting Review of Systems ROS Statement: Those systems with pertinent positive or pertinent negative responses have been documented in the HPI. ROS Other: All systems not noted in ROS Statement are negative. Past Medical History Past Medical History: Heart Failure, COPD Additional Past Medical History / Comment(s): aortic aneurysm,gout, whole repaired esophagus History of Any Multi-Drug Resistant Organisms: None Reported Past Surgical History: Coronary Bypass/CABG, Hernia Repair, Pacemaker Additional Past Surgical History / Comment(s): pacemaker, aortic aneurysm repair, 5 vessel bypass Past Anesthesia/Blood Transfusion Reactions: No Reported Reaction Type of Cardiac Device: Permanent Pacemaker Device Placement Date:: 2014 Past Psychological History: No Psychological Hx Reported Smoking Status: Former smoker Past Alcohol Use History: Occasional Past Drug Use History: None Reported - Past Family History Sister(s) Family Medical History: Cancer Additional Family Medical History / Comment(s): x 3 sisters General Exam - General Exam Comments Initial Comments: Physical Exam GENERAL: Patient is well-developed and well-nourished. Patient is nontoxic and well-hydrated and is in no distress. HENT: Normocephalic, Atraumatic. EYES: PERRL, EOMI PULMONARY: Unlabored respirations. No audible rales rhonchi or wheezing was noted. Sternotomy scar noted CARDIOVASCULAR: Pacemaker in left upper chest ABDOMEN: Large incisional hernia in the midline SKIN: Skin is clear with no lesions or rashes and otherwise unremarkable. : Deferred NEUROLOGIC: Patient is alert and oriented x3. Moving all extremities spontaneously MUSCULOSKELETAL: Normal extremities with adequate strength and full range of motion. No lower extremity swelling or edema. No calf tenderness. PSYCHIATRIC: Normal psychiatric evaluation. Course Vital Signs 07/09/24 07/09/24 06:35 07:37 Temperature 97.7 F 98.1 F Pulse Rate 76 60 Respiratory 22 16 Rate Blood Pressure 156/91 130/74 O2 Sat by Pulse 96 94 L Oximetry EKG Findings - EKG Comments: EKG Findings:: EG obtained due to complaint of shortness of breath EKG obtained at 6:37 AM rate is 84 rhythm is electronic ventricular paced, QRS [address] elevations or depressions no evidence of ischemia or infarction. Medical Decision Making - Medical Decision Making Was pt. sent in by a medical professional or institution (OLGA Lobo, DIVISION HUMAN RESOURCES MANAGER, urgent care, hospital, or half-way...) When possible be specific @ -No Did you speak to anyone other than the patient for history (EMS, parent, family, police, friend...)? What history was obtained from this source @ - at bedside Did you review nursing and triage notes (agree or disagree)? Why? @ -I reviewed and agree with nursing and triage notes Were old charts reviewed (outside hosp., previous admission, EMS record, old EKG, old radiological studies, urgent care reports/EKG's, half-way records)? Report findings @ -Labs and chest x-rays were reviewed Differential Diagnosis (chest pain, altered mental status, abdominal pain women, abdominal pain men, vaginal bleeding, weakness, fever, dyspnea, syncope, headache, dizziness, GI bleed, back pain, seizure, CVA, palpatations, mental health)? @ -Differential dyspnea EKG interpreted by me (3pts min.). @ -As above X-rays interpreted by me (1pt min.). @ -Probably with changes consistent with CABG, right lower lobe infiltrate maker in place CT interpreted by me (1pt min.). @ -None done U/S interpreted by me (1pt. min.). @ -None done What testing was considered but not performed or refused? (CT, X-rays, U/S, la bs)? Why? @ -None What meds were considered but not given or refused? Why? @ -None Did you discuss the management of the patient with other professionals (professionals i.e. OLGA Lobo, DIVISION HUMAN RESOURCES MANAGER, lab, RT, psych nurse, psychosocial rehabilitation counselor, mat inspector, teacher, military source operations officer, sample case porter)? Give summary @ -No Was smoking cessation discussed for >3mins.? @ -No Was critical care preformed (if so, how long)? @ -No Were there social determinants of health that impacted care today? How? (Homelessness, low income, unemployed, alcoholism, drug addiction, transportation, low edu. Level, literacy, decrease access to med. care, snf, rehab)? @ -No Was there de-escalation of care discussed even if they declined (Discuss DNR or withdrawal of care, Hospice)? DNR status @ -No What co-morbidities impacted this encounter? (DM, HTN, Smoking, COPD, CAD, Cancer, CVA, ARF, Chemo, Hep., AIDS, mental health diagnosis, sleep apnea, morbid obesity)? @ -COPD, CHF Was patient admitted / discharged? Hospital course, mention meds given and route, prescriptions, significant lab abnormalities, going to OR and other pertinent info. @ -Discharged Was seen and evaluated, patient is hemodynamically stable complaining of a cough since last night. Patient is a former smoker with COPD. No wheezing on exam. Viral swabs, chest x-ray and CBC CMP were obtained given his history of CHF and BNP was obtained. BNP is mildly elevated but acutely decreased from previous. CBC and CMP are at baseline for the patient. Viral swabs were negative. Chest x-ray concerning for possible early infiltrate and small pleural effusion. Given the patient's symptoms and the early infiltrate we will place patient on antibiotics he was given azithromycin and Rocephin here in the ER will be discharged home with azithromycin and close return parameters. Undiagnosed new problem with uncertain prognosis? @ -No Drug Therapy requiring intensive monitoring for toxicity (Heparin, Nitro, Insulin, Cardizem)? @ -No Were any procedures done? @ -No Diagnosis/symptom? @ -Pneumonia Acute, or Chronic, or Acute on Chronic? @ -Acute Uncomplicated (without systemic symptoms) or Complicated (systemic symptoms)? @ -Default Side effects of treatment? @ -No Exacerbation, Progression, or Severe Exacerbation? @ -No Poses a threat to life or bodily function? How? (Chest pain, USA, [place], pneumonia, PE, COPD, DKA, ARF, appy, cholecystitis, CVA, Diverticulitis, Homicidal, Suicidal, threat to staff... and all critical care pts) @ -No - Lab Data Result diagrams: 07/09/24 06:43 07/09/24 06:43 Lab Results 07/09/24 07/09/24 07/09/24 Range/Units 06:42 06:43 06:43 WBC 11.6 H (3.8-10.6) k/uL RBC 6.05 H (4.30-5.90) m/uL Hgb 14.9 (13.0-17.5) gm/dL Hct 48.1 (39.0-53.0) % MCV 79.4 L (80.0-100.0) fL MCH 24.6 L (25.0-35.0) pg MCHC 31.0 (31.0-37.0) g/dL RDW 16.8 H (11.5-15.5) % Plt Count 342 (150-450) k/uL MPV 7.9 Neutrophils % 79 % Lymphocytes % 11 % Monocytes % 5 % Eosinophils % 3 % Basophils % 1 % Neutrophils # 9.2 H (1.3-7.7) k/uL Lymphocytes # 1.2 (1.0-4.8) k/uL Monocytes # 0.6 (0-1.0) k/uL Eosinophils # 0.4 (0-0.7) k/uL Basophils # 0.1 (0-0.2) k/uL Hypochromasia Moderate Anisocytosis Slight Microcytosis Slight PT 13.6 H (10.0-12.5) sec INR 1.3 H (<1.2) APTT 27.8 (22.0-30.0) sec Sodium (137-145) mmol/L Potassium (3.5-5.1) mmol/L Chloride (98-107) mmol/L Carbon Dioxide (22-30) mmol/L Anion Gap mmol/L BUN (9-20) mg/dL Creatinine (0.66-1.25) mg/dL Est GFR (CKD-EPI)AfAm (>60 ml/min/1.73 sqM) Est GFR (CKD-EPI)NonAf (>60 ml/min/1.73 sqM) Glucose (74-99) mg/dL Calcium (8.4-10.2) mg/dL Total Bilirubin (0.2-1.3) mg/dL AST (17-59) U/L ALT (4-49) U/L Alkaline Phosphatase (38-126) U/L Troponin I (0.000-0.034) ng/mL NT-Pro-B Natriuret Pep pg/mL Total Protein (6.3-8.2) g/dL Albumin (3.5-5.0) g/dL Influenza Type A (PCR) Not Detected (Not Detectd) Influenza Type B (PCR) Not Detected (Not Detectd) RSV (PCR) Not Detected (Not Detectd) SARS-CoV-2 (PCR) Not Detected (Not Detectd) 07/09/24 07/09/24 Range/Units 06:43 06:43 WBC (3.8-10.6) k/uL RBC (4.30-5.90) m/uL Hgb (13.0-17.5) gm/dL Hct (39.0-53.0) % MCV (80.0-100.0) fL MCH (25.0-35.0) pg MCHC (31.0-37.0) g/dL RDW (11.5-15.5) % Plt Count (150-450) k/uL MPV Neutrophils % % Lymphocytes % % Monocytes % % Eosinophils % % Basophils % % Neutrophils # (1.3-7.7) k/uL Lymphocytes # (1.0-4.8) k/uL Monocytes # (0-1.0) k/uL Eosinophils # (0-0.7) k/uL Basophils # (0-0.2) k/uL Hypochromasia Anisocytosis Microcytosis PT (10.0-12.5) sec INR (<1.2) APTT (22.0-30.0) sec Sodium 136 L (137-145) mmol/L Potassium 4.4 (3.5-5.1) mmol/L Chloride 101 (98-107) mmol/L Carbon Dioxide 24 (22-30) mmol/L Anion Gap 11 mmol/L BUN 33 H (9-20) mg/dL Creatinine 1.30 H (0.66-1.25) mg/dL Est GFR (CKD-EPI)AfAm 58 (>60 ml/min/1.73 sqM) Est GFR (CKD-EPI)NonAf 50 (>60 ml/min/1.73 sqM) Glucose 96 (74-99) mg/dL Calcium 9.1 (8.4-10.2) mg/dL Total Bilirubin 1.6 H (0.2-1.3) mg/dL AST 45 (17-59) U/L ALT 48 (4-49) U/L Alkaline Phosphatase 164 H (38-126) U/L Troponin I 0.020 (0.000-0.034) ng/mL NT-Pro-B Natriuret Pep 3390 pg/mL Total Protein 7.2 (6.3-8.2) g/dL Albumin 4.3 (3.5-5.0) g/dL Influenza Type A (PCR) (Not Detectd) Influenza Type B (PCR) (Not Detectd) RSV (PCR) (Not Detectd) SARS-CoV-2 (PCR) (Not Detectd) Disposition Clinical Impression: Pneumonia Disposition: HOME SELF-CARE Condition: Stable Prescriptions: Azithromycin [Zithromax Z Pack] 1 tab PO DIRECTED #6 tab Is patient prescribed a controlled substance at d/c from ED?: No Referrals: Seth Rey DO [Primary Care Provider] - 1-2 days
[2024-07-09 07:00] LABS: Anisocytosis Slight; Basophils # (A) 0.1 k/uL (0-0.2); Basophils % (A) 1 %; Eosinophils # (A) 0.4 k/uL (0-0.7); Eosinophils % (A) 3 %; HCT 48.1 % (39.0-53.0); HGB 14.9 gm/dL (13.0-17.5); Hypochromasia Moderate; Lymphocytes # (A) 1.2 k/uL (1.0-4.8); Lymphocytes % (A) 11 %; MCH 24.6 pg (25.0-35.0); MCV 79.4 fL (80.0-100.0); Mean Platelet Volume 7.9; Microcytosis Slight; Monocytes # (A) 0.6 k/uL (0-1.0); Monocytes % (A) 5 %; Neutrophils # (A) 9.2 k/uL (1.3-7.7); Neutrophils % (A) 79 %; Platelet Count 342 k/uL (150-450); RBC 6.05 m/uL (4.30-5.90); RDW 16.8 % (11.5-15.5); WBC 11.6 k/uL (3.8-10.6)
--- NOTE | 2024-07-09 07:09 | XR ---
EXAMINATION TYPE: XR chest 1V DATE OF EXAM: 07/09/2024 COMPARISON: 06-24 CLINICAL INDICATION: Male, 83 years old with shortness of breath, history of difficulty breathing; TECHNIQUE: Single frontal view of the chest is obtained. FINDINGS: Median sternotomy wires and post-CABG clips. Heart mild to moderately enlarged. Diffuse interstitial density. Small left pleural effusion with patchy left basilar opacity remains. Left anterior chest wa ll pacemaker generator with right atrial and right ventricular leads. Old left-sided rib fracture def ormities. IMPRESSION: COPD with superimposed CHF with pulmonary vascular congestion. Small left pleural effusi on with adjacent atelectasis and/or consolidation. [facility], Workstation: [facility], 07/09/2024 7:07 AM
[2024-07-09 07:20] LABS: ALT 48 U/L (4-49); African American GFR (CKD) 58 (>60 ml/min/1.73 sqM); Albumin 4.3 g/dL (3.5-5.0); Anion Gap 11 mmol/L; Blood Urea Nitrogen 33 mg/dL (9-20); Calcium 9.1 mg/dL (8.4-10.2); Carbon Dioxide 24 mmol/L (22-30); Chloride 101 mmol/L (98-107); Glucose 96 mg/dL (74-99); Non-African American GFR(CKD) 50 (>60 ml/min/1.73 sqM); Sodium 136 mmol/L (137-145); Total Bilirubin 1.6 mg/dL (0.2-1.3); Total Protein 7.2 g/dL (6.3-8.2)
[2024-07-09 07:22] LABS: AST 45 U/L (17-59); Alkaline Phosphatase 164 U/L (38-126); Potassium 4.4 mmol/L (3.5-5.1)
[2024-07-09 07:27] LABS: NT-Pro-B-Type Natriuretic Pept 3390 pg/mL
[2024-07-09 07:28] LABS: INR 1.3 (<1.2); Partial Thromboplastin Time 27.8 sec (22.0-30.0); Prothrombin Time 13.6 sec (10.0-12.5)
[2024-07-09 07:39] VITALS: PULSE 60
[2024-07-09] MEDS: cefTRIAXone IN SWFI 1,000 MG/10 ML SYRINGE IVP STA (08:21)
[2024-07-09] MEDS: AZITHROMYCIN 500 MG in SODIUM CHLORIDE 0.9% 250 ML IVPB STA (08:23)
[2024-07-09 10:00] VITALS: BP 120/68; RESP 18; TEMP 98.3
== END 2024-07-09 10:10 | disposition home or self-care (01) ==
LOC: EC 06:33
DX: J18.9 Pneumonia, unspecified organism (principal); I50.9 Heart failure, unspecified; J44.0 Chronic obstructive pulmonary disease with (acute) lower respiratory infection; Z87.891 Personal history of nicotine dependence; Z88.5 Allergy status to narcotic agent
CPT/HCPCS: 36415; 93005; 83880; 80053; 84484; 85025; 85610; 85730; 87636; 71045; 99285; 96365; 96375; J0456; J0696

== ENCOUNTER 2024-09-09 09:44 | Inpatient (IN) | payer MEDICARE, BC ==
--- NOTE | 2024-09-09 10:02 | ED ---
General Adult HPI - General Chief complaint: Chest Pain Stated complaint: Chest pain Time Seen by Provider: 09/09/24 09:50 Source: patient, RN notes reviewed, old records reviewed Mode of arrival: ambulatory Limitations: no limitations - History of Present Illness Initial comments: This is an 84-year-old male who presents to the emergency department stating he has a past medical she significant for bypass surgery high blood pressure and high cholesterol. Patient also has a pacemaker in place. Patient comes in stating that on the weekend he started having some difficulty breathing yesterday started having some chest tightness and today the tightness got worse so he decided come to the emergency department. Patient also states that his shortness of breath is gotten worse as well. Patient denies any recent fever chills or cough. Patient states he has been feeling weaker over the last couple of days. Patient denies any nausea vomiting diarrhea. Patient denies abdominal pain. Patient [place] any back pain. Patient denies headache patient denies numbness or weakness. - Related Data Home Medications Medication Instructions Recorded Confirmed ALPRAZolam [Xanax] 0.5 mg PO HS 08/30/15 05/31/24 Multivitamins, Thera [Multivitamin 1 tab PO DAILY 08/30/15 05/31/24 (formulary)] Furosemide [Lasix] 40 mg PO DAILY 11/30/17 05/31/24 Rivaroxaban [Xarelto] 15 mg PO DAILY 10/17/19 05/31/24 Tamsulosin [Flomax] 0.4 mg PO HS 05/08/22 05/31/24 Aspirin EC [Ecotrin Low Dose] 81 mg PO DAILY 05/31/24 05/31/24 Atorvastatin [Lipitor] 40 mg PO W/SUPPER 05/31/24 05/31/24 Ipratropium-Albuterol Nebulize 3 ml INHALATION RT-QID PRN 05/31/24 05/31/24 [Duoneb 0.5 mg-3 mg/3 ml Soln] Isosorbide Mononitrate ER [Imdur] 30 mg PO DAILY 05/31/24 05/31/24 allopurinoL [Zyloprim] 100 mg PO DAILY 05/31/24 05/31/24 carvediloL [Coreg] 6.25 mg PO BID-W/MEALS 05/31/24 05/31/24 Previous Rx's Medication Instructions Recorded Dapagliflozin Propanediol [Farxiga] 10 mg PO DAILY #30 tab 06/02/24 Losartan [Cozaar] 25 mg PO DAILY tab 06/02/24 Spironolactone [Aldactone] 25 mg PO DAILY #30 tab 06/02/24 Azithromycin [Zithromax Z Pack] 1 tab PO DIRECTED #6 tab 07/09/24 Allergies Allergy/AdvReac Type Severity Reaction Status Date / Time morphine Allergy Nausea & Verified 09/09/24 09:50 Vomiting Review of Systems ROS Statement: Those systems with pertinent positive or pertinent negative responses have been documented in the HPI. ROS Other: All systems not noted in ROS Statement are negative. Past Medical History Past Medical History: Heart Failure, COPD Additional Past Medical History / Comment(s): aortic aneurysm,gout, whole repaired esophagus History of Any Multi-Drug Resistant Organisms: None Reported Past Surgical History: Coronary Bypass/CABG, Hernia Repair, Pacemaker Additional Past Surgical History / Comment(s): pacemaker, aortic aneurysm repair, 5 vessel bypass Past Anesthesia/Blood Transfusion Reactions: No Reported Reaction Type of Cardiac Device: Permanent Pacemaker Device Placement Date:: 2014 Past Psychological History: No Psychological Hx Reported Smoking Status: Former smoker Past Alcohol Use History: Occasional Past Drug Use History: None Reported - Past Family History Sister(s) Family Medical History: Cancer Additional Family Medical History / Comment(s): x 3 sisters General Exam - General Exam Comments Initial Comments: GENERAL: Patient is well-developed and well-nourished. Patient is nontoxic and well- hydrated and is in mild distress. ENT: Neck is soft and supple. No significant lymphadenopathy is noted. Oropharynx is clear. Moist mucous membranes. Neck has full range of motion without eliciting any pain. EYES: The sclera were anicteric and conjunctiva were pink and moist. Extraocular movements were intact and pupils were equal round and reactive to light. Eyelids were unremarkable. PULMONARY: Unlabored respirations. Good breath sounds bilaterally. No audible rales rhonchi or wheezing was noted. CARDIOVASCULAR: There is a regular rate and rhythm without any murmurs gallops or rubs. ABDOMEN: Soft and nontender with normal bowel sounds. SKIN: Skin is clear with no lesions or rashes and otherwise unremarkable. NEUROLOGIC: Patient is alert and oriented x3. Cranial nerves II through XII are grossly intact. Motor and sensory are also intact. Normal speech, volume and content. Symmetrical smile. MUSCULOSKELETAL: Normal extremities with adequate strength and full range of motion. LYMPHATICS: No significant lymphadenopathy is noted PSYCHIATRIC: Normal psychiatric evaluation. Limitations: no limitations Course Vital Signs 09/09/24 09/09/24 09:45 09:49 Temperature 97.5 F L Pulse Rate 86 63 Respiratory 18 18 Rate Blood Pressure 150/83 148/91 O2 Sat by Pulse 97 96 Oximetry Medical Decision Making - Medical Decision Making EKG is interpreted by myself. EKG shows a paced rhythm at 78 bpm QRS 184 QT interval is 420 QTc is 462. Was pt. sent in by a medical professional or institution (, PA, SHIRT OPERATOR, urgent care, hospital, or [facility]...) When possible be specific @ -No Did you speak to anyone other than the patient for history (EMS, parent, family, police, friend...)? What history was obtained from this source @ -No Did you review nursing and triage notes (agree or disagree)? Why? @ -I reviewed and agree with nursing and triage notes Were old charts reviewed (outside hosp., previous admission, EMS record, old EKG, old radiological studies, urgent care reports/EKG's, [facility] records)? Report findings @ -No old charts were reviewed Differential Diagnosis? @ -Differential Chest Pain: Stable Angina, Unstable Angina, STEMI, NSTEMI Aortic Dissection, Pneumothorax, Musculoskeletal, Esophageal Spasm GERD, Cholecystitis, Pancreatitis, Zoster, this is not meant to be an all-inclusive list. EKG interpreted by me (3pts min.). @ -As above X-rays interpreted by me (1pt min.). @ -Chest x-ray shows no acute abnormality CT interpreted by me (1pt min.). @ -None done U/S interpreted by me (1pt. min.). @ -None done What testing was considered but not performed or refused? (CT, X-rays, U/S, labs)? Why? @ -None What meds were considered but not given or refused? Why? @ -None Did you discuss the management of the patient with other professionals (professionals i.e. , PA, SHIRT OPERATOR, lab, RT, psych nurse, clinical social work aide, crank hand, teacher, staff readiness officer, immigration case worker)? Give summary @ -I spoke with Dr. Holden he agreed to admit the patient admitted patient wrote admitting orders Was smoking cessation discussed for >3mins.? @ -No Was critical care preformed (if so, how long)? @ -No Were there social determinants of health that impacted care today? How? (Homelessness, low income, unemployed, alcoholism, drug addiction, transportation, low edu. Level, literacy, decrease access to med. care, retirement, rehab)? @ -No Was there de-escalation of care discussed even if they declined (Discuss DNR or withdrawal of care, Hospice)? DNR status @ -No What co-morbidities impacted this encounter? (DM, HTN, Smoking, COPD, CAD, Cancer, CVA, ARF, Chemo, Hep., AIDS, mental health diagnosis, sleep apnea, morbid obesity)? @ -None Was patient admitted / discharged? Hospital course, mention meds given and route, prescriptions, significant lab abnormalities, going to OR and other pertinent info. @ -Patient continued to experience chest discomfort while in the emergency department. Lab work came back normal x-ray was normal. Patient will be admitted to Dr. Holden for chest pain and consult will be placed for cardiology Undiagnosed new problem with uncertain prognosis? @ -No Drug Therapy requiring intensive monitoring for toxicity (Heparin, Nitro, Ins ulin, Cardizem)? @ -No Were any procedures done? @ -No Diagnosis/symptom? @ -Chest pain Acute, or Chronic, or Acute on Chronic? @ -Acute Uncomplicated (without systemic symptoms) or Complicated (systemic symptoms)? @ -Complicated Side effects of treatment? @ -No Exacerbation, Progression, or Severe Exacerbation? @ -No Poses a threat to life or bodily function? How? (Chest pain, USA, MT, pneumonia, PE, COPD, DKA, ARF, appy, cholecystitis, CVA, Diverticulitis, Homicidal, Suicidal, threat to staff... and all critical care pts) @ -Yes this can lead to an MT and endorgan dysfunction - Lab Data Result diagrams: 09/09/24 10:24 09/09/24 10:24 Lab Results 09/09/24 09/09/24 09/09/24 Range/Units 10:24 10:24 10:24 WBC 9.9 (3.8-10.6) k/uL RBC 6.28 H (4.30-5.90) m/uL Hgb 15.1 (13.0-17.5) gm/dL Hct 50.2 (39.0-53.0) % MCV 80.0 (80.0-100.0) fL MCH 24.1 L (25.0-35.0) pg MCHC 30.1 L (31.0-37.0) g/dL RDW 18.0 H (11.5-15.5) % Plt Count 370 (150-450) k/uL MPV 8.2 Neutrophils % 76 % Lymphocytes % 13 % Monocytes % 6 % Eosinophils % 2 % Basophils % 1 % Neutrophils # 7.6 (1.3-7.7) k/uL Lymphocytes # 1.3 (1.0-4.8) k/uL Monocytes # 0.6 (0-1.0) k/uL Eosinophils # 0.2 (0-0.7) k/uL Basophils # 0.1 (0-0.2) k/uL Hypochromasia Marked Anisocytosis Slight Microcytosis Slight PT 14.4 H (10.0-12.5) sec INR 1.4 H (<1.2) APTT 28.2 (22.0-30.0) sec Sodium 140 (137-145) mmol/L Potassium 4.5 (3.5-5.1) mmol/L Chloride 101 (98-107) mmol/L Carbon Dioxide 29 (22-30) mmol/L Anion Gap 10 mmol/L BUN 34 H (9-20) mg/dL Creatinine 1.37 H (0.66-1.25) mg/dL Est GFR (CKD-EPI)AfAm 54 (>60 ml/min/1.73 sqM) Est GFR (CKD-EPI)NonAf 46 (>60 ml/min/1.73 sqM) Glucose 100 H (74-99) mg/dL Calcium 9.3 (8.4-10.2) mg/dL Magnesium 2.1 (1.6-2.3) mg/dL Total Bilirubin 1.4 H (0.2-1.3) mg/dL AST 43 (17-59) U/L ALT 39 (4-49) U/L Alkaline Phosphatase 246 H (38-126) U/L Troponin I (0.000-0.034) ng/mL Total Protein 7.4 (6.3-8.2) g/dL Albumin 4.1 (3.5-5.0) g/dL Influenza Type A (PCR) (Not Detectd) Influenza Type B (PCR) (Not Detectd) RSV (PCR) (Not Detectd) SARS-CoV-2 (PCR) (Not Detectd) 09/09/24 09/09/24 Range/Units 10:24 10:24 WBC (3.8-10.6) k/uL RBC (4.30-5.90) m/uL Hgb (13.0-17.5) gm/dL Hct (39.0-53.0) % MCV (80.0-100.0) fL MCH (25.0-35.0) pg MCHC (31.0-37.0) g/dL RDW (11.5-15.5) % Plt Count (150-450) k/uL MPV Neutrophils % % Lymphocytes % % Monocytes % % Eosinophils % % Basophils % % Neutrophils # (1.3-7.7) k/uL Lymphocytes # (1.0-4.8) k/uL Monocytes # (0-1.0) k/uL Eosinophils # (0-0.7) k/uL Basophils # (0-0.2) k/uL Hypochromasia Anisocytosis Microcytosis PT (10.0-12.5) sec INR (<1.2) APTT (22.0-30.0) sec Sodium (137-145) mmol/L Potassium (3.5-5.1) mmol/L Chloride (98-107) mmol/L Carbon Dioxide (22-30) mmol/L Anion Gap mmol/L BUN (9-20) mg/dL Creatinine (0.66-1.25) mg/dL Est GFR (CKD-EPI)AfAm (>60 ml/min/1.73 sqM) Est GFR (CKD-EPI)NonAf (>60 ml/min/1.73 sqM) Glucose (74-99) mg/dL Calcium (8.4-10.2) mg/dL Magnesium (1.6-2.3) mg/dL Total Bilirubin (0.2-1.3) mg/dL AST (17-59) U/L ALT (4-49) U/L Alkaline Phosphatase (38-126) U/L Troponin I 0.014 (0.000-0.034) ng/mL Total Protein (6.3-8.2) g/dL Albumin (3.5-5.0) g/dL Influenza Type A (PCR) Not Detected (Not Detectd) Influenza Type B (PCR) Not Detected (Not Detectd) RSV (PCR) Not Detected (Not Detectd) SARS-CoV-2 (PCR) Not Detected (Not Detectd) Disposition Clinical Impression: Chest pain Disposition: ADMITTED IP TO THIS HOSP Referrals: Seth Rey DO [Primary Care Provider] - 1-2 days Time of Disposition: 11:40
[2024-09-09] MEDS: NITROGLYCERIN OINT 1 INCH/GM PACKET TOPICAL STA (10:25)
[2024-09-09] MEDS: SODIUM CHLORIDE 0.9% 500 ML 500 ML IV STA (10:25)
[2024-09-09] MEDS: ASPIRIN 81 MG PO STA (10:25)
[2024-09-09 10:36] LABS: Anisocytosis Slight; Basophils # (A) 0.1 k/uL (0-0.2); Basophils % (A) 1 %; Eosinophils # (A) 0.2 k/uL (0-0.7); Eosinophils % (A) 2 %; HCT 50.2 % (39.0-53.0); HGB 15.1 gm/dL (13.0-17.5); Hypochromasia Marked; Lymphocytes # (A) 1.3 k/uL (1.0-4.8); Lymphocytes % (A) 13 %; MCH 24.1 pg (25.0-35.0); MCHC 30.1 g/dL (31.0-37.0); Mean Platelet Volume 8.2; Microcytosis Slight; Monocytes # (A) 0.6 k/uL (0-1.0); Monocytes % (A) 6 %; Neutrophils # (A) 7.6 k/uL (1.3-7.7); Neutrophils % (A) 76 %; Platelet Count 370 k/uL (150-450); RBC 6.28 m/uL (4.30-5.90); WBC 9.9 k/uL (3.8-10.6)
[2024-09-09 10:45] LABS: ALT 39 U/L (4-49); AST 43 U/L (17-59); African American GFR (CKD) 54 (>60 ml/min/1.73 sqM); Albumin 4.1 g/dL (3.5-5.0); Alkaline Phosphatase 246 U/L (38-126); Anion Gap 10 mmol/L; Blood Urea Nitrogen 34 mg/dL (9-20); Calcium 9.3 mg/dL (8.4-10.2); Carbon Dioxide 29 mmol/L (22-30); Chloride 101 mmol/L (98-107); Glucose 100 mg/dL (74-99); Magnesium 2.1 mg/dL (1.6-2.3); Non-African American GFR(CKD) 46 (>60 ml/min/1.73 sqM); Potassium 4.5 mmol/L (3.5-5.1); Sodium 140 mmol/L (137-145); Total Bilirubin 1.4 mg/dL (0.2-1.3); Total Protein 7.4 g/dL (6.3-8.2)
--- NOTE | 2024-09-09 11:00 | XR ---
EXAMINATION TYPE: XR chest 2V DATE OF EXAM: 09/09/2024 CLINICAL INDICATION: Male, 84 years old with history of Chest Pain, TECHNIQUE: Frontal and lateral views of the chest are obtained. COMPARISON: Chest x-ray July 09, 2024 FINDINGS: Overlying sternal wires and mediastinal clips are redemonstrated. Suspect underlying emphys ematous change. Persistent cardiomegaly with dual lead pacemaker and small left pleural effusion is a gain seen. Right lung remains clear. The osseous structures remain demineralized. IMPRESSION: Chronic changes and cardiomegaly with small left pleural effusion. No new acute pulmonary process. No significant change from most recent study. [facility], , 09/09/2024 10:57 AM
[2024-09-09 11:04] LABS: INR 1.4 (<1.2); Partial Thromboplastin Time 28.2 sec (22.0-30.0); Prothrombin Time 14.4 sec (10.0-12.5)
[2024-09-09 11:07] LABS: Influenza A Not Detected (Not Detectd); Influenza B Not Detected (Not Detectd); RSV Not Detected (Not Detectd)
[2024-09-09] MEDS ORDERED: NITROGLYCERIN SL TABS 0.4 MG TAB SUBLINGUAL PRN (11:40)
[2024-09-09] MEDS: NITROGLYCERIN OINT 1 INCH/GM PACKET TOPICAL SCH (11:52)
[2024-09-09] MEDS ORDERED: LACTULOSE 20 GM/30 ML CUP PO PRN (16:08)
[2024-09-09] MEDS ORDERED: NALOXONE 0.4 MG/ML 1 ML VIAL IV PRN (16:08)
[2024-09-09] MEDS ORDERED: ONDANSETRON 4 MG/2 ML VIAL IVP PRN (16:08)
[2024-09-09] MEDS: ATORVASTATIN 40 MG TAB PO SCH (17:51)
[2024-09-09] MEDS: carvediloL 6.25 MG TAB PO SCH (17:52)
--- NOTE | 2024-09-09 19:43 | P.HPIM ---
History of Present Illness H&P Date: 09/09/24 Chief Complaint: Chest tightness Pleasant 84-year-old patient who follows with Dr. Rey. Chronic medical conditions include aortic aneurysm, gout, coronary bypass, pacemaker. Patient presents with chest tightness off and on to his family doctor. Yesterday. Told him to come in. Also get a bit short of breath. Little phlegm. No fever no chills. Has a pacemaker. Has not had a stress test in the recent past. Normally able to walk a fair distance on his own pace. Review of systems: GEN.: None EYES: None HEENT: Decreased hearing e NECK: None RESPIRATORY: As above CARDIOVASCULAR: As above GASTROINTESTINAL: None GENITOURINARY: None MUSCULOSKELETAL: None LYMPHATICS: None HEMATOLOGICAL: None PSYCHIATRY: None NEUROLOGICAL: None Social history: Lives alone. Stopped smoking in 1983. Started the age of 58 less than a pack a day. Alcohol occasionally. Used to work in a [employer] shop Physical examination: VITAL SIGNS: [97.7, 80, 16, 173 x 92, 96% room air GENERAL: BMI 21.8, lying bed awake not in distress EYES: Pupils equal. Conjunctiva karolina l. HEENT: External appearance of nose and ears normal, oral cavity grossly normal. NECK: JVD not raised; masses not palpable. HEART: First and second heart sounds are normal; no edema. LUNGS: Respiratory rate normal; decreased breath sounds. ABDOMEN: Soft, nontender, liver spleen not palpable, no masses palpable. PSYCH: Alert and oriented x3; mood and affect karolina l. MUSCULOSKELETAL:No Clubbing/cyanosis;muscles-grossly intact NEUROLOGICAL: Cranial nerves grossly intact; no facial asymmetry, power and sensation grossly intact. LYMPHATICS: No lymph nodes palpable in the axilla and neck INVESTIGATIONS, reviewed in the clinical context: September 09, 2024: White count 9.9 hemoglobin 15.1 platelets 370 sodium 140 potassium 4.5 BUN 34 creatinine 1.37 Troponin I 0.014, 0.016, 0.017 Influenza type A, type B, RSV, SARS-CoV-2: Not detected EKG tracing personally reviewed by me-ventricular paced rhythm Chest x-ray film personally reviewed by me-pacemaker. Some hyperinflation Assessment plan: -Anterior chest wall tightness off-and-on. With the patient known CAD with a prior bypass: Possible unstable angina Negative troponin. Telemetry. Cardiology consulted. Will keep n.p.o. after midnight except medications -Chronic CHF exacerbation,, systolic dysfunction EF 40 to 45%. Aldactone. Cozaar. Farxiga. Lasix -Moderate mitral, mild to moderate tricuspid regurgitation -COPD in a prior smoker DuoNeb 3 times daily -Coronary artery disease status post CABG Coreg. Aspirin -BPH Flomax -GERD Prilosec -Chronic kidney disease . Stage III. Likely nephrosclerosis. Follow labs outpatient. -Full code Past Medical History Past Medical History: Heart Failure, COPD Additional Past Medical History / Comment(s): aortic aneurysm,gout, whole repaired esophagus History of Any Multi-Drug Resistant Organisms: None Reported Past Surgical History: Coronary Bypass/CABG, Hernia Repair, Pacemaker Additional Past Surgical History / Comment(s): pacemaker, aortic aneurysm repair, 5 vessel bypass Past Anesthesia/Blood Transfusion Reactions: No Reported Reaction Type of Cardiac Device: Permanent Pacemaker Device Placement Date:: 2014 Past Psychological History: No Psychological Hx Reported Smoking Status: Former smoker Past Alcohol Use History: Occasional Additional Past Alcohol Use History / Comment(s): quit 1983 starting smoking age 14 <1ppd Past Drug Use History: None Reported - Past Family History Sister(s) Family Medical History: Cancer Additional Family Medical History / Comment(s): x 3 sisters Medications and Allergies Home Medications Medication Instructions Recorded Confirmed Type ALPRAZolam [Xanax] 0.5 mg PO HS 08/30/15 09/09/24 History Multivitamins, Thera [Multivitamin 1 tab PO DAILY 08/30/15 09/09/24 History (formulary)] Rivaroxaban [Xarelto] 15 mg PO DAILY 10/17/19 09/09/24 History Tamsulosin [Flomax] 0.4 mg PO HS 05/08/22 09/09/24 History Aspirin EC [Ecotrin Low Dose] 81 mg PO DAILY 05/31/24 09/09/24 History Atorvastatin [Lipitor] 40 mg PO W/SUPPER 05/31/24 09/09/24 History Isosorbide Mononitrate ER [Imdur] 30 mg PO DAILY 05/31/24 09/09/24 History carvediloL [Coreg] 6.25 mg PO BID-W/MEALS 05/31/24 09/09/24 History Dapagliflozin Propanediol [Farxiga] 10 mg PO DAILY #30 tab 06/02/24 09/09/24 Rx Losartan [Cozaar] 25 mg PO DAILY tab 06/02/24 09/09/24 Rx Furosemide [Lasix] 40 mg PO DAILY 09/09/24 09/09/24 History Omeprazole [PriLOSEC] 40 mg PO DAILY 09/09/24 09/09/24 History Oxybutynin Chloride [oxyBUTYnin 10 mg PO HS 09/09/24 09/09/24 History chloride ER] Vitamin C (Unknown Dose) 1 tab PO HS 09/09/24 09/09/24 History Vitamin D (Unknown Dose) 1 cap PO W/SUPPER 09/09/24 09/09/24 History Allergies Allergy/AdvReac Type Severity Reaction Status Date / Time morphine Allergy Nausea & Verified 09/09/24 11:57 Vomiting Physical Exam Vitals: Vital Signs Temp Pulse Pulse Resp BP BP Pulse Ox 09/09/24 16:20 97.7 F 80 16 173/92 96 09/09/24 16:08 62 18 143/87 97 09/09/24 13:07 97.8 F 60 18 156/81 98 09/09/24 09:49 63 18 148/91 96 09/09/24 09:45 97.5 F L 86 18 150/83 97 Intake and Output 09/09/24 09/09/24 09/09/24 06:59 14:59 22:59 Intake Total 240 Balance 240 Intake: Oral 240 Other: Weight 68.946 kg 68.946 kg Results CBC & Chem 7: 09/09/24 10:24 09/09/24 10:24 Labs: Abnormal Lab Results - Last 24 Hours (Table) 09/09/24 09/09/24 09/09/24 Range/Units 10:24 10:24 10:24 RBC 6.28 H (4.30-5.90) m/uL MCH 24.1 L (25.0-35.0) pg MCHC 30.1 L (31.0-37.0) g/dL RDW 18.0 H (11.5-15.5) % PT 14.4 H (10.0-12.5) sec INR 1.4 H (<1.2) BUN 34 H (9-20) mg/dL Creatinine 1.37 H (0.66-1.25) mg/dL Glucose 100 H (74-99) mg/dL Total Bilirubin 1.4 H (0.2-1.3) mg/dL Alkaline Phosphatase 246 H (38-126) U/L
[2024-09-09] MEDS: OXYBUTYNIN 10 MG TAB.ER.24 PO SCH (21:10)
[2024-09-09] MEDS: TAMSULOSIN 0.4 MG CAP.ER.24H PO SCH (21:10)
[2024-09-09] MEDS: ALPRAZolam 0.5 MG TAB PO SCH (21:10)
[2024-09-09] MEDS: ENOXAPARIN 40 MG/0.4 ML SYRINGE SQ SCH (21:10)
[2024-09-09] MEDS: IPRATROPIUM-ALBUTEROL 3 ML NEB INHALATION SCH (22:07)
[2024-09-10] MEDS: ACETAMINOPHEN TAB 325 MG TAB PO PRN (04:17)
[2024-09-10] MEDS: CALCIUM CARBONATE 500 MG CHEWABLE PO PRN (04:17)
[2024-09-10] MEDS: PANTOPRAZOLE 40 MG TABLET PO SCH (08:41)
[2024-09-10] MEDS: RANOLAZINE 500 MG TAB.ER.12H PO SCH (08:41)
[2024-09-10] MEDS: DAPAGLIFLOZIN PROPANEDIOL 10 MG TABLET PO SCH (08:41)
[2024-09-10] MEDS: ISOSORBIDE MONONITRATE ER 30 MG TAB.ER.24H PO SCH (08:41)
[2024-09-10] MEDS: ASPIRIN 81 MG PO SCH (08:41)
[2024-09-10] MEDS: FUROSEMIDE 40 MG TAB PO SCH (08:41)
[2024-09-10] MEDS: MULTIVITAMINS, THERA 1 EACH TAB PO SCH (08:41)
[2024-09-10] MEDS: LOSARTAN 25 MG TAB PO SCH (08:42)
[2024-09-10] MEDS: carvediloL 6.25 MG TAB PO SCH (08:48)
[2024-09-10 08:52] LABS: Chol/HDL Ratio 3.13 Ratio; LDL Cholesterol,Calculated 48.9 mg/dL (0.0-131.0); VLDL Calculation 19.18 mg/dL (5.00-40.00)
[2024-09-10] MEDS ORDERED: ASPIRIN 325 MG TAB PO SCH (09:00)
--- NOTE | 2024-09-10 10:04 | P.CRDCN ---
History of Present Illness History of present illness: HISTORY OF PRESENT ILLNESS: This is a 84-year-old male with a past medical history significant for coronary artery disease with previous CABG, cardiomyopathy, valvular heart disease, hype rtension, hyperlipidemia, pacemaker implantation, atrial fibrillation, and former nicotine dependence. Patient follows in the office with Dr. Monet. We have been asked to see the patient in consultation for chest pain. Patient examined at the bedside. Patient states over the past 2 to 3 days he has been having chest discomfort. He states the pain has been persistent. He states the pain is not worse with deep inspiration. He denies having a cough or fever at home. He complains of some pain near both of his nipples and states the pain is worse with chest wall palpation in those areas although that is not new. He states the pain in the middle of his chest is not worse with chest wall pal pation. He reports improved pain this morning although not completely resolved. He is complaining of heartburn with significant burping this morning. Additionally patient's blood pressure is noted to be elevated with a systolic between [id number] during hospitalization. DIAGNOSTICS: - EKG reveals ventricular paced rhythm. - Chest xray chronic changes and cardiomegaly with small left pleural effusion. No acute pulmonary process. No significant change from most recent study. - Laboratory data: WBC 9.9. Hemoglobin 15.1. Platelet count 370. Sodium 140. Potassium 4.5. BUN 34. Creatinine 1.37. Magnesium 2.1. Troponin negative x 3. - Current home cardiac medications include aspirin 81 mg daily, Imdur 30 mg daily, Lipitor 40 mg at night, Farxiga 10 mg daily, Lasix 40 mg daily, losartan 25 mg daily, Xarelto 15 mg daily, carvedilol 6.25 mg daily - Most recent echocardiogram obtained in April 2024 reveals ejection fraction 42%, moderate MR, mild to moderate TR. - Patient underwent 5 vessel CABG in August 2001 with ANN to LAD, TRINITY to RI, radial to OM 2, VG to OM 3, VG to PDA REVIEW OF SYSTEMS: At the time of my exam: CONSTITUTIONAL: Denies fever or chills. HEENT: Denies blurred vision, vision changes, or eye pain. Denies hemoptysis CARDIOVASCULAR: Denies chest pain. Denies orthopnea. Denies PND. Denies palpitations RESPIRATORY: Denies shortness of breath. GASTROINTESTINAL: Denies abdominal pain. Denies nausea or vomiting. HEMATOLOGIC: Denies bleeding disorders. GENITOURINARY: Denies any blood in urine. SKIN: Denies pruitis. Denies rash. PHYSICAL EXAM: VITAL SIGNS: Reviewed. GENERAL: Well-developed in no acute distress. HEENT: Head is normocephalic. Pupils are equal, round. Sclerae anicteric. Mucous membranes of the mouth are moist. Neck supple. No JVD or thyromegaly LUNGS: Respirations even and unlabored. Lungs essentially clear to auscultation bilaterally. HEART: Regular rate and rhythm. S1 and S2 heard. Holosystolic murmur noted ABDOMEN: Soft. Nondistended. Nontender. EXTREMITIES: Normal range of motion. No clubbing or cyanosis. Peripheral puls es intact. No lower extremity edema NEUROLOGIC: Awake and alert. Oriented x 3. ASSESSMENT: Chest pain, troponin negative x 3 Heartburn with significant belching Coronary artery disease with previous 5 vessel CABG, August 2001 Ischemic cardiomyopathy, EF 42% Valvular heart disease including moderate MR and mild to moderate TR Paroxysmal atrial fibrillation Hypertension Hyperlipidemia History of pacemaker implantation Former nicotine dependence PLAN: An acute coronary event has been ruled out Obtain 2D echo to assess cardiac structure and function Hold Xarelto Resume home cardiac medications including aspirin, atorvastatin, carvedilol, Farxiga, Lasix, Imdur, and losartan Increase carvedilol to 12.5 mg twice a day Add Ranexa 500 mg twice a day Repeat BMP in a.m. Continue to monitor patient for additional 24 hours If patient continues to have symptoms tomorrow, will consider cardiac cat heterization. However patient has previously opted for medical management and has wanted to treat his CAD conservatively. Further recommendations pending patient course Nurse practitioner note has been reviewed by physician. Signing provider agrees with the documented findings, assessment, and plan of care documented by [employer] as a scribe. Past Medical History Past Medical History: Heart Failure, COPD Additional Past Medical History / Comment(s): aortic aneurysm,gout, whole repaired esophagus History of Any Multi-Drug Resistant Organisms: None Reported Past Surgical History: Coronary Bypass/CABG, Hernia Repair, Pacemaker Additional Past Surgical History / Comment(s): pacemaker, aortic aneurysm repair, 5 vessel bypass Past Anesthesia/Blood Transfusion Reactions: No Reported Reaction Type of Cardiac Device: Permanent Pacemaker Device Placement Date:: 2014 Past Psychological History: No Psychological Hx Reported Smoking Status: Former smoker Past Alcohol Use History: Occasional Additional Past Alcohol Use History / Comment(s): quit 1984 starting smoking age 14 <1ppd Past Drug Use History: None Reported - Past Family History Sister(s) Family Medical History: Cancer Additional Family Medical History / Comment(s): x 3 sisters Medications and Allergies Home Medications Medication Instructions Recorded Confirmed Type ALPRAZolam [Xanax] 0.5 mg PO HS 08/30/15 09/09/24 History Multivitamins, Thera [Multivitamin 1 tab PO DAILY 08/30/15 09/09/24 History (formulary)] Rivaroxaban [Xarelto] 15 mg PO DAILY 10/17/19 09/09/24 History Tamsulosin [Flomax] 0.4 mg PO HS 05/08/22 09/09/24 History Aspirin EC [Ecotrin Low Dose] 81 mg PO DAILY 05/31/24 09/09/24 History Atorvastatin [Lipitor] 40 mg PO W/SUPPER 05/31/24 09/09/24 History Isosorbide Mononitrate ER [Imdur] 30 mg PO DAILY 05/31/24 09/09/24 History carvediloL [Coreg] 6.25 mg PO BID-W/MEALS 05/31/24 09/09/24 History Dapagliflozin Propanediol [Farxiga] 10 mg PO DAILY #30 tab 06/02/24 09/09/24 Rx Losartan [Cozaar] 25 mg PO DAILY tab 06/02/24 09/09/24 Rx Furosemide [Lasix] 40 mg PO DAILY 09/09/24 09/09/24 History Omeprazole [PriLOSEC] 40 mg PO DAILY 09/09/24 09/09/24 History Oxybutynin Chloride [oxyBUTYnin 10 mg PO HS 09/09/24 09/09/24 History chloride ER] Vitamin C (Unknown Dose) 1 tab PO HS 09/09/24 09/09/24 History Vitamin D (Unknown Dose) 1 cap PO W/SUPPER 09/09/24 09/09/24 History Allergies Allergy/AdvReac Type Severity Reaction Status Date / Time morphine Allergy Nausea & Verified 09/09/24 11:57 Vomiting Physical Exam Vitals: Vital Signs Temp Pulse Pulse Resp BP BP Pulse Ox 09/10/24 03:17 97.6 F 61 17 160/77 96 09/10/24 02:00 60 09/09/24 22:18 60 09/09/24 22:08 62 09/09/24 21:10 60 09/09/24 20:00 97.6 F 57 L 16 149/77 96 09/09/24 16:20 97.7 F 80 16 173/92 96 09/09/24 16:08 62 18 143/87 97 09/09/24 13:07 97.8 F 60 18 156/81 98 09/09/24 09:49 63 18 148/91 96 09/09/24 09:45 97.5 F L 86 18 150/83 97 Intake and Output 09/09/24 09/10/24 09/10/24 22:59 06:59 14:59 Intake Total 240 Balance 240 Intake: Oral 240 Other: Voiding Method Toilet # Voids 1 3 # Bowel Movements 1 Weight 68.946 kg Results 09/09/24 10:24 09/09/24 10:24 Cardiac Enzymes 09/09/24 09/09/24 09/09/24 Range/Units 10:24 10:24 14:03 AST 43 (17-59) U/L Troponin I 0.014 0.016 (0.000-0.034) ng/mL 09/09/24 Range/Units 18:24 AST (17-59) U/L Troponin I 0.017 (0.000-0.034) ng/mL Coagulation 09/09/24 Range/Units 10:24 PT 14.4 H (10.0-12.5) sec APTT 28.2 (22.0-30.0) sec CBC 09/09/24 Range/Units 10:24 WBC 9.9 (3.8-10.6) k/uL RBC 6.28 H (4.30-5.90) m/uL Hgb 15.1 (13.0-17.5) gm/dL Hct 50.2 (39.0-53.0) % Plt Count 370 (150-450) k/uL Comprehensive Metabolic Panel 09/09/24 Range/Units 10:24 Sodium 140 (137-145) mmol/L Potassium 4.5 (3.5-5.1) mmol/L Chloride 101 (98-107) mmol/L Carbon Dioxide 29 (22-30) mmol/L BUN 34 H (9-20) mg/dL Creatinine 1.37 H (0.66-1.25) mg/dL Glucose 100 H (74-99) mg/dL Calcium 9.3 (8.4-10.2) mg/dL AST 43 (17-59) U/L ALT 39 (4-49) U/L Alkaline Phosphatase 246 H (38-126) U/L Total Protein 7.4 (6.3-8.2) g/dL Albumin 4.1 (3.5-5.0) g/dL Current Medications Generic Name Dose Route Start Last Admin Trade Name Freq PRN Reason Stop Dose Admin Acetaminophen 650 mg 09/09/24 16:08 09/10/24 04:17 Acetaminophen Tab 325 Mg Tab PO 650 mg Q6HR PRN Administration Mild Pain or Fever > 100.5 Albuterol/Ipratropium 3 ml 09/09/24 20:00 09/09/24 22:07 Ipratropium-Albuterol 3 Ml Neb INHALATION 3 ml RT-TID YARELIS Administration Alprazolam 0.5 mg 09/09/24 21:00 09/09/24 21:10 Alprazolam 0.5 Mg Tab PO 0.5 mg HS YARELIS Administration Aspirin 81 mg 09/10/24 09:00 Aspirin 81 Mg PO DAILY [facility] Atorvastatin Calcium 40 mg 09/09/24 17:30 09/09/24 17:51 Atorvastatin 40 Mg Tab PO 40 mg W/SUPPER YARELIS Administration Calcium Carbonate/Glycine 1,000 mg 09/09/24 16:08 09/10/24 04:17 Calcium Carbonate 500 Mg Chewable PO 1,000 mg Q4HR PRN Administration Dyspepsia Carvedilol 6.25 mg 09/09/24 17:30 09/09/24 17:52 Carvedilol 6.25 Mg Tab PO 6.25 mg BID-W/MEALS [facility] Administration Dapagliflozin 10 mg 09/10/24 09:00 Dapagliflozin Propanediol 10 Mg Tablet PO DAILY [facility] Enoxaparin Sodium 40 mg 09/09/24 21:00 09/09/24 21:10 Enoxaparin 40 Mg/0.4 Ml Syringe SQ 40 mg HS YARELIS Administration Furosemide 40 mg 09/10/24 09:00 Furosemide 40 Mg Tab PO DAILY [facility] Isosorbide Mononitrate 30 mg 09/10/24 09:00 Isosorbide Mononitrate Er 30 Mg Tab.Er.24h PO DAILY [facility] Lactulose 20 gm 09/09/24 16:08 Lactulose 20 Gm/30 Ml Cup PO DAILY PRN Constipation Losartan Potassium 25 mg 09/10/24 09:00 Losartan 25 Mg Tab PO DAILY [facility] Melatonin 3 mg 09/09/24 16:08 Melatonin 3 Mg Tablet PO HS PRN Insomnia Multivitamins 1 each 09/10/24 09:00 Multivitamins, Thera 1 Each Tab PO DAILY [facility] Naloxone HCl 0.2 mg 09/09/24 16:08 Naloxone 0.4 Mg/Ml 1 Ml Vial IV Q2M PRN Opioid Reversal Nitroglycerin 0.4 mg 09/09/24 11:40 Nitroglycerin Sl Tabs 0.4 Mg Tab SUBLINGUAL Q5M PRN Chest Pain Ondansetron HCl 4 mg 09/09/24 16:08 Ondansetron 4 Mg/2 Ml Vial IVP Q8HR PRN Nausea And Vomiting Oxybutynin Chloride 10 mg 09/09/24 21:00 09/09/24 21:10 Oxybutynin 10 Mg Tab.Er.24 PO 10 mg HS [facility] Administration Pantoprazole Sodium 40 mg 09/10/24 09:00 Pantoprazole 40 Mg Tablet PO DAILY [facility] Tamsulosin HCl 0.4 mg 09/09/24 21:00 09/09/24 21:10 Tamsulosin 0.4 Mg Cap.Er.24h PO 0.4 mg HS [facility] Administration Intake and Output 09/09/24 09/10/24 09/10/24 22:59 06:59 14:59 Intake Total 240 Balance 240 Intake: Oral 240 Other: Voiding Method Toilet # Voids 1 3 # Bowel Movements 1 Weight 68.946 kg 09/09/24 10:24 09/09/24 10:24
--- NOTE | 2024-09-10 11:44 | CA ---
Transthoracic Echo Report Name: Valeriy Cho Age: 84 Gender: M : 1940 Exam Date: 09/10/2024 09:35 Exam Location: [facility] Ht (in): 70 Wt (lb): 152 Ordering Physician: Anjali Rodriguez Attending/Referring Phys: [id number], [employer] Ariana James RDCS Procedure CPT: Indications: CP, LV function Cardiac Hx: Technical Quality: Fair Contrast 1: Total Dose (mL): Contrast 2: Total Dose (mL): MEASUREMENTS (Male / Female) Normal Values 2D ECHO LV Diastolic Diameter PLAX 5.0 cm 4.2 - 5.9 / 3.9 - 5.3 cm LV Systolic Diameter PLAX 3.7 cm IVS Diastolic Thickness 1.4 cm 0.6 - 1.0 / 0.6 - 0.9 cm LVPW Diastolic Thickness 1.2 cm 0.6 - 1.0 / 0.6 - 0.9 cm LV Relative Wall Thickness 0.5 RV Internal Dim ED PLAX 2.6 cm LA Systolic Diameter LX 4.3 cm 3.0 - 4.0 / 2.7 - 3.8 cm LV Diastolic Volume MOD BP 66.8 cm??? 67 - 155 / 56 - 104 cm??? LV Systolic Volume MOD BP 50.0 cm??? 22 - 58 / 19 - 49 cm??? LV Ejection Fraction MOD BP 25.2 % >= 55 % LV Cardiac Index MOD BP 629.7 cm???/min???m??? LV Diastolic Volume MOD 4C 70.2 cm??? LV Systolic Volume MOD 4C 44.1 cm??? LV Ejection Fraction MOD 4C 37.2 % LV Cardiac Index MOD 4C 976.2 cm???/min???m??? LV Diastolic Length 4C 7.3 cm LV Systolic Length 4C 7.1 cm LV Diastolic Volume MOD 2C 59.8 cm??? LV Systolic Volume MOD 2C 43.9 cm??? LV Ejection Fraction MOD 2C 26.7 % LV Cardiac Index MOD 2C 597.0 cm???/min???m??? LV Diastolic Length 2C 7.8 cm LV Systolic Length 2C 7.4 cm M-MODE Aortic Root Diameter MM 3.6 cm LA Systolic Diameter MM 5.1 cm LA Ao Ratio MM 1.4 AV Cusp Separation MM 2.3 cm DOPPLER AV Peak Velocity 125.0 cm/s AV Peak Gradient 6.3 mmHg AI Peak Velocity 335.5 cm/s AI Peak Gradient 45.0 mmHg AI Pressure Half Time 1343.7 ms LVOT Peak Velocity 87.1 cm/s LVOT Peak Gradient 3.0 mmHg LVOT Velocity Time Integral 17.2 cm MV E' Velocity 6.2 cm/s TR Peak Velocity 275.1 cm/s TR Peak Gradient 30.3 mmHg Right Atrial Pressure 15.0 mmHg Pulmonary Artery Systolic Pressu 45.3 mmHg Right Ventricular Systolic Press 45.3 mmHg FINDINGS Left Ventricle Left ventricular ejection fraction is estimated at 35-40 %. Mildly increased septal wall thickness. Moderately reduced left ventricular systolic function. Left ventricular cavity size normal. The anterior apical wall appears to be more hypokinetic Right Ventricle Mild right ventricular dilatation. Mild pulmonary hypertension. Right Atrium Moderate right atrial dilatation. Catheter/pacemaker wire in the right atrial cavity. Left Atrium Moderate left atrial dilatation. Mitral Valve Structurally normal mitral valve. Moderate mitral regurgitation. No mitral stenosis. Aortic Valve Trileaflet aortic valve. [id number] aortic regurgitation. No aortic stenosis. Tricuspid Valve Structurally normal tricuspid valve. Moderate tricuspid regurgitation. No tricuspid stenosis. Pulmonic Valve Structurally normal pulmonic valve. Trace pulmonic regurgitation. No pulmonic stenosis. Pericardium No pericardial or pleural effusion. Aorta Aorta at upper limits of normal. CONCLUSIONS 1. Moderately impaired left ventricular systolic function 2. Moderate mitral and tricuspid regurgitation with mild to moderate pulmonary hypertension 3. Mild to moderate aortic regurgitation 4. A wire was noted in the right ventricle Previewed by: Dr. Avel Monet MD (Electronically Signed) Final Date: 10 September 2024 11:43
--- NOTE | 2024-09-10 19:03 | P.PN ---
Progress Note - Text Progress Note Date: 09/10/24 Chief Complaint: Chest tightness Pleasant 84-year-old patient who follows with Dr. Rey. Chronic medical conditions include aortic aneurysm, gout, coronary bypass, pacemaker. Patient presents with chest tightness off and on to his family doctor. Yesterday. Told him to come in. Also get a bit short of breath. Little phlegm. No fever no chills. Has a pacemaker. Has not had a stress test in the recent past. Normally able to walk a fair distance on his own pace. September 10: Seen this morning. Sitting edge of bed. Some antianginal medications added by cardiology. Son present. Did ambulate in the hallway. Depending on clinical course possible cardiac catheterization tomorrow. Active Medications Acetaminophen (Acetaminophen Tab 325 Mg Tab) 650 mg PO Q6HR PRN PRN Reason: Mild Pain or Fever > 100.5 Last Admin: 09/10/24 04:17 Dose: 650 mg Albuterol/Ipratropium (Ipratropium-Albuterol 3 Ml Neb) 3 ml INHALATION RT-TID [facility] Last Admin: 09/10/24 18:26 Dose: 3 ml Alprazolam (Alprazolam 0.5 Mg Tab) 0.5 mg PO HS [facility] Last Admin: 09/09/24 21:10 Dose: 0.5 mg Aspirin (Aspirin 81 Mg) 81 mg PO DAILY [facility] Last Admin: 09/10/24 08:41 Dose: 81 mg Atorvastatin Calcium (Atorvastatin 40 Mg Tab) 40 mg PO W/SUPPER [facility] Last Admin: 09/10/24 17:26 Dose: 40 mg Calcium Carbonate/Glycine (Calcium Carbonate 500 Mg Chewable) 1,000 mg PO Q4HR PRN PRN Reason: Dyspepsia Last Admin: 09/10/24 04:17 Dose: 1,000 mg Carvedilol (Carvedilol 6.25 Mg Tab) 12.5 mg PO BID-W/MEALS [facility] Last Admin: 09/10/24 17:26 Dose: 12.5 mg Dapagliflozin (Dapagliflozin Propanediol 10 Mg Tablet) 10 mg PO DAILY [facility] Last Admin: 09/10/24 08:41 Dose: 10 mg Enoxaparin Sodium (Enoxaparin 40 Mg/0.4 Ml Syringe) 40 mg SQ HS [facility] Last Admin: 09/09/24 21:10 Dose: 40 mg Furosemide (Furosemide 40 Mg Tab) 40 mg PO DAILY [facility] Last Admin: 09/10/24 08:41 Dose: 40 mg Isosorbide Mononitrate (Isosorbide Mononitrate Er 30 Mg Tab.Er.24h) 30 mg PO DAILY [facility] Last Admin: 09/10/24 08:41 Dose: 30 mg Lactulose (Lactulose 20 Gm/30 Ml Cup) 20 gm PO DAILY PRN PRN Reason: Constipation Losartan Potassium (Losartan 25 Mg Tab) 25 mg PO DAILY [facility] Last Admin: 09/10/24 08:42 Dose: 25 mg Melatonin (Melatonin 3 Mg Tablet) 3 mg PO HS PRN PRN Reason: Insomnia Multivitamins (Multivitamins, Thera 1 Each Tab) 1 each PO DAILY [facility] Last Admin: 09/10/24 08:41 Dose: 1 each Naloxone HCl (Naloxone 0.4 Mg/Ml 1 Ml Vial) 0.2 mg IV Q2M PRN PRN Reason: Opioid Reversal Nitroglycerin (Nitroglycerin Sl Tabs 0.4 Mg Tab) 0.4 mg SUBLINGUAL Q5M PRN PRN Reason: Chest Pain Ondansetron HCl (Ondansetron 4 Mg/2 Ml Vial) 4 mg IVP Q8HR PRN PRN Reason: Nausea And Vomiting Oxybutynin Chloride (Oxybutynin 10 Mg Tab.Er.24) 10 mg PO HS [facility] Last Admin: 09/09/24 21:10 Dose: 10 mg Pantoprazole Sodium (Pantoprazole 40 Mg Tablet) 40 mg PO DAILY [facility] Last Admin: 09/10/24 08:41 Dose: 40 mg Ranolazine (Ranolazine 500 Mg Tab.Er.12h) 500 mg PO Q12HR [facility] Last Admin: 09/10/24 08:41 Dose: 500 mg Tamsulosin HCl (Tamsulosin 0.4 Mg Cap.Er.24h) 0.4 mg PO HS [facility] Last Admin: 09/09/24 21:10 Dose: 0.4 mg Social history: Lives alone. Stopped smoking in 1983. Started the age of 58 less than a pack a day. Alcohol occasionally. Used to work in a [employer] shop Physical examination: VITAL SIGNS: 66, 16, 135% 8, 96% room air GENERAL: BMI 21.8, H the bed EYES: Pupils equal. Conjunctiva karolina l. HEENT: External appearance of nose and ears normal, oral cavity grossly normal. NECK: JVD not raised; masses not palpable. HEART: First and second heart sounds are normal; no edema. LUNGS: Respiratory rate normal; decreased breath sounds. ABDOMEN: Soft, nontender, liver spleen not palpable, no masses palpable. PSYCH: Alert and oriented x3; mood and affect karolina l. MUSCULOSKELETAL:No Clubbing/cyanosis;muscles-grossly intact INVESTIGATIONS, reviewed in the clinical context: Echo: EF 35 to 40%. Anterior apical wall appears to be more hypokinetic with moderate MR. Mild to moderate AR. Moderate TR. September 09, 2024: White count 9.9 hemoglobin 15.1 platelets 370 sodium 140 potassium 4.5 BUN 34 creatinine 1.37 Troponin I 0.014, 0.016, 0.017 Influenza type A, type B, RSV, SARS-CoV-2: Not detected EKG tracing personally reviewed by me-ventricular paced rhythm Chest x-ray film personally reviewed by me-pacemaker. Some hyperinflation Assessment plan: -Anterior chest wall tightness off-and-on. With the patient known CAD with a prior bypass: Possible unstable angina Negative troponin. Telemetry. Cardiology following Coreg increased to 12.5 twice daily. Ranexa 500 twice daily added. Ambulate in the hallway. Possible cardiac catheterization depending on clinical course -Chronic CHF exacerbation,, systolic dysfunction EF 35-40 %. Aldactone. Cozaar. Farxiga. Lasix -Moderate mitral, mild to moderate tricuspid regurgitation. Moderate AR. -COPD in a prior smoker DuoNeb 3 times daily -Coronary artery disease status post CABG Coreg. Aspirin -BPH Flomax -GERD Prilosec -Chronic kidney disease . Stage III. Likely nephrosclerosis. Follow labs outpatient. IV fluids 50 cc an hour in view of possible cardiac catheterization -Full code Discussed with patient's son. Possible cardiac cath tomorrow. Past Medical History Past Medical History: Heart Failure, COPD Additional Past Medical History / Comment(s): aortic aneurysm,gout, whole repaired esophagus History of Any Multi-Drug Resistant Organisms: None Reported Past Surgical History: Coronary Bypass/CABG, Hernia Repair, Pacemaker Additional Past Surgical History / Comment(s): pacemaker, aortic aneurysm repair, 5 vessel bypass Past Anesthesia/Blood Transfusion Reactions: No Reported Reaction Type of Cardiac Device: Permanent Pacemaker Device Placement Date:: 2014 Past Psychological History: No Psychological Hx Reported Smoking Status: Former smoker Past Alcohol Use History: Occasional Additional Past Alcohol Use History / Comment(s): quit 1984 starting smoking age 14 <1ppd Past Drug Use History: None Reported
[2024-09-10] MEDS: SODIUM CHLORIDE 0.9% 500 ML 500 ML IV SCH (20:58)
[2024-09-11] MEDS: MELATONIN 3 MG TABLET PO PRN (00:31)
[2024-09-11 04:30] LABS: African American GFR (CKD) 48 (>60 ml/min/1.73 sqM); Anion Gap 7 mmol/L; Blood Urea Nitrogen 30 mg/dL (9-20); Calcium 9.5 mg/dL (8.4-10.2); Carbon Dioxide 29 mmol/L (22-30); Chloride 97 mmol/L (98-107); Glucose 94 mg/dL (74-99); Non-African American GFR(CKD) 41 (>60 ml/min/1.73 sqM); Potassium 4.6 mmol/L (3.5-5.1); Sodium 133 mmol/L (137-145)
[2024-09-11] MEDS: RANOLAZINE 500 MG TAB.ER.12H PO SCH (08:50)
[2024-09-11] MEDS: ISOSORBIDE MONONITRATE ER 60 MG TAB.ER.24H PO SCH (11:27)
--- NOTE | 2024-09-11 11:55 | P.PN ---
Subjective HISTORY OF PRESENT ILLNESS: This is a 84-year-old male with a past medical history significant for coronary artery disease with previous CABG, cardiomyopathy, valvular heart disease, hypertension, hyperlipidemia, pacemaker implantation, atrial fibrillation, and former nicotine dependence. Patient follows in the office with Dr. Monet. We have been asked to see the patient in consultation for chest pain. Patient examined at the bedside. Patient states over the past 2 to 3 days he has been having chest discomfort. He states the pain has been persistent. He states the pain is not worse with deep inspiration. He denies having a cough or fever at home. He complains of some pain near both of his nipples and states the pain is worse with chest wall palpation in those areas although that is not new. He states the pain in the middle of his chest is not worse with chest wall palpation. He reports improved pain this morning although not completely resolved. He is complaining of heartburn with significant burping this morning. Additionally patient's blood pressure is noted to be elevated with a systolic between [id number] during hospitalization. DIAGNOSTICS: - EKG reveals ventricular paced rhythm. - Chest xray chronic changes and cardiomegaly with small left pleural effusion. No acute pulmonary process. No significant change from most recent study. - Laboratory data: WBC 9.9. Hemoglobin 15.1. Platelet count 370. Sodium 140. Potassium 4.5. BUN 34. Creatinine 1.37. Magnesium 2.1. Troponin negative x 3. - Current home cardiac medications include aspirin 81 mg daily, Imdur 30 mg daily, Lipitor 40 mg at night, Farxiga 10 mg daily, Lasix 40 mg daily, losartan 25 mg daily, Xarelto 15 mg daily, carvedilol 6.25 mg daily - Most recent echocardiogram obtained in April 2024 reveals ejection fraction 42%, moderate MR, mild to moderate TR. - Patient underwent 5 vessel CABG in August 2001 with ANN to LAD, TRINITY to RI, radial to OM 2, VG to OM 3, VG to PDA 09/11/2024 Patient examined this morning at the bedside. Patient reports improvement in his chest tightness. However he continues to report shortness of breath this morning. Patient states his symptoms are about the same as yesterday. He has not been out of bed yet this morning to ambulate. Creatinine slightly worsened today at 1.51. Blood pressure 142/68. Echocardiogram completed revealing ejection fraction 35 to 40%, anterior apical wall appears to be more hypokinetic, mild pulmonary hypertension, moderate MR, mild to moderate AR, moderate TR PHYSICAL EXAM: VITAL SIGNS: Reviewed. GENERAL: Well-developed in no acute distress. HEENT: Head is normocephalic. Pupils are equal, round. Sclerae anicteric. Mucous membranes of the mouth are moist. Neck supple. No JVD or thyromegaly LUNGS: Respirations even and unlabored. Lungs essentially clear to auscultation bilaterally. HEART: Regular rate and rhythm. S1 and S2 heard. Holosystolic murmur noted ABDOMEN: Soft. Nondistended. Nontender. EXTREMITIES: Normal range of motion. No clubbing or cyanosis. Peripheral pulses intact. No lower extremity edema NEUROLOGIC: Awake and alert. Oriented x 3. ASSESSMENT: Chest pain, troponin negative x 3 Heartburn with significant belching Coronary artery disease with previous 5 vessel CABG, August 2001 Ischemic cardiomyopathy, EF 42% Valvular heart disease including moderate MR and mild to moderate TR Paroxysmal atrial fibrillation Hypertension Hyperlipidemia History of pacemaker implantation Former nicotine dependence PLAN: Continue current medications including aspirin, atorvastatin, carvedilol, Farxiga, Lasix, Imdur, and losartan Increase Imdur to 60 mg daily Increase Ranexa to 1000 mg twice a day Repeat BMP in a.m. If patient continues to have symptoms tomorrow, will consider cardiac catheterization pending kidney function. However patient has previously opted for medical management and has wanted to treat his CAD conservatively. Further recommendations pending patient course Nurse practitioner note has been reviewed by physician. Signing provider agrees with the documented findings, assessment, and plan of care documented by PROGRAMMABLE LOGIC CONTROLLER ASSEMBLER as a scribe. Objective - Vital Signs Vital signs: Vital Signs Temp 98.2 F 09/11/24 07:00 Pulse 68 09/11/24 08:21 Resp 17 09/11/24 07:00 BP 142/68 09/11/24 07:00 Pulse Ox 95 09/11/24 07:00 FiO2 Intake & Output 09/10/24 09/11/24 09/11/24 18:59 06:59 18:59 Intake Total 1430 Output Total 300 Balance 1430 -300 Intake: Oral 1430 Output: Urine 300 Other: Voiding Method Toilet # Voids 3 2 - Labs CBC & Chem 7: 09/09/24 10:24 09/11/24 02:54 Labs: Abnormal Lab Results - Last 24 Hours (Table) 09/11/24 Range/Units 02:54 Sodium 133 L (137-145) mmol/L Chloride 97 L (98-107) mmol/L BUN 30 H (9-20) mg/dL Creatinine 1.51 H (0.66-1.25) mg/dL
--- NOTE | 2024-09-11 21:15 | P.PN ---
Progress Note - Text Progress Note Date: 09/11/24 Chief Complaint: Chest tightness Pleasant 84-year-old patient who follows with Dr. Rey. Chronic medical conditions include aortic aneurysm, gout, coronary bypass, pacemaker. Patient presents with chest tightness off and on to his family doctor. Yesterday. Told him to come in. Also get a bit short of breath. Little phlegm. No fever no chills. Has a pacemaker. Has not had a stress test in the recent past. Normally able to walk a fair distance on his own pace. September 10: Seen this morning. Sitting edge of bed. Some antianginal medications added by cardiology. Son present. Did ambulate in the hallway. Depending on clinical course possible cardiac catheterization tomorrow. September 11: Because of patient's creatinine cardiac catheterization postponed to tomorrow. Patient to continue to get normal saline at 50 cc an hour. Careful review of low EF. Hold off Lasix in the morning in view of cardiac cath. Discussed with patient. Patient still had some chest discomfort yesterday after change of medications. Active Medications Acetaminophen (Acetaminophen Tab 325 Mg Tab) 650 mg PO Q6HR PRN PRN Reason: Mild Pain or Fever > 100.5 Last Admin: 09/10/24 04:17 Dose: 650 mg Albuterol/Ipratropium (Ipratropium-Albuterol 3 Ml Neb) 3 ml INHALATION RT-TID [facility] Last Admin: 09/11/24 18:25 Dose: 3 ml Alprazolam (Alprazolam 0.5 Mg Tab) 0.5 mg PO HS [facility] Last Admin: 09/11/24 20:31 Dose: 0.5 mg Aspirin (Aspirin 81 Mg) 81 mg PO DAILY [facility] Last Admin: 09/11/24 08:51 Dose: 81 mg Atorvastatin Calcium (Atorvastatin 40 Mg Tab) 40 mg PO W/SUPPER [facility] Last Admin: 09/11/24 17:47 Dose: 40 mg Calcium Carbonate/Glycine (Calcium Carbonate 500 Mg Chewable) 1,000 mg PO Q4HR PRN PRN Reason: Dyspepsia Last Admin: 09/10/24 20:10 Dose: 1,000 mg Carvedilol (Carvedilol 6.25 Mg Tab) 12.5 mg PO BID-W/MEALS [facility] Last Admin: 09/11/24 17:47 Dose: 12.5 mg Dapagliflozin (Dapagliflozin Propanediol 10 Mg Tablet) 10 mg PO DAILY [facility] Last Admin: 09/11/24 08:51 Dose: 10 mg Enoxaparin Sodium (Enoxaparin 40 Mg/0.4 Ml Syringe) 40 mg SQ HS [facility] Last Admin: 09/11/24 20:31 Dose: 40 mg Furosemide (Furosemide 40 Mg Tab) 40 mg PO DAILY [facility] Isosorbide Mononitrate (Isosorbide Mononitrate Er 60 Mg Tab.Er.24h) 60 mg PO DAILY [facility] Last Admin: 09/11/24 11:27 Dose: 60 mg Lactulose (Lactulose 20 Gm/30 Ml Cup) 20 gm PO DAILY PRN PRN Reason: Constipation Losartan Potassium (Losartan 25 Mg Tab) 25 mg PO DAILY [facility] Last Admin: 09/11/24 08:50 Dose: 25 mg Melatonin (Melatonin 3 Mg Tablet) 3 mg PO HS PRN PRN Reason: Insomnia Last Admin: 09/11/24 00:31 Dose: 3 mg Multivitamins (Multivitamins, Thera 1 Each Tab) 1 each PO DAILY [facility] Last Admin: 09/11/24 08:50 Dose: 1 each Naloxone HCl (Naloxone 0.4 Mg/Ml 1 Ml Vial) 0.2 mg IV Q2M PRN PRN Reason: Opioid Reversal Nitroglycerin (Nitroglycerin Sl Tabs 0.4 Mg Tab) 0.4 mg SUBLINGUAL Q5M PRN PRN Reason: Chest Pain Ondansetron HCl (Ondansetron 4 Mg/2 Ml Vial) 4 mg IVP Q8HR PRN PRN Reason: Nausea And Vomiting Oxybutynin Chloride (Oxybutynin 10 Mg Tab.Er.24) 10 mg PO HS [facility] Last Admin: 09/11/24 20:31 Dose: 10 mg Pantoprazole Sodium (Pantoprazole 40 Mg Tablet) 40 mg PO DAILY [facility] Last Admin: 09/11/24 08:50 Dose: 40 mg Ranolazine (Ranolazine 500 Mg Tab.Er.12h) 1,000 mg PO Q12HR [facility] Last Admin: 09/11/24 20:31 Dose: 1,000 mg Tamsulosin HCl (Tamsulosin 0.4 Mg Cap.Er.24h) 0.4 mg PO HS [facility] Last Admin: 09/11/24 20:31 Dose: 0.4 mg Social history: Lives alone. Stopped smoking in 1983. Started the age of 58 less than a pack a day. Alcohol occasionally. Used to work in a print shop Physical examination: VITAL SIGNS: 97.4, 69, 16, 151 x 79, 95% room air GENERAL: Sitting edge of the bed, comfortable EYES: Pupils equal. Conjunctiva karolina l. HEENT: External appearance of nose and ears normal, oral cavity grossly normal. NECK: JVD not raised; masses not palpable. HEART: First and second heart sounds are normal; no edema. LUNGS: Respiratory rate normal; decreased breath sounds. ABDOMEN: Soft, nontender, liver spleen not palpable, no masses palpable. PSYCH: Alert and oriented x3; mood and affect karolina l. MUSCULOSKELETAL:No Clubbing/cyanosis;muscles-grossly intact INVESTIGATIONS, reviewed in the clinical context: September 11: Potassium 4.6 BUN 30 creatinine 1.51 Echo: EF 35 to 40%. Anterior apical wall appears to be more hypokinetic with moderate MR. Mild to moderate AR. Moderate TR. September 09, 2024: White count 9.9 hemoglobin 15.1 platelets 370 sodium 140 potassium 4.5 BUN 34 creatinine 1.37 Troponin I 0.014, 0.016, 0.017 Influenza type A, type B, RSV, SARS-CoV-2: Not detected EKG tracing personally reviewed by me-ventricular paced rhythm Chest x-ray film personally reviewed by me-pacemaker. Some hyperinflation Assessment plan: -Anterior chest wall tightness off-and-on. With the patient known CAD with a prior bypass: Probable unstable angina: Slow to respond Negative troponin. Telemetry. Cardiology following Coreg increased to 12.5 twice daily. Ranexa 500 twice daily added. Ambulate in the hallway. Possible cardiac catheterization depending on clinical course -Chronic CHF exacerbation,, systolic dysfunction EF 35-40 %. Aldactone. Cozaar. Farxiga. Lasix -Moderate mitral, mild to moderate tricuspid regurgitation. Moderate AR. -COPD in a prior smoker DuoNeb 3 times daily -Coronary artery disease status post CABG Coreg. Aspirin -BPH Flomax -GERD Prilosec -Chronic kidney disease . Stage III. Likely nephrosclerosis. Follow labs outpatient. IV fluids 50 cc an hour in view of cardiac catheterization [hold Lasix] -Full code Continue normal saline gently. Hold Lasix in the morning. For cardiac catheterization tomorrow. Past Medical History Past Medical History: Heart Failure, COPD Additional Past Medical History / Comment(s): aortic aneurysm,gout, whole repaired esophagus History of Any Multi-Drug Resistant Organisms: None Reported Past Surgical History: Coronary Bypass/CABG, Hernia Repair, Pacemaker Additional Past Surgical History / Comment(s): pacemaker, aortic aneurysm repair, 5 vessel bypass Past Anesthesia/Blood Transfusion Reactions: No Reported Reaction Type of Cardiac Device: Permanent Pacemaker Device Placement Date:: 2014 Past Psychological History: No Psychological Hx Reported Smoking Status: Former smoker Past Alcohol Use History: Occasional Additional Past Alcohol Use History / Comment(s): quit 1983 starting smoking age 14 <1ppd Past Drug Use History: None Reported
[2024-09-12 07:40] VITALS: BP 149/75; RESP 15; TEMP 97.6
[2024-09-12 08:14] LABS: BUN/Creat Ratio 19.79 Ratio (12.00-20.00); Blood Urea Nitrogen 27.7 mg/dL (9.0-27.0); Calcium 9.1 mg/dL (8.7-10.3); Carbon Dioxide 25.2 mmol/L (21.6-31.8); Chloride 102 mmol/L (96-109); Glucose 91 mg/dL (70-110); Potassium 4.5 mmol/L (3.5-5.5); Sodium 138 mmol/L (135-145)
[2024-09-12 08:47] VITALS: PULSE 68
--- NOTE | 2024-09-12 09:26 | P.PN ---
Subjective HISTORY OF PRESENT ILLNESS: This is a 84-year-old male with a past medical history significant for coronary artery disease with previous CABG, cardiomyopathy, valvular heart disease, hypertension, hyperlipidemia, pacemaker implantation, atrial fibrillation, and former nicotine dependence. Patient follows in the office with Dr. Monet. We have been asked to see the patient in consultation for chest pain. Patient examined at the bedside. Patient states over the past 2 to 3 days he has been having chest discomfort. He states the pain has been persistent. He states the pain is not worse with deep inspiration. He denies having a cough or fever at home. He complains of some pain near both of his nipples and states the pain is worse with chest wall palpation in those areas although that is not new. He states the pain in the middle of his chest is not worse with chest wall palpation. He reports improved pain this morning although not completely resolved. He is complaining of heartburn with significant burping this morning. Additionally patient's blood pressure is noted to be elevated with a systolic between [id number] during hospitalization. DIAGNOSTICS: - EKG reveals ventricular paced rhythm. - Chest xray chronic changes and cardiomegaly with small left pleural effusion. No acute pulmonary process. No significant change from most recent study. - Laboratory data: WBC 9.9. Hemoglobin 15.1. Platelet count 370. Sodium 140. Potassium 4.5. BUN 34. Creatinine 1.37. Magnesium 2.1. Troponin negative x 3. - Current home cardiac medications include aspirin 81 mg daily, Imdur 30 mg daily, Lipitor 40 mg at night, Farxiga 10 mg daily, Lasix 40 mg daily, losartan 25 mg daily, Xarelto 15 mg daily, carvedilol 6.25 mg daily - Most recent echocardiogram obtained in April 2024 reveals ejection fraction 42%, moderate MR, mild to moderate TR. - Patient underwent 5 vessel CABG in August 2001 with ANN to LAD, TRINITY to RI, radial to OM 2, VG to OM 3, VG to PDA 09/11/2024 Patient examined this morning at the bedside. Patient reports improvement in his chest tightness. However he continues to report shortness of breath this morning. Patient states his symptoms are about the same as yesterday. He has not been out of bed yet this morning to ambulate. Creatinine slightly worsened today at 1.51. Blood pressure 142/68. Echocardiogram completed revealing ejection fraction 35 to 40%, anterior apical wall appears to be more hypokinetic, mild pulmonary hypertension, moderate MR, mild to moderate AR, moderate TR 09/12/2024 Patient examined this morning at the bedside. Patient states he has had no further episodes of chest pain or pressure. He denies shortness of breath. He is currently receiving a breathing treatment at the time of examination. Vital signs are stable. Creatinine today 1.4. PHYSICAL EXAM: VITAL SIGNS: Reviewed. GENERAL: Well-developed in no acute distress. HEENT: Head is normocephalic. Pupils are equal, round. Sclerae anicteric. Mucous membranes of the mouth are moist. Neck supple. No JVD or thyromegaly LUNGS: Respirations even and unlabored. Lungs essentially clear to auscultation bilaterally. HEART: Regular rate and rhythm. S1 and S2 heard. Holosystolic murmur noted ABDOMEN: Soft. Nondistended. Nontender. EXTREMITIES: Normal range of motion. No clubbing or cyanosis. Peripheral pulses intact. No lower extremity edema NEUROLOGIC: Awake and alert. Oriented x 3. ASSESSMENT: Chest pain, troponin negative x 3 Heartburn with significant belching Coronary artery disease with previous 5 vessel CABG, August 2001 Ischemic cardiomyopathy, EF 42% Valvular heart disease including moderate MR and mild to moderate TR Paroxysmal atrial fibrillation Hypertension Hyperlipidemia History of pacemaker implantation Former nicotine dependence PLAN: Continue current medications including aspirin, Ranexa, atorvastatin, carvedilol, Farxiga, Lasix, Imdur, and losartan Resume Xarelto Patient without any further cardiac symptoms. We will continue with conservative management. No plans for cardiac catheterization at this time Patient may be discharged home today from a cardiac standpoint We will sign off. Please reconsult if needed. Nurse practitioner note has been reviewed by physician. Signing provider agrees with the documented findings, assessment, and plan of care documented by PHARMACY ACCOUNT DIRECTOR as a scribe. Objective - Vital Signs Vital signs: Vital Signs Temp 97.6 F 09/12/24 07:25 Pulse 68 09/12/24 08:46 Resp 15 09/12/24 07:25 BP 149/75 09/12/24 07:25 Pulse Ox 95 09/12/24 07:25 FiO2 Intake & Output 09/11/24 09/12/24 09/12/24 18:59 06:59 18:59 Intake Total 118 Output Total 400 Balance -282 Intake: Oral 118 Output: Urine 400 Other: Voiding Method Toilet Toilet # Voids 2 - Labs CBC & Chem 7: 09/09/24 10:24 09/12/24 03:29 Labs: Abnormal Lab Results - Last 24 Hours (Table) 09/12/24 Range/Units 03:29 BUN 27.7 H (9.0-27.0) mg/dL Est GFR (CKD-EPI) 49 L (>=60)
[2024-09-12] MEDS: RIVAROXABAN 15 MG TAB PO SCH (10:43)
--- NOTE | 2024-09-12 20:46 | P.DS ---
Providers Date of admission: 09/11/24 15:33 Expected date of discharge: 09/12/24 Attending physician: Rene Holden Consults: 09/09/24 11:40 Consult Physician Urgent Consulting Provider: [facility] Consult Reason/Comments: Chest pain Do you want consulting provider notified?: Yes Primary care physician: [facility] Course: Chief Complaint: Chest tightness Pleasant 84-year-old patient who follows with Dr. Rey. Chronic medical conditions include aortic aneurysm, gout, coronary bypass, pacemaker. Patient presents with chest tightness off and on to his family doctor. Yesterday. Told him to come in. Also get a bit short of breath. Little phlegm. No fever no chills. Has a pacemaker. Has not had a stress test in the recent past. Normally able to walk a fair distance on his own pace. September 10: Seen this morning. Sitting edge of bed. Some antianginal medications added by cardiology. Son present. Did ambulate in the hallway. Depending on clinical course possible cardiac catheterization tomorrow. September 11: Because of patient's creatinine cardiac catheterization postponed to tomorrow. Patient to continue to get normal saline at 50 cc an hour. Careful review of low EF. Hold off Lasix in the morning in view of cardiac cath. Discussed with patient. Patient still had some chest discomfort yesterday after change of medications. September 12: Patient did walk in the hallway. No cardiac symptoms. Cardiology decided to not proceed for cardiac catheterization. Manage medically. Creatinine 1.4. Care was discussed with the patient his girlfriend and [id number] at the bedside. Questions answered. Discussion and discharge planning more than 35 minutes Social history: Lives alone. Stopped smoking in 1983. Started the age of 14 less than a pack a day. Alcohol occasionally. Used to work in a [employer] shop Physical examination: VITAL SIGNS: 97.6, 65, 15, 149 x 75, 95% room air GENERAL: Sitting,, comfortable EYES: Pupils equal. Conjunctiva karolina l. HEENT: External appearance of nose and ears normal, oral cavity grossly normal. NECK: JVD not raised; masses not palpable. HEART: First and second heart sounds are normal; no edema. LUNGS: Respiratory rate normal; decreased breath sounds. ABDOMEN: Soft, nontender, liver spleen not palpable, no masses palpable. PSYCH: Alert and oriented x3; mood and affect karolina l. MUSCULOSKELETAL:No Clubbing/cyanosis;muscles-grossly intact INVESTIGATIONS, reviewed in the clinical context: September 12: Potassium 4.5 creatinine 1.4 September 11: Potassium 4.6 BUN 30 creatinine 1.51 Echo: EF 35 to 40%. Anterior apical wall appears to be more hypokinetic with moderate MR. Mild to moderate AR. Moderate TR. September 09, 2024: White count 9.9 hemoglobin 15.1 platelets 370 sodium 140 potassium 4.5 BUN 34 creatinine 1.37 Troponin I 0.014, 0.016, 0.017 Influenza type A, type B, RSV, SARS-CoV-2: Not detected EKG tracing personally reviewed by me-ventricular paced rhythm Chest x-ray film personally reviewed by me-pacemaker. Some hyperinflation Assessment plan: -Anterior chest wall tightness off-and-on. With the patient known CAD with a prior bypass: Probable unstable angina: Improved Negative troponin. Telemetry. Cardiology following Coreg increased to 12.5 twice daily. Ranexa 500 twice daily added. Ambulate in hallway today. No further symptoms. Not for cardiac catheterization. -Chronic CHF exacerbation,, systolic dysfunction EF 35-40 %. Aldactone. Cozaar. Farxiga. Lasix -Moderate mitral, mild to moderate tricuspid regurgitation. Moderate AR. -COPD in a prior smoker DuoNeb 3 times daily -Coronary artery disease status post CABG Coreg. Aspirin -BPH Flomax -GERD Prilosec -Chronic kidney disease . Stage III. Likely nephrosclerosis. Follow labs outpatient. -Full code Disposition: Home Past Medical History Past Medical History: Heart Failure, COPD Additional Past Medical History / Comment(s): aortic aneurysm,gout, whole repaired esophagus History of Any Multi-Drug Resistant Organisms: None Reported Past Surgical History: Coronary Bypass/CABG, Hernia Repair, Pacemaker Additional Past Surgical History / Comment(s): pacemaker, aortic aneurysm repair, 5 vessel bypass Past Anesthesia/Blood Transfusion Reactions: No Reported Reaction Type of Cardiac Device: Permanent Pacemaker Device Placement Date:: 2014 Past Psychological History: No Psychological Hx Reported Smoking Status: Former smoker Past Alcohol Use History: Occasional Additional Past Alcohol Use History / Comment(s): quit 1983 starting smoking age 14 <1ppd Past Drug Use History: None Reported Plan - Discharge Summary Discharge Rx Participant: No New Discharge Prescriptions: New carvediloL [Coreg] 12.5 mg PO BID #60 tab Ranolazine [Ranexa] 1,000 mg PO Q12HR #60 tab Isosorbide Mononitrate ER [Imdur] 60 mg PO DAILY #60 tab Nitroglycerin Sl Tabs [Nitrostat] 0.4 mg SUBLINGUAL Q5M PRN #60 tab PRN Reason: Chest Pain Continue ALPRAZolam [Xanax] 0.5 mg PO HS Multivitamins, Thera [Multivitamin (formulary)] 1 tab PO DAILY Rivaroxaban [Xarelto] 15 mg PO DAILY Tamsulosin [Flomax] 0.4 mg PO HS Aspirin EC [Ecotrin Low Dose] 81 mg PO DAILY Losartan [Cozaar] 25 mg PO DAILY tab Omeprazole [PriLOSEC] 40 mg PO DAILY Atorvastatin [Lipitor] 40 mg PO W/SUPPER Dapagliflozin Propanediol [Farxiga] 10 mg PO DAILY #30 tab Furosemide [Lasix] 40 mg PO DAILY Vitamin D (Unknown Dose) 1 cap PO W/SUPPER Vitamin C (Unknown Dose) 1 tab PO HS Oxybutynin Chloride [oxyBUTYnin chloride ER] 10 mg PO HS Discontinued carvediloL [Coreg] 6.25 mg PO BID-W/MEALS Isosorbide Mononitrate ER [Imdur] 30 mg PO DAILY Discharge Medication List ALPRAZolam [Xanax] 0.5 mg PO HS 08/30/15 [History] Multivitamins, Thera [Multivitamin (formulary)] 1 tab PO DAILY 08/30/15 [History ] Rivaroxaban [Xarelto] 15 mg PO DAILY 10/17/19 [History] Tamsulosin [Flomax] 0.4 mg PO HS 05/08/22 [History] Aspirin EC [Ecotrin Low Dose] 81 mg PO DAILY 05/31/24 [History] Atorvastatin [Lipitor] 40 mg PO W/SUPPER 05/31/24 [History] Dapagliflozin Propanediol [Farxiga] 10 mg PO DAILY #30 tab 06/02/24 [Rx] Losartan [Cozaar] 25 mg PO DAILY tab 06/02/24 [Rx] Furosemide [Lasix] 40 mg PO DAILY 09/09/24 [History] Omeprazole [PriLOSEC] 40 mg PO DAILY 09/09/24 [History] Oxybutynin Chloride [oxyBUTYnin chloride ER] 10 mg PO HS 09/09/24 [History] Vitamin C (Unknown Dose) 1 tab PO HS 09/09/24 [History] Vitamin D (Unknown Dose) 1 cap PO W/SUPPER 09/09/24 [History] Isosorbide Mononitrate ER [Imdur] 60 mg PO DAILY #60 tab 09/12/24 [Rx] Nitroglycerin Sl Tabs [Nitrostat] 0.4 mg SUBLINGUAL Q5M PRN #60 tab 09/12/24 [Rx] Ranolazine [Ranexa] 1,000 mg PO Q12HR #60 tab 09/12/24 [Rx] carvediloL [Coreg] 12.5 mg PO BID #60 tab 09/12/24 [Rx] Follow up Appointment(s)/Referral(s): Avel Monet MD [STAFF PHYSICIAN] - 1 Week (office will call patient with appointment ) Seth Rey DO [Primary Care Provider] - 1-2 days Patient Instructions/Handouts: Chest Pain (DC) Discharge Disposition: HOME SELF-CARE
[2024-09-13] MEDS ORDERED: FUROSEMIDE 40 MG TAB PO SCH (09:00)
== END 2024-09-12 12:07 | disposition home or self-care (01) | DRG 302 ==
LOC: EC 09:44 → 6NMEDSUR 11:41 → OBSVTOIN 09-11 15:33
PROVIDERS: ADMIT Hospitalist; ATTEND Hospitalist
DX: I25.10 Atherosclerotic heart disease of native coronary artery without angina pectoris (principal); I50.23 Acute on chronic systolic (congestive) heart failure; I13.0 Hypertensive heart and chronic kidney disease with heart failure and stage 1 through stage 4 chronic kidney disease, or unspecified chronic kidney disease; J44.9 Chronic obstructive pulmonary disease, unspecified; N18.30 Chronic kidney disease, stage 3 unspecified; I08.3 Combined rheumatic disorders of mitral, aortic and tricuspid valves; I48.0 Paroxysmal atrial fibrillation; E78.00 Pure hypercholesterolemia, unspecified; Z11.52 Encounter for screening for COVID-19; N40.0 Benign prostatic hyperplasia without lower urinary tract symptoms; I25.5 Ischemic cardiomyopathy; M10.9 Gout, unspecified; Z79.01 Long term (current) use of anticoagulants; Z79.82 Long term (current) use of aspirin; Z79.84 Long term (current) use of oral hypoglycemic drugs; Z79.899 Other long term (current) drug therapy; Z87.891 Personal history of nicotine dependence; Z95.0 Presence of cardiac pacemaker; Z95.1 Presence of aortocoronary bypass graft; Z87.19 Personal history of other diseases of the digestive system; Z88.5 Allergy status to narcotic agent
CPT/HCPCS: 36415; 71046; 80048; 80053; 80061; 83735; 84484; 85025; 85610; 85730; 87636; 93005; 93306; 94640; 94760; 99285

== ENCOUNTER → 2024-09-29 | Outpatient (CLI) | payer MEDICARE, BC ==
[2024-09-29 11:21] LABS: NT-Pro-B-Type Natriuretic Pept 1520 pg/mL (0-450)
[2024-09-29 11:24] LABS: ALT 21 U/L (10-49); AST 31 U/L (14-35); Albumin/Globulin Ratio 1.38 Ratio (1.60-3.17); Alkaline Phosphatase 119 U/L (41-126); BUN/Creat Ratio 20.32 Ratio (12.00-20.00); Blood Urea Nitrogen 38.6 mg/dL (9.0-27.0); Calcium 9.6 mg/dL (8.7-10.3); Carbon Dioxide 30.2 mmol/L (21.6-31.8); Chloride 99 mmol/L (96-109); Chol/HDL Ratio 2.73 Ratio; Globulin 2.9 g/dL (1.6-3.3); Glucose 96 mg/dL (70-110); LDL Cholesterol,Calculated 43.2 mg/dL (0.0-131.0); Potassium 5.4 mmol/L (3.5-5.5); Sodium 138 mmol/L (135-145); Total Bilirubin 0.7 mg/dL (0.3-1.2); Total Protein 6.9 g/dL (6.2-8.2)
== END | disposition home or self-care (01) ==
LOC: LABWHC1 07:43
PROVIDERS: ATTEND Internal Medicine Interventional Cardiology
DX: I50.22 Chronic systolic (congestive) heart failure (principal); E78.2 Mixed hyperlipidemia
CPT/HCPCS: 36415; 80053; 80061; 83880

== ENCOUNTER → 2024-11-19 | Outpatient (CLI) | payer MEDICARE, BC ==
[2024-11-19 16:05] LABS: BUN/Creat Ratio 23.69 Ratio (12.00-20.00); Blood Urea Nitrogen 37.9 mg/dL (9.0-27.0); Calcium 9.7 mg/dL (8.7-10.3); Carbon Dioxide 28.8 mmol/L (21.6-31.8); Chloride 100 mmol/L (96-109); Glucose 129 mg/dL (70-110); Potassium 4.9 mmol/L (3.5-5.5); Sodium 140 mmol/L (135-145)
[2024-11-19 16:26] LABS: Prostate Specific Antigen <0.01 ng/mL (0.000-6.500)
== END | disposition home or self-care (01) ==
LOC: LABWHC1 11:50
PROVIDERS: ATTEND Urology
DX: C61 Malignant neoplasm of prostate (principal)
CPT/HCPCS: 36415; 80048; 84153

== ENCOUNTER → 2024-11-20 | Outpatient (CLI) | payer MEDICARE, BC ==
--- NOTE | 2024-11-20 07:44 | US ---
EXAMINATION TYPE: US kidneys/renal and bladder DATE OF EXAM: 11/20/2024 COMPARISON: US CLINICAL INDICATION: Male, 84 years old with history of N281 RENAL CYST; Known renal cysts TECHNIQUE: Grayscale imaging of the bilateral kidneys and urinary bladder: FINDINGS: EXAM MEASUREMENTS: Right Kidney: 10.0 x 4.8 x 4.7 cm Left Kidney: 11.1 x 4.8 x 4.0 cm Right Kidney: Multiple cysts scattered throughout, largest at the upper pole measures 4.3 x 3.9 x 3.5 cm versus 3.6 x 3.4 x 3.1 cm in 2018. No hydronephrosis. Left Kidney: Multiple cysts scattered throughout, largest at the upper pole= 2.5 x 2.2 x 2.5 cm with thin internal septation, prev measurement in 2018= 2.9 x 2.2 x 0.2 cm. No hydronephrosis. Bladder: wnl Bilateral Jets seen: No IMPRESSION: 1. No hydronephrosis. 2. Benign bilateral renal cortical cysts measuring up to 4.3 cm, slightly increased from 2018 where t he cyst measured up to 3.6 cm. 3. The dominant 2.5 cm cyst in the left kidney shows minimal internal complexity but has decreased in size from 2018 where it measured 2.9 cm. This indicates a benign etiology. [facility], , 11/20/2024 7:41 AM
== END | disposition home or self-care (01) ==
LOC: RADUSWWP 07:03
PROVIDERS: ATTEND Urology
DX: N28.1 Cyst of kidney, acquired (principal)
CPT/HCPCS: 76770

== ENCOUNTER → 2025-01-05 | Outpatient (CLI) | payer MEDICARE, BC ==
[2025-01-05 11:02] LABS: Anion Gap 11.20 mmol/L (4.00-12.00); BUN/Creat Ratio 12.07 Ratio (12.00-20.00); Blood Urea Nitrogen 16.9 mg/dL (9.0-27.0); Calcium 8.8 mg/dL (8.7-10.3); Carbon Dioxide 30.8 mmol/L (21.6-31.8); Chloride 100 mmol/L (96-109); Glucose 89 mg/dL (70-110); NT-Pro-B-Type Natriuretic Pept 4604 pg/mL (0-450); Potassium 4.1 mmol/L (3.5-5.5); Sodium 142 mmol/L (135-145)
== END | disposition home or self-care (01) ==
LOC: LABWHC1 06:48
PROVIDERS: ATTEND Internal Medicine Interventional Cardiology
DX: I50.22 Chronic systolic (congestive) heart failure (principal); N18.9 Chronic kidney disease, unspecified
CPT/HCPCS: 36415; 80048; 83880